=== PATIENT | male | born 1940 | race Caucasian/White ===

== ENCOUNTER 2016-10-10 11:27 | Outpatient (CLI) | payer MEDICARE, OTHER ==
[2016-10-10] VITALS (53 sets, daily range): BP systolic 100–212; BP diastolic 50–118; PULSE 47–83; RESP 10–32; TEMP 96.3–97.4; O2SAT 94–99; Ht 165.1 cm; Wt 119.1 kg
[~2016-10-10] VITALS: Ht 165.1 cm; Wt 119.1 kg
[~2016-10-10 11:27] MED LIST: ALBU8.5H INH; ASPI-557 PO; CARV25TA28 PO; CYAN100T PO; DULO60CA25 PO; FURO20TA4 PO; GABA-215 PO; GEMF600T PO; GLUC1TAB PO; INSU500V SQ; ONDA4TAB7 PO; ROSU20TA23 PO; TELM1TAB11 PO; WARF5TAB76 PO; [UNRECOGNIZED DRUG - CODE] PO
--- NOTE | 2016-10-10 11:35 | NUR ---
ADMIT PT AMBULATORY TO ROOM 126. ATTENDING.
[2016-10-10] MEDS: NORMAL SALINE 1,000 ML IV SCH ×2 (12:20→18:54)
[2016-10-10 12:30] LABS: BASOPHILS # (AUTO) 0.1 T/MM3 (0-0.2); BASOPHILS % (AUTO) 0.8 % (0-2); EOSINOPHILS # (AUTO) 0.4 T/MM3 (0-0.5); EOSINOPHILS % (AUTO) 5.9 % (0-4); HCT - HEMATOCRIT 47.7 % (41-53); HGB - HEMOGLOBIN 16.2 GM/DL (13.5-17.5); IMMATURE GRANULOCYTE # (AUTO) 0.03 T/MM3 (0.00-0.03); IMMATURE GRANULOCYTE % (AUTO) 0.4 % (0.0-0.5); INR 1.66 (0.76-1.04); LYMPHOCYTES # (AUTO) 2.8 T/MM3 (1-4.8); LYMPHOCYTES % (AUTO) 38.9 % (23-45); MEAN CORPUSCULAR VOLUME 91.4 UM3 (80-100); MEAN PLATELET VOLUME 10.3 UM3 (9.4-12.4); MONOCYTES # (AUTO) 0.6 T/MM3 (0-0.8); NEUTROPHILS #(AUTO)-ABSOLUTE 3.3 T/MM3 (1.8-7.7); PROTHROMBIN TIME 18.1 SEC (9.31-12.49); RED BLOOD COUNT 5.22 M/MM3 (4.50-5.90); WBC - WHITE BLOOD COUNT 7.1 T/MM3 (4.5-11.0)
[2016-10-10 12:35] LABS: ANION GAP 14 MEQ/L (5-15); BUN/CREATININE RATIO 23 RATIO (6-26); CALCIUM 9.6 MG/DL (8.4-10.2); CHLORIDE 100 MEQ/L (98-107); CO2 - CARBON DIOXIDE 25 MEQ/L (22-30); CREATININE 1.4 MG/DL (0.8-1.5); GLOMERULAR FILTRATION RATE 49; GLUCOSE 324 MG/DL (75-110); POTASSIUM 4.5 MEQ/L (3.6-5); SODIUM 139 MEQ/L (134-144)
[2016-10-10] MEDS ORDERED: MECL-103 PO (12:53)
[2016-10-10] MEDS ORDERED: CHOL200026 PO (12:53)
[2016-10-10] MEDS ORDERED: ACET-62 PO (12:53)
[2016-10-10] MEDS ORDERED: HEPARIN 1,000units in NS 500ml BAG IV ONE (13:21)
[2016-10-10] MEDS ORDERED: LIDOCAINE 1% (10mg/ml) 30ml SDV ONE (13:21)
--- NOTE | 2016-10-10 13:29 | NUR ---
CM CM IN TO VISIT PATIENT, HE IS A&O. IS AT THE BEDSIDE. PATIENT PLANS TO DISCHARGE HOME, DENIES DISCHARGE NEEDS. CM CONTACT INFORMATION PROVIDED. PATIENT AND BOTH ARE INTERESTED IN DPOA AND LIVING WILL INFORMATION, THIS WAS PROVIDED. Addendum: 10/10/16 at 1330 by BUSTER WASHINGTON RN Amended: Links added.
--- NOTE | 2016-10-10 13:32 | NUR ---
CATH PT TO K 12 PRINCIPAL PER CATH CART. FAMILY ATTENDING.
--- NOTE | 2016-10-10 13:33 | NUR ---
CM LACE SCORE IS 5, NO FURTHER FOLLOW UP IS NEEDED.
[2016-10-10] MEDS ORDERED: FENTANYL 100mcg/2ml INJECTION ONE (13:38)
[2016-10-10] MEDS ORDERED: MIDAZOLAM 2mg/2ml INJECTION ONE (13:39)
[2016-10-10] MEDS ORDERED: SALINE FLUSH 10ml SYRINGE ONE (13:39)
[2016-10-10] MEDS ORDERED: CLOPIDOGREL 75 MG TABLET ONE (14:08)
[2016-10-10] MEDS ORDERED: IOHEXOL 350mg/ml 200ml BOTTLE ONE (14:11)
[2016-10-10] MEDS ORDERED: ASPIRIN 325 MG TABLET ONE (14:25)
[2016-10-10] MEDS ORDERED: LORAZEPAM 2 MG/ML INJECTION IV PRN (14:30)
[2016-10-10] MEDS ORDERED: ONDANSETRON 4mg/2ml INJECTION IV PRN (14:30)
[2016-10-10] MEDS ORDERED: MAG-AL + SIM LIQUID 30 ML UDC PO PRN (14:30)
[2016-10-10] MEDS ORDERED: BISACODYL 10 MG SUPPOSITORY RECTALLY PRN (14:30)
[2016-10-10] MEDS ORDERED: HYDROCODONE/APAP 5 mg/325 mg TABLET PO PRN (14:30)
[2016-10-10] MEDS ORDERED: PROMETHAZINE 25 MG INJECTION IV PRN (14:30)
[2016-10-10] MEDS ORDERED: MORPHINE SULFATE 4 MG SYRINGE IV PRN (14:30)
[2016-10-10] MEDS ORDERED: LORAZEPAM 1 MG TABLET PO PRN (14:30)
[2016-10-10] MEDS ORDERED: BISACODYL 5 MG E.C. TABLET PO PRN (14:30)
[2016-10-10] MEDS ORDERED: NITROGLYCERIN 0.4 MG SUBLINGUAL TABLET SL PRN (14:30)
[2016-10-10] MEDS ORDERED: MILK OF MAGNESIA 30 ML SUSP PO PRN (14:30)
[2016-10-10] MEDS ORDERED: METOCLOPRAMIDE 10mg/2ml INJECTION IV PRN (14:30)
[2016-10-10] MEDS ORDERED: ACETAMINOPHEN 325 MG TABLET PO PRN (14:30)
--- NOTE | 2016-10-10 14:50 | NUR ---
RETURN PT RETURNED TO ROOM 126 PER CATH CART WITH Mabel FRIAS RN HOLDING PRESSURE DOWN THE HURLEY. RT GROIN SITE HAS HEMATOMA LATERAL AND DISTAL TO PUNCTURE SITE. DRESSING TO BE APPLIED IN ROOM BY Mabel FRIAS RN.
[2016-10-10] MEDS: MORPHINE SULFATE 4 MG SYRINGE IV PRN ×2 (15:09→18:40)
[2016-10-10] MEDS ORDERED: LABETALOL 100mg/20ml INJECTION IV ONE (15:30)
[2016-10-10] MEDS ORDERED: FENTANYL 100mcg/2ml INJECTION IV ONE (15:30)
--- NOTE | 2016-10-10 15:58 | NUR ---
STATUS HELD PRESSURE FOR 45 MINUTES. MORPHINE AND LABETALOL IV GIVEN DURING THIS TIME (SEE EMAR). PT SLEEPING OFF AND ON. DENIES PAIN AT THIS TIME. HEMATOMA IS MARKED. CONTINUES TO BE QUITE NOTICEABLE BUT DOES NOT APPEAR TO BE GROWING, PER THE LINES OF DEMARCATION. AT BEDSIDE.
--- NOTE | 2016-10-10 16:39 | CVPROF ---
CARDIAC CATHETERIZATION, PERCUTANEOUS INTERVENTION DATE OF PROCEDURE October 10, 2016 The patient is a pleasant 76-year-old gentleman with history of coronary artery disease and coronary artery bypass graft with abnormal stress test and was referred for further evaluation by cardiac catheterization and possible intervention. Informed consent was obtained after explaining the procedure and the potential risks to the patient who agreed to proceed with the procedure. PROCEDURE 1. Left heart catheterization. 2. Coronary angiography. 3. Left ventriculography. 4. Bypass angiography. 5. Selective SAN angiography. 6. PTCA of the posterolateral artery through the vein graft to RCA. 7. Right femoral angiography to visualize the vessel for Mynx deployment. TECHNIQUE The patient was prepped and draped in the usual sterile techniques. Conscious sedation was performed using Versed and fentanyl. 1% lidocaine was used for local anesthesia. Using modified Seldinger technique, arterial access was obtained into the right femoral artery with placement of a 6-Brazilian arterial sheath. 9000 units of heparin was administered for anticoagulation. Due to tortuosity of the iliac and abdominal aorta we exchanged our sheath for a 6-Brazilian 45 cm Destination sheath. At the end of the procedure the long sheath was exchanged for a short 6-Brazilian sheath. LEFT VENTRICULOGRAPHY Left ventriculography in single-plane VIEIRA shallow projection showed normal LV systolic function with ejection fraction of 60% with no mitral regurgitation or gradient across the aortic valve. LVEDP was about 11. CORONARY ANGIOGRAPHY Left main had distal 30%-40% stenosis. The left anterior descending artery was occluded proximally. Left circumflex artery had about 30%-40% stenosis. A large marginal coming off of the circumflex had another 40% stenosis. Right coronary artery was occluded. SAN to LAD was patent with excellent flow. A vein graft to obtuse marginal was occluded. A vein graft to right coronary artery was patent. However, the posterolateral artery, which was a large vessel, had two lesions of about 70%-80% stenosis. After reviewing the angiograms we decided to proceed with intervention on the posterolateral artery through the vein graft to RCA. A 6-Brazilian Barbeau guide was advanced to the ostium of the vein graft to RCA. A Whisper wire was advanced through the graft into the distal posterolateral artery. We attempted to get a 3.0 x 18 drug-eluting Resolute Integrity stent to the lesion site. However, it would not cross due to severe tortuosity. Next, we changed our stent for a 3.0 x 20 balloon which was delivered to the mid lesion site where it was inflated up to 14 and 16 atmospheres. Next, the balloon was pulled to the proximal lesion site where it was inflated up to 16 atmospheres. The next angiogram showed excellent results with less than or equal to 20% residual stenosis. Since there was severe tortuosity and we knew that the stent was not going to cross the lesion, we did not reattempt to advance the stent to the lesion site. The patient tolerated the procedure well with no complications. At the end of the procedure the long sheath was exchanged for a short 6-Brazilian sheath and we attempted to deploy a Mynx closure device. However, it did not close the vessel and therefore manual pressure was applied. The patient tolerated the procedure well with no complications. IMPRESSION 1. Coronary artery disease as described above. 2. Normal LV systolic function with ejection fraction of 60%. 3. Successful PTCA of the posterolateral artery through the vein graft to RCA. PLAN Will keep him on aspirin at least for a month and continue risk modification in future. FRANKY
--- NOTE | 2016-10-10 17:00 | NUR ---
DEE CALDWELL, IN ROOM FOR EVAL OF HEMATOMA
--- NOTE | 2016-10-10 18:14 | NUR ---
RAPID RESPONSE DR. COBOS IN ROOM WELL OTHER STAFF FOR RR
[2016-10-10] MEDS: ATROPINE 1 MG/ML VIAL IV PRN ×2 (18:15→18:19)
--- NOTE | 2016-10-10 18:18 | NUR ---
INSURANCE MANAGER CONTACT DR. HART IN ROOM FOR PT EVAL. GAVE ORDERS WHICH INCLUDED TRANSFERING PT TO CCU.
--- NOTE | 2016-10-10 18:19 | NUR ---
ATROPINE ATROPINE 0.5MG IV ADMINISTERED AT [address] COBOS VERBAL INSTRUCTIONS FOR HR OF 47.
--- NOTE | 2016-10-10 18:30 | NUR ---
RAPID RESPONSE TEAM RESPONDING TO RAPID RESPONSE: LENORE FRANCE RN, HEDY SCHULTZ, YRIS MARTIN RN, MARIBELL, CCU RN, Lydia GIL, ELISE SHAIKH,, AM. DEE PEREIRA D. WEST, LEONELA.
--- NOTE | 2016-10-10 18:35 | NUR ---
TRANSFER PT TAKEN TO CCU BED 2 VIA S.U. BED. PERSONAL BELONGINGS GATHERED. NOTIFIED OF PT CONDITION AND TRANSFER.
--- NOTE | 2016-10-10 18:35 | NUR ---
Received from Surgical floor for recurring large hematoma after heart catheterization. VSS, Sats good.
--- NOTE | 2016-10-10 18:50 | NUR ---
have been holding groin pressure, ultrasound is here to check site, will use ultrasound device head to hold pressure on artery neck.
--- NOTE | 2016-10-10 19:00 | NUR ---
Groin pressure held with ultrasound device for 10 minutes after continually holding pressure as previously charted.
[2016-10-10] MEDS ORDERED: INSULIN REGULAR 500 UNIT/ML SQ ONE (20:15)
[2016-10-10] MEDS ORDERED: ONDANSETRON 4mg/2ml INJECTION IM PRN (21:00)
--- NOTE | 2016-10-10 22:00 | NUR ---
Status Talked with Bianka Cross APRN about patients BGM of 315 and discussed that patient has his own Humulin R U500 that he takes. After receiving orders to given patients normal evening dose, patient had an sudden episode of emesis. Afterwards patient verbalized feeling better. Called [place] back and discussed with her about the patients emesis and clarified if it was still safe to give Zofran and then the Insulin with a snack. Patient was given Zofran and his evening Insulin and was able to eat without any nausea. Groin site remains the same and will be monitored carefully during the night.
[2016-10-11] VITALS (97 sets, daily range): BP systolic 71–155; BP diastolic 40–86; PULSE 64–92; RESP 10–34; TEMP 98.2–99; O2SAT 88–99
[2016-10-11] MEDS ORDERED: ACETAMINOPHEN 500 MG TABLET PO PRN (01:45)
[2016-10-11] MEDS: MECLIZINE 25 MG PO SCH ×3 (01:45→21:34)
[2016-10-11 05:09] LABS: ANION GAP 11 MEQ/L (5-15); BUN/CREATININE RATIO 23 RATIO (6-26); CALCIUM 9.1 MG/DL (8.4-10.2); CHLORIDE 105 MEQ/L (98-107); CO2 - CARBON DIOXIDE 24 MEQ/L (22-30); CREATININE 1.4 MG/DL (0.8-1.5); GLOMERULAR FILTRATION RATE 49; GLUCOSE 160 MG/DL (75-110); POTASSIUM 4.8 MEQ/L (3.6-5); SODIUM 140 MEQ/L (134-144)
[2016-10-11 05:38] LABS: BASOPHILS # (AUTO) 0.1 T/MM3 (0-0.2); BASOPHILS % (AUTO) 0.5 % (0-2); EOSINOPHILS # (AUTO) 0.3 T/MM3 (0-0.5); HCT - HEMATOCRIT 45.3 % (41-53); HGB - HEMOGLOBIN 15.3 GM/DL (13.5-17.5); IMMATURE GRANULOCYTE # (AUTO) 0.04 T/MM3 (0.00-0.03); IMMATURE GRANULOCYTE % (AUTO) 0.4 % (0.0-0.5); LYMPHOCYTES # (AUTO) 1.8 T/MM3 (1-4.8); LYMPHOCYTES % (AUTO) 19.4 % (23-45); MEAN CORPUSCULAR HGB 30.5 UUG (26-34); MEAN CORPUSCULAR HGB CONC(MCHC 33.8 GM/DL (31-37); MEAN CORPUSCULAR VOLUME 90.4 UM3 (80-100); MEAN PLATELET VOLUME 10.5 UM3 (9.4-12.4); MONOCYTES # (AUTO) 0.9 T/MM3 (0-0.8); NEUTROPHILS #(AUTO)-ABSOLUTE 6.4 T/MM3 (1.8-7.7); NEUTROPHILS % (AUTO) 67.7 % (33-66); RED BLOOD COUNT 5.01 M/MM3 (4.50-5.90); WBC - WHITE BLOOD COUNT 9.5 T/MM3 (4.5-11.0)
--- NOTE | 2016-10-11 05:51 | NUR ---
Shift Summary Patient has slept well during most of the night. No pain was reported during the night or SOA. Patient did have an episode of dizziness with nausea in which PRN Reglan was given. HR has been 60-70s Sinus Rhythm, BP 120-110s/60-70s, O2 90% on 1L NC. Groin site has large purple bruise below insertion site and has some firm tissue around insertion site. Hematoma has decreased in size. Dressing is CDI. Patient does take Humulin R U500 (500units/1mL) three times a day. Will discuss with Pharmacy to ensure correct dosing is ordered for patient.
--- NOTE | 2016-10-11 06:28 | NUR ---
Morning BGM Morning BGM was 96 at 0630. Prior BGM at 0400 was 155. Do to drop in blood sugar, crackers and PB was given.
[2016-10-11] MEDS ORDERED: INSU500I SQ ×3 (07:30)
[2016-10-11] MEDS ORDERED: INSULIN REGULAR 100 UNIT/ML SQ SCH ×3 (08:00→17:30)
--- NOTE | 2016-10-11 08:21 | DI ---
Indication: ITS.REASON: R/O PSEUDOANEURYSM PROCEDURE: US ARTERIAL EXTREMITY LOWER RT: Technique: Grayscale color and duplex Doppler imaging was performed of the arterial tree of the right groin area. Findings: Normal waveforms in the right proximal superficial femoral artery and common femoral artery. Arterial flow was noted in the common femoral vein. There is a pseudoaneurysm present with a 4 mm neck arising from the common femoral artery. The pseudoaneurysm is predominantly occluded with a small area of two and fro flow remaining centrally. The overall size is 2.6 x 1.5 x 4.5 cm. There is an additional pseudoaneurysm pocket with hematoma present measuring 3.8 x 1.6 x 3.5 cm in size. Compression was applied was no residual flow seen in the pseudoaneurysms and normal waveforms seen in the common femoral artery and vein. IMPRESSION: Findings as above. There is a preliminary report by virtual radiologic. .
[2016-10-11] MEDS ORDERED: TELMISARTAN 80 MG TABLET PO SCH (09:00)
[2016-10-11] MEDS ORDERED: HYDROCHLOROTHIAZIDE 25 MG TABLET PO SCH (09:00)
[2016-10-11] MEDS: POM CARVEDILOL 25 MG TABLET PO SCH (09:00)
[2016-10-11] MEDS ORDERED: HYDROCHLOROTHIAZIDE PO SCH (09:00)
[2016-10-11] MEDS: CYANOCOBALAMIN (B-12) 100mcg TABLET PO SCH (09:00)
[2016-10-11] MEDS ORDERED: TELMISARTAN PO SCH (09:00)
[2016-10-11] MEDS ORDERED: ASPIRIN *EC* 81mg TABLET PO SCH (09:00)
[2016-10-11] MEDS: POM ROSUVASTATIN 20 MG TABLET PO SCH (09:01)
--- NOTE | 2016-10-11 09:01 | DI ---
Indication: ITS.REASON: pseudoaneurysm PROCEDURE: US ARTERIAL EXTREMITY LOWER RT: Technique: Grayscale color and duplex Doppler imaging was performed of the arterial tree of the right groin. Findings/ IMPRESSION: The pseudoaneurysm remains thrombosed. No flow in the two adjacent right groin hematomas. Normal waveforms in the common femoral artery and vein. .
[2016-10-11] MEDS: DULOXETINE 60 MG PO SCH (09:02)
[2016-10-11] MEDS: POM ASPIRIN *EC* 81mg TABLET PO SCH (09:03)
[2016-10-11] MEDS: DIGOXIN 250 MCG PO SCH (09:04)
[2016-10-11] MEDS: FUROSEMIDE 20 MG PO SCH (09:05)
[2016-10-11] MEDS: TELMISARTAN PO SCH (09:06)
[2016-10-11] MEDS: HYDROCHLOROTHIAZIDE PO SCH (09:06)
[2016-10-11] MEDS: GABAPENTIN 300 MG PO SCH ×4 (09:07→21:34)
[2016-10-11] MEDS: NORMAL SALINE 1,000 ML IV SCH ×2 (09:32→14:19)
--- NOTE | 2016-10-11 10:30 | NUR ---
Activity: am cares are done. The patient is ambulated about the ccu with 2 people assisting and gait belt. He states he feels light headed at first. He is assisted to the recliner.
--- NOTE | 2016-10-11 11:15 | NUR ---
BP: is 70-80 systolic. Mahi Richey APRN is and is notified. Will monitor.
[2016-10-11] MEDS ORDERED: INSULIN REGULAR 500 UNIT/ML SQ SCH ×4 (11:45→17:15)
--- NOTE | 2016-10-11 13:00 | NUR ---
BP: the patient remains sitting up. Denies discomfort or pain in his groin. The bp went up briefly while the patient was eating lunch and talking with his . The bp systolic is now 70-80's sytolic. Will notify Mahi Richey APRN.
[2016-10-11] MEDS ORDERED: NORMAL SALINE 500 ML IV ONE ×2 (13:45→14:15)
--- NOTE | 2016-10-11 13:45 | NUR ---
Fluid Bolus: NS 500 ml IV is infusing at a wide open rate.
--- NOTE | 2016-10-11 14:00 | NUR ---
Activity: the patient is assisted back to bed. Continues to c/o light headedness upon rising. When back to bed the groin is visualized. No increase in the size of the hematoma is noted.
--- NOTE | 2016-10-11 14:15 | NUR ---
BP: 71 systolic. Report is given to Mahi Richey APRN. #2 fluid bolus NS 500 ml IV is started.
[2016-10-11 14:38] LABS: HGB - HEMOGLOBIN 13.6 GM/DL (13.5-17.5)
--- NOTE | 2016-10-11 15:53 | NUR ---
CM CM IN TO VISIT WITH PT. HE IS ALERT AND ORIENTED. HIS IS PRESENT. PT PLANS TO DC HOME. HE DENIES DC NEEDS. HE IS GIVEN CM CONTACT INFORMATION. Addendum: 10/11/16 at 1554 by HAYDEN ULLOA RN Amended: Links added.
--- NOTE | 2016-10-11 16:00 | NUR ---
BP: systolic is >100. NS is infusing at 75 ml/hr. The patient is resting quietly.
--- NOTE | 2016-10-11 17:00 | NUR ---
BGM: the patient requests that we check his BGM. He feels shaky and diaphoretic. BGM is 54. OJ and a sandwich is given per patient requests.
--- NOTE | 2016-10-11 17:30 | NUR ---
BGM: upon recheck is 88.
--- NOTE | 2016-10-11 18:40 | NUR ---
Activity: The patient has been sitting up in the chair for his supper. He denies dizziness. BP systolic is >100.
--- NOTE | 2016-10-11 19:15 | NUR ---
Activity Ambulates around nurses station with assist of 2 using GB, pt became somewhat SOA by the end of walk, denies difficulty breathing.
--- NOTE | 2016-10-11 19:30 | NUR ---
Output Pt attempts to void at RNs request unsuccessfully and attempts to pass BM with only smear out, no void since cath, pt denies urge to void at this time.
--- NOTE | 2016-10-11 21:30 | NUR ---
BGM is 111 at this time, pt is concerned his levels will decrease during night and requests HS snack, RN provides tk crackers with PB and applesauce, pt has no further concerns.
[2016-10-12] VITALS (13 sets, daily range): BP systolic 122–166; BP diastolic 61–86; PULSE 73–90; RESP 16–31; TEMP 97.9–98.4; O2SAT 91–98
[2016-10-12] MEDS: NORMAL SALINE 1,000 ML IV SCH (01:19)
--- NOTE | 2016-10-12 03:01 | NUR ---
Hypoglycemia Pt requests RN check sugar at time time, reports feeling low. Pt is noted to be diaphoretic, drowsy/fatigued with respiratory rate at 10/min (previously 20-24/min), speech is mumbled and slightly slurred. BGM reveals level of 50, pt requests OJ, applesauce and ice cream, RN also offers turkey sandwich. RN observes pt drink OJ w/o difficulty before providing solid food, pt has no difficultly chewing/swallowing, will recheck BGM after finished eating.
--- NOTE | 2016-10-12 04:30 | NUR ---
F/U Hypoglycemia Recheck PP 114, pt requests milk and tk crackers, recheck again 144, pt is content with this, back to sleep.
[2016-10-12 04:59] LABS: BASOPHILS % (AUTO) 0.5 % (0-2); EOSINOPHILS # (AUTO) 0.4 T/MM3 (0-0.5); EOSINOPHILS % (AUTO) 4.3 % (0-4); HCT - HEMATOCRIT 39.8 % (41-53); HGB - HEMOGLOBIN 13.4 GM/DL (13.5-17.5); IMMATURE GRANULOCYTE # (AUTO) 0.05 T/MM3 (0.00-0.03); IMMATURE GRANULOCYTE % (AUTO) 0.6 % (0.0-0.5); LYMPHOCYTES # (AUTO) 1.8 T/MM3 (1-4.8); LYMPHOCYTES % (AUTO) 20.9 % (23-45); MEAN CORPUSCULAR HGB 31.2 UUG (26-34); MEAN CORPUSCULAR HGB CONC(MCHC 33.7 GM/DL (31-37); MEAN CORPUSCULAR VOLUME 92.6 UM3 (80-100); MEAN PLATELET VOLUME 10.1 UM3 (9.4-12.4); MONOCYTES # (AUTO) 0.8 T/MM3 (0-0.8); MONOCYTES % (AUTO) 9.5 % (0-9.0); NEUTROPHILS #(AUTO)-ABSOLUTE 5.4 T/MM3 (1.8-7.7); NEUTROPHILS % (AUTO) 64.2 % (33-66); WBC - WHITE BLOOD COUNT 8.5 T/MM3 (4.5-11.0)
[2016-10-12] MEDS ORDERED: INSULIN REGULAR 500 UNIT/ML SQ SCH ×2 (07:45)
[2016-10-12] MEDS: POM CARVEDILOL 25 MG TABLET PO SCH (09:43)
[2016-10-12] MEDS: TELMISARTAN PO SCH (09:43)
[2016-10-12] MEDS: HYDROCHLOROTHIAZIDE PO SCH (09:43)
[2016-10-12] MEDS: POM ASPIRIN *EC* 81mg TABLET PO SCH (09:43)
[2016-10-12] MEDS: DIGOXIN 250 MCG PO SCH (09:43)
[2016-10-12] MEDS: POM ROSUVASTATIN 20 MG TABLET PO SCH (09:43)
[2016-10-12] MEDS: FUROSEMIDE 20 MG PO SCH (09:43)
[2016-10-12] MEDS: MECLIZINE 25 MG PO SCH (09:43)
[2016-10-12] MEDS: DULOXETINE 60 MG PO SCH (09:43)
[2016-10-12] MEDS: CYANOCOBALAMIN (B-12) 100mcg TABLET PO SCH (09:44)
[2016-10-12] MEDS: GABAPENTIN 300 MG PO SCH (09:44)
[2016-10-12] MEDS ORDERED: INSULIN REGULAR 500 UNIT/ML SQ ONE (09:45)
--- NOTE | 2016-10-12 11:30 | NUR ---
Discharge Pt discharged home in good condition. Discharge instructions given to pt and pt's spouse. Pt ambulated to ER exit with all personal belongings.
--- NOTE | 2016-10-12 13:50 | PNPDOC ---
YESENIA PEREIRA PAROLE SUPERVISOR 10/12/16 1330: Subjective Date DATE: 10/11/16 TIME: 13:26 Subjective Lazaro is in his bed, he is hypotensive and reports some lightheadedness. He denies chest pain or pressure. Groin site is surrounded by large hematoma, which is unchanged from last evening. Objective Vital Signs Vital signs Vital Signs 10/12/16 10/12/16 10/12/16 10/12/16 02:00 03:00 04:00 04:22 Temp 98.4 Pulse 77 79 77 73 Resp 20 24 16 24 B/P 136/61 147/74 122/65 Pulse Ox 91 96 96 O2 Delivery Room Air Room Air Room Air 10/12/16 10/12/16 10/12/16 10/12/16 05:00 06:00 07:00 08:00 Pulse 80 80 90 76 Resp 17 31 18 B/P 150/80 155/72 166/86 Pulse Ox 97 98 97 O2 Delivery Room Air Room Air Room Air 10/12/16 10/12/16 10/12/16 10/12/16 08:00 09:00 09:43 10:00 Temp 98.3 Pulse 76 82 92 80 Resp 18 18 18 B/P 146/65 131/61 135/70 Pulse Ox 98 96 97 O2 Delivery Room Air Room Air Room Air Telemetry Rhythm: Sinus Rhythm Height (Feet): 5 Height (Inches): 5.00 Weight (Kilograms): 119.100 General Alert, Orientated x 3, Cooperative ENMT (Brief) mucosa moist Neck (Brief) NOT FOUND: JVD, carotid bruits Respiratory (Brief) clear all gonzalez, equal bilaterally, NOT FOUND: rales, wheezes Cardiovascular (Brief) pedal edema, regular rate, regular rhythm Abdomen (Brief) BS normo active x4, soft, NOT FOUND: tender Integumentary (Brief) dry, pink, warm Laboratory Laboratory Laboratory Tests Test 10/10/16 18:12 10/10/16 18:18 10/10/16 19:17 10/11/16 04:11 Glucometer 343mg/dL 312mg/dL 155mg/dL Activated Partial Thromboplast Time 34.4SEC Test 10/11/16 04:14 10/11/16 06:22 10/11/16 11:33 10/11/16 14:03 White Blood Count 9.5T/MM3 Red Blood Count 5.01M/MM3 Hemoglobin 15.3GM/DL 13.6GM/DL Hematocrit 45.3% Mean Corpuscular Volume 90.4UM3 Mean Corpuscular Hemoglobin 30.5UUG Mean Corpuscular Hemoglobin Concent 33.8GM/DL RDW Standard Deviation 44.8FL Platelet Count 215T/MM3 Mean Platelet Volume 10.5UM3 Immature Granulocyte % (Auto) 0.4% Neutrophils (%) (Auto) 67.7% Lymphocytes (%) (Auto) 19.4% Monocytes (%) (Auto) 9.0% Eosinophils (%) (Auto) 3.0% Basophils (%) (Auto) 0.5% Absolute Immature Granulocyte (auto 0.04T/MM3 Absolute Neutrophils (auto) 6.4T/MM3 Absolute Lymphocytes (auto) 1.8T/MM3 Absolute Monocytes (auto) 0.9T/MM3 Absolute Eosinophils (auto) 0.3T/MM3 Absolute Basophils (auto) 0.1T/MM3 Turbidity < 20 Sodium Level 140MEQ/L Potassium Level 4.8MEQ/L Chloride Level 105MEQ/L Carbon Dioxide Level 24MEQ/L Anion Gap 11MEQ/L Blood Urea Nitrogen 32.0MG/DL Creatinine 1.4MG/DL Glomerular Filtration Rate Calc 49 BUN/Creatinine Ratio 23RATIO Glucose Level 160MG/DL Calculated Osmolality 279MOSM/KG Calcium Level 9.1MG/DL Icterus Index < 2 Chemistry Specimen Hemolysis < 15 Glucometer 96mg/dL 122mg/dL Test 10/11/16 16:58 10/11/16 17:32 10/11/16 21:22 10/12/16 02:49 Glucometer 54mg/dL 88mg/dL 111mg/dL 50mg/dL Test 10/12/16 03:33 10/12/16 04:17 10/12/16 04:45 Glucometer 114mg/dL 144mg/dL White Blood Count 8.5T/MM3 Red Blood Count 4.30M/MM3 Hemoglobin 13.4GM/DL Hematocrit 39.8% Mean Corpuscular Volume 92.6UM3 Mean Corpuscular Hemoglobin 31.2UUG Mean Corpuscular Hemoglobin Concent 33.7GM/DL RDW Standard Deviation 45.4FL Platelet Count 191T/MM3 Mean Platelet Volume 10.1UM3 Immature Granulocyte % (Auto) 0.6% Neutrophils (%) (Auto) 64.2% Lymphocytes (%) (Auto) 20.9% Monocytes (%) (Auto) 9.5% Eosinophils (%) (Auto) 4.3% Basophils (%) (Auto) 0.5% Absolute Immature Granulocyte (auto 0.05T/MM3 Absolute Neutrophils (auto) 5.4T/MM3 Absolute Lymphocytes (auto) 1.8T/MM3 Absolute Monocytes (auto) 0.8T/MM3 Absolute Eosinophils (auto) 0.4T/MM3 Absolute Basophils (auto) 0.0T/MM3 Laboratory Tests 10/11/16 14:03 10/12/16 04:45 EKG SR, Sinus Arrhythmia, inferior OH Medications Current Medications Sodium Chloride (Normal Saline IV) 1,000 ml @ 75 mls/hr [id number] IV Last administered on 10/12/16t 01:19; Start 10/10/16 at 09:15 Heparin Sodium/ Sodium Chloride (HEPARIN 1,000units in NS 500ml) 1,000 unit STK- MED ONCE IV ; Start 10/10/16 at 13:21; Stop 10/10/16 at 13:22; Status DC Lidocaine HCl (Xylocaine 1%) 300 mg STK-MED ONCE .ROUTE ; Start 10/10/16 at 13: 21; Stop 10/10/16 at 13:22; Status DC Midazolam HCl (Versed) 2 mg STK-MED ONCE .ROUTE ; Start 10/10/16 at 13:39; Stop 10/10/16 at 13:40; Status DC Sodium Chloride (Iv Flush) 10 ml STK-MED ONCE .ROUTE ; Start 10/10/16 at 13:39; Stop 10/10/16 at 13:40; Status DC Heparin Sodium (Porcine) (Heparin Bolus) 10,000 unit STK-MED ONCE IV ; Start at 14:05; Stop 10/10/16 at 14:06; Status DC Clopidogrel Bisulfate (Plavix) 75 mg STK-MED ONCE .ROUTE ; Start 10/10/16 at 14: 08; Stop 10/10/16 at 14:09; Status DC Iohexol (Omnipaque) 1 bottle STK-MED ONCE .ROUTE ; Start 10/10/16 at 14:11; Stop 10/10/16 at 14:12; Status DC Aspirin (ASA) 325 mg STK-MED ONCE .ROUTE ; Start 10/10/16 at 14:25; Stop at 14:26; Status DC Atropine Sulfate (ATROPINE 1mg INJ) 0.5 mg Q5M PRN IV pulse<40 bpm AND symptomatic Last administered on 10/10/16 18:19; Start 10/10/16 at 14:30 Acetaminophen (Tylenol Regular Strength) 325-650 mg Q5H PRN PO PAIN; Start at 14:30 Morphine Sulfate (Morphine) 2-4 mg Q5MIN PRN IV ANGINA; Start 10/10/16 at 14:30 Acetaminophen/ Hydrocodone Bitart ([place] 5/325) 1-2 tabs Q5H PRN PO PAIN; Start 10/10/16 at 14:30 Promethazine HCl (Phenergan) 12.5-25 mg Q6H PRN IV NAUSEA &/OR VOMITING; Start 10/10/16 at 14:30 Nitroglycerin (Nitrostat) 0.4 mg Q5MIN PRN SL ANGINA; Start 10/10/16 at 14:30 Magnesium Hydroxide (Mom) 30 ml DAILY PRN PO CONSTIPATION; Start 10/10/16 at 14 :30 Bisacodyl (Dulcolax) 5-10 mg DAILY PRN PO CONSTIPATION; Start 10/10/16 at 14:30 Al Hydroxide/Mg Hydroxide (Maalox) 30 ml Q3H PRN PO INDIGESTION; Start at 14:30 Lorazepam (Ativan) 0.5-1 mg Q4H PRN IV ANXIETY; Start 10/10/16 at 14:30 Metoclopramide HCl (REGLAN Inj) 5-10 mg Q6H PRN IV NAUSEA &/OR VOMITING Last administered on 10/11/16 00:59; Start 10/10/16 at 14:30 Fentanyl (Fentanyl) 50 mcg O ONCE IV ; Start 10/10/16 at 15:30; Stop 10/10/16 at 15:31; Status DC Labetalol HCl (Trandate) 10 mg O ONCE IV Last administered on 10/10/16 15:25 ; Start 10/10/16 at 15:30; Stop 10/10/16 at 15:31; Status DC Ondansetron HCl (Zofran) 4 mg Q6H PRN IM NAUSEA &/OR VOMITING; Start 10/10/16 at 21:00 Acetaminophen (Tylenol Extra Strength) 1,000 mg Q8H PRN PO PAIN/AIR HUNGER; Start 10/11/16 at 01:45 Aspirin (Ecotrin) 81 mg DAILY PO Last administered on 10/12/16 09:43; Start at 09:00 Carvedilol (Coreg) 25 mg BIDWM PO Last administered on 10/12/16 09:43; Start 10/11/16 at 08:00; Status Future hold Cyanocobalamin (Vitamin B-12) 100 mcg DAILY PO ; Start 10/11/16 at 09:00 Digoxin (Lanoxin) 250 mcg DAILY PO Last administered on 10/12/16 09:43; Start 10/11/16 at 09:00 Duloxetine HCl (Cymbalta) 60 mg DAILY PO Last administered on 10/12/16 09:43; Start 10/11/16 at 09:00 Furosemide (Lasix) 20 mg DAILY PO Last administered on 10/12/16 09:43; Start 10/11/16 at 09:00 Gabapentin (Neurontin) 600 mg QID PO Last administered on 10/12/16 09:44; Start 10/11/16 at 09:00 Insulin Human Regular (Novolin R) 35 unit WB SQ ; Start 10/11/16 at 08:00; Stop 10/11/16 at 08:00; Status DC Meclizine HCl (Antivert 25 Mg) 25 mg BID PO Last administered on 10/12/16 09: 43; Start 10/11/16 at 01:45 Rosuvastatin Calcium (Crestor) 20 mg DAILY PO Last administered on 10/12/16 09 :43; Start 10/11/16 at 09:00 Telmisartan (Micardis) 80 mg DAILY PO ; Start 10/11/16 at 09:00; Stop 10/11/16 at 09:00; Status DC Hydrochlorothiazide (Hydrodiuril) 25 mg DAILY PO ; Start 10/11/16 at 09:00; Stop 10/11/16 at 09:00; Status DC Telmisartan/ Hydrochlorothiazide (Micardis Hct 80/ 25) 1 tab DAILY PO Last administered on 10/12/16 09:43; Start 10/11/16 at 09:00 Insulin Human Regular 0.45 ml 0.45 ml [id number] SQ Last administered on 10/11/16 09:33; Start 10/12/16 at 07:45 Sodium Chloride (NS) 500 ml @ 999 mls/hr Q31M ONCE IV ; Start 10/11/16 at 14:15 ; Stop 10/11/16 at 14:45; Status DC Insulin Human Regular (Humulin R U500) 0.07 ml O ONCE SQ Last administered on 10/12/16 09:45; Start 10/12/16 at 09:45; Stop 10/12/16 at 10:20; Status DC Radiology DATE OF EXAM: 10/10/16 ORDERING DOCTOR: ARABELLA HART MD TYPE OF EXAM: US ARTERIAL EXTREMITY LOWER RT REASON FOR EXAM: R/O PSEUDOANEURYSM Indication: ITS.REASON: R/O PSEUDOANEURYSM PROCEDURE: US ARTERIAL EXTREMITY LOWER RT: Technique: Grayscale color and duplex Doppler imaging was performed of the arterial tree of the right groin area. Findings: Normal waveforms in the right proximal superficial femoral artery and common femoral artery. Arterial flow was noted in the common femoral vein. There is a pseudoaneurysm present with a 4 mm neck arising from the common femoral artery. The pseudoaneurysm is predominantly occluded with a small area of two and fro flow remaining centrally. The overall size is 2.6 x 1.5 x 4.5 cm. There is an additional pseudoaneurysm pocket with hematoma present measuring 3.8 x 1.6 x 3.5 cm in size. Compression was applied was no residual flow seen in the pseudoaneurysms and normal waveforms seen in the common femoral artery and vein. IMPRESSION: Findings as above. DATE OF EXAM: 10/11/16 ORDERING DOCTOR: ARABELLA HART MD TYPE OF EXAM: US ARTERIAL EXTREMITY LOWER RT REASON FOR EXAM: pseudoaneurysm Indication: ITS.REASON: pseudoaneurysm PROCEDURE: US ARTERIAL EXTREMITY LOWER RT: Technique: Grayscale color and duplex Doppler imaging was performed of the arterial tree of the right groin. Findings/ IMPRESSION: The pseudoaneurysm remains thrombosed. No flow in the two adjacent right groin hematomas. Normal waveforms in the common femoral artery and vein. Assessment & Plan Problems: (1) Hypotension Status: Acute Qualifiers: Hypotension type: unspecified hypotension type Qualified Codes: I95.9 - Hypotension, unspecified Assessment & Plan: Gave fluid bolus of 500mL X2, repeat CBC (2) Postprocedural hemorrhage of a circulatory system organ or structure following a cardiac catheterization Status: Acute Assessment & Plan: Pseudoaneursym seen on ultrasound (3) ASCVD (arteriosclerotic cardiovascular disease) Status: Chronic Assessment & Plan: s/p angioplasty as was unable to stent RCA, Patient will be on Aspirin and Coumadin only (4) History of myocardial infarction Status: Chronic Assessment & Plan: continue BB, AMOS, Aspirin (5) Dyslipidemia Status: Chronic Assessment & Plan: continue Statin drug (6) Essential (primary) hypertension Status: Chronic Assessment & Plan: hypotensive today Plan/Intensity of Service Hypotension: Gave fluid bolus of 500mL X2, repeat CBC. hold discharge ASCVD: s/p angioplasty as was unable to stent RCA, Patient will be on Aspirin and Coumadin only ARABELLA HART MD 10/13/16 1351: Assessment & Plan Plan/Intensity of Service After examining the patient I agree with the above assessment. I am involved in the formulation of the patient's plan of care. YESENIA PEREIRA APRN Oct 12, 2016 13:30 ARABELLA HART MD Oct 13, 2016 13:51
--- NOTE | 2016-10-12 14:09 | DSPDOC ---
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 10/12/16 1409: General Date Date DATE: 10/12/16 TIME: 14:07 Attending Physician Carlin Hart MD Admitting Physician Carlin Hart MD Consulting Physician Admitting Diagnosis I25.810 ATHEROSCLERSIS OF CORONARY ARTERY BYPASS GRAFTS WITHOUT ANGINA PECT Discharge Diagnosis I25.810 Procedures CARDIAC CATHETERIZATION, PERCUTANEOUS INTERVENTION DATE OF PROCEDURE October 10, 2016 The patient is a pleasant 76-year-old gentleman with history of coronary artery disease and coronary artery bypass graft with abnormal stress test and was referred for further evaluation by cardiac catheterization and possible intervention. Informed consent was obtained after explaining the procedure and the potential risks to the patient who agreed to proceed with the procedure. PROCEDURE 1. Left heart catheterization. 2. Coronary angiography. 3. Left ventriculography. 4. Bypass angiography. 5. Selective SAN angiography. 6. PTCA of the posterolateral artery through the vein graft to RCA. 7. Right femoral angiography to visualize the vessel for Mynx deployment. TECHNIQUE The patient was prepped and draped in the usual sterile techniques. Conscious sedation was performed using Versed and fentanyl. 1% lidocaine was used for local anesthesia. Using modified Seldinger technique, arterial access was obtained into the right femoral artery with placement of a 6-[place] arterial sheath. 9000 units of heparin was administered for anticoagulation. Due to tortuosity of the iliac and abdominal aorta we exchanged our sheath for a 6-[place] 45 cm Destination sheath. At the end of the procedure the long sheath was exchanged for a short 6-[place] sheath. LEFT VENTRICULOGRAPHY Left ventriculography in single-plane VIEIRA shallow projection showed normal LV systolic function with ejection fraction of 60% with no mitral regurgitation or gradient across the aortic valve. LVEDP was about 11. CORONARY ANGIOGRAPHY Left main had distal 30%-40% stenosis. The left anterior descending artery was occluded proximally. Left circumflex artery had about 30%-40% stenosis. A large marginal coming off of the circumflex had another 40% stenosis. Right coronary artery was occluded. SAN to LAD was patent with excellent flow. A vein graft to obtuse marginal was occluded. A vein graft to right coronary artery was patent. However, the posterolateral artery, which was a large vessel, had two lesions of about 70%-80% stenosis. After reviewing the angiograms we decided to proceed with intervention on the posterolateral artery through the vein graft to RCA. A 6-[place] Barbeau guide was advanced to the ostium of the vein graft to RCA. A Whisper wire was advanced through the graft into the distal posterolateral artery. We attempted to get a 3.0 x 18 drug-eluting Resolute Integrity stent to the lesion site. However, it would not cross due to severe tortuosity. Next, we changed our stent for a 3.0 x 20 balloon which was delivered to the mid lesion site where it was inflated up to 14 and 16 atmospheres. Next, the balloon was pulled to the proximal lesion site where it was inflated up to 16 atmospheres. The next angiogram showed excellent results with less than or equal to 20% residual stenosis. Since there was severe tortuosity and we knew that the stent was not going to cross the lesion, we did not reattempt to advance the stent to the lesion site. The patient tolerated the procedure well with no complications. At the end of the procedure the long sheath was exchanged for a short 6-[place] sheath and we attempted to deploy a Mynx closure device. However, it did not close the vessel and therefore manual pressure was applied. The patient tolerated the procedure well with no complications. IMPRESSION 1. Coronary artery disease as described above. 2. Normal LV systolic function with ejection fraction of 60%. 3. Successful PTCA of the posterolateral artery through the vein graft to RCA. PLAN Will keep him on aspirin at least for a month and continue risk modification in future. Laboratory Laboratory Tests Test 10/10/16 18:12 10/10/16 18:18 10/10/16 19:17 10/11/16 04:11 Glucometer 343mg/dL 312mg/dL 155mg/dL Activated Partial Thromboplast Time 34.4SEC Test 10/11/16 04:14 10/11/16 06:22 10/11/16 11:33 10/11/16 14:03 White Blood Count 9.5T/MM3 Red Blood Count 5.01M/MM3 Hemoglobin 15.3GM/DL 13.6GM/DL Hematocrit 45.3% Mean Corpuscular Volume 90.4UM3 Mean Corpuscular Hemoglobin 30.5UUG Mean Corpuscular Hemoglobin Concent 33.8GM/DL RDW Standard Deviation 44.8FL Platelet Count 215T/MM3 Mean Platelet Volume 10.5UM3 Immature Granulocyte % (Auto) 0.4% Neutrophils (%) (Auto) 67.7% Lymphocytes (%) (Auto) 19.4% Monocytes (%) (Auto) 9.0% Eosinophils (%) (Auto) 3.0% Basophils (%) (Auto) 0.5% Absolute Immature Granulocyte (auto 0.04T/MM3 Absolute Neutrophils (auto) 6.4T/MM3 Absolute Lymphocytes (auto) 1.8T/MM3 Absolute Monocytes (auto) 0.9T/MM3 Absolute Eosinophils (auto) 0.3T/MM3 Absolute Basophils (auto) 0.1T/MM3 Turbidity < 20 Sodium Level 140MEQ/L Potassium Level 4.8MEQ/L Chloride Level 105MEQ/L Carbon Dioxide Level 24MEQ/L Anion Gap 11MEQ/L Blood Urea Nitrogen 32.0MG/DL Creatinine 1.4MG/DL Glomerular Filtration Rate Calc 49 BUN/Creatinine Ratio 23RATIO Glucose Level 160MG/DL Calculated Osmolality 279MOSM/KG Calcium Level 9.1MG/DL Icterus Index < 2 Chemistry Specimen Hemolysis < 15 Glucometer 96mg/dL 122mg/dL Test 10/11/16 16:58 10/11/16 17:32 10/11/16 21:22 10/12/16 02:49 Glucometer 54mg/dL 88mg/dL 111mg/dL 50mg/dL Test 10/12/16 03:33 10/12/16 04:17 10/12/16 04:45 Glucometer 114mg/dL 144mg/dL White Blood Count 8.5T/MM3 Red Blood Count 4.30M/MM3 Hemoglobin 13.4GM/DL Hematocrit 39.8% Mean Corpuscular Volume 92.6UM3 Mean Corpuscular Hemoglobin 31.2UUG Mean Corpuscular Hemoglobin Concent 33.7GM/DL RDW Standard Deviation 45.4FL Platelet Count 191T/MM3 Mean Platelet Volume 10.1UM3 Immature Granulocyte % (Auto) 0.6% Neutrophils (%) (Auto) 64.2% Lymphocytes (%) (Auto) 20.9% Monocytes (%) (Auto) 9.5% Eosinophils (%) (Auto) 4.3% Basophils (%) (Auto) 0.5% Absolute Immature Granulocyte (auto 0.05T/MM3 Absolute Neutrophils (auto) 5.4T/MM3 Absolute Lymphocytes (auto) 1.8T/MM3 Absolute Monocytes (auto) 0.8T/MM3 Absolute Eosinophils (auto) 0.4T/MM3 Absolute Basophils (auto) 0.0T/MM3 Laboratory Tests Test 10/11/16 04:11 10/11/16 04:14 10/11/16 06:22 10/11/16 11:33 Glucometer 155mg/dL (75-110) 96mg/dL (75-110) 122mg/dL (75-110) White Blood Count 9.5T/MM3 (4.5-11.0) Red Blood Count 5.01M/MM3 (4.50-5.90) Hemoglobin 15.3GM/DL (13.5-17.5) Hematocrit 45.3% (41-53) Mean Corpuscular Volume 90.4UM3 (80-100) Mean Corpuscular Hemoglobin 30.5UUG (26-34) Mean Corpuscular Hemoglobin Concent 33.8GM/DL (31-37) RDW Standard Deviation 44.8FL (36.9-50.2) Platelet Count 215T/MM3 (130-400) Mean Platelet Volume 10.5UM3 (9.4-12.4) Immature Granulocyte % (Auto) 0.4% (0.0-0.5) Neutrophils (%) (Auto) 67.7% (33-66) Lymphocytes (%) (Auto) 19.4% (23-45) Monocytes (%) (Auto) 9.0% (0-9.0) Eosinophils (%) (Auto) 3.0% (0-4) Basophils (%) (Auto) 0.5% (0-2) Absolute Immature Granulocyte (auto 0.04T/MM3 (0.00-0.03) Absolute Neutrophils (auto) 6.4T/MM3 (1.8-7.7) Absolute Lymphocytes (auto) 1.8T/MM3 (1-4.8) Absolute Monocytes (auto) 0.9T/MM3 (0-0.8) Absolute Eosinophils (auto) 0.3T/MM3 (0-0.5) Absolute Basophils (auto) 0.1T/MM3 (0-0.2) Turbidity < 20 (0-20) Sodium Level 140MEQ/L (134-144) Potassium Level 4.8MEQ/L (3.6-5) Chloride Level 105MEQ/L (98-107) Carbon Dioxide Level 24MEQ/L (22-30) Anion Gap 11MEQ/L (5-15) Blood Urea Nitrogen 32.0MG/DL (9-20) Creatinine 1.4MG/DL (0.8-1.5) Glomerular Filtration Rate Calc 49 BUN/Creatinine Ratio 23RATIO (6-26) Glucose Level 160MG/DL (75-110) Calculated Osmolality 279MOSM/KG (261-280) Calcium Level 9.1MG/DL (8.4-10.2) Icterus Index < 2 (0-7) Chemistry Specimen Hemolysis < 15 (0-25) Test 10/11/16 14:03 10/11/16 16:58 10/11/16 17:32 10/11/16 21:22 Hemoglobin 13.6GM/DL (13.5-17.5) Glucometer 54mg/dL (75-110) 88mg/dL (75-110) 111mg/dL (75-110) Test 10/12/16 02:49 10/12/16 03:33 10/12/16 04:17 10/12/16 04:45 Glucometer 50mg/dL (75-110) 114mg/dL (75-110) 144mg/dL (75-110) White Blood Count 8.5T/MM3 (4.5-11.0) Red Blood Count 4.30M/MM3 (4.50-5.90) Hemoglobin 13.4GM/DL (13.5-17.5) Hematocrit 39.8% (41-53) Mean Corpuscular Volume 92.6UM3 (80-100) Mean Corpuscular Hemoglobin 31.2UUG (26-34) Mean Corpuscular Hemoglobin Concent 33.7GM/DL (31-37) RDW Standard Deviation 45.4FL (36.9-50.2) Platelet Count 191T/MM3 (130-400) Mean Platelet Volume 10.1UM3 (9.4-12.4) Immature Granulocyte % (Auto) 0.6% (0.0-0.5) Neutrophils (%) (Auto) 64.2% (33-66) Lymphocytes (%) (Auto) 20.9% (23-45) Monocytes (%) (Auto) 9.5% (0-9.0) Eosinophils (%) (Auto) 4.3% (0-4) Basophils (%) (Auto) 0.5% (0-2) Absolute Immature Granulocyte (auto 0.05T/MM3 (0.00-0.03) Absolute Neutrophils (auto) 5.4T/MM3 (1.8-7.7) Absolute Lymphocytes (auto) 1.8T/MM3 (1-4.8) Absolute Monocytes (auto) 0.8T/MM3 (0-0.8) Absolute Eosinophils (auto) 0.4T/MM3 (0-0.5) Absolute Basophils (auto) 0.0T/MM3 (0-0.2) Radiology DATE OF EXAM: 10/10/16 ORDERING DOCTOR: CARLIN HART MD TYPE OF EXAM: US ARTERIAL EXTREMITY LOWER RT REASON FOR EXAM: R/O PSEUDOANEURYSM Indication: ITS.REASON: R/O PSEUDOANEURYSM PROCEDURE: US ARTERIAL EXTREMITY LOWER RT: Technique: Grayscale color and duplex Doppler imaging was performed of the arterial tree of the right groin area. Findings: Normal waveforms in the right proximal superficial femoral artery and common femoral artery. Arterial flow was noted in the common femoral vein. There is a pseudoaneurysm present with a 4 mm neck arising from the common femoral artery. The pseudoaneurysm is predominantly occluded with a small area of two and fro flow remaining centrally. The overall size is 2.6 x 1.5 x 4.5 cm. There is an additional pseudoaneurysm pocket with hematoma present measuring 3.8 x 1.6 x 3.5 cm in size. Compression was applied was no residual flow seen in the pseudoaneurysms and normal waveforms seen in the common femoral artery and vein. IMPRESSION: Findings as above. There is a preliminary report by virtual radiologic. DATE OF EXAM: 10/11/16 ORDERING DOCTOR: CRALIN HART MD TYPE OF EXAM: US ARTERIAL EXTREMITY LOWER RT REASON FOR EXAM: pseudoaneurysm Indication: ITS.REASON: pseudoaneurysm PROCEDURE: US ARTERIAL EXTREMITY LOWER RT: Technique: Grayscale color and duplex Doppler imaging was performed of the arterial tree of the right groin. Findings/ IMPRESSION: The pseudoaneurysm remains thrombosed. No flow in the two adjacent right groin hematomas. Normal waveforms in the common femoral artery and vein. History of Present Illness Lazaro is a 76 year old male who is well known to Dr. Hart who has a history of CAD, HTN, lightheadedness, HLD, DM, CKD who was admitted for a left heart cath with possible PCI on 10/10/16. Objective Vital Signs Vital signs Vital Signs 10/12/16 10/12/16 10/12/16 10/12/16 03:00 04:00 04:22 05:00 Temp 98.4 Pulse 79 77 73 80 Resp 24 16 19 B/P 147/74 122/65 150/80 Pulse Ox 96 96 97 O2 Delivery Room Air Room Air Room Air 10/12/16 10/12/16 10/12/16 10/12/16 06:00 07:00 08:00 08:00 Temp 98.3 Pulse 80 90 76 76 Resp 17 31 18 18 B/P 155/72 166/86 146/65 Pulse Ox 98 97 98 O2 Delivery Room Air Room Air Room Air 10/12/16 10/12/16 10/12/16 09:00 09:43 10:00 Pulse 82 92 80 Resp 18 18 B/P 131/61 135/70 Pulse Ox 96 97 O2 Delivery Room Air Room Air Telemetry Rhythm: Sinus Rhythm Height (Feet): 5 Height (Inches): 5.00 Weight (Kilograms): 119.100 Cardiovascular (Brief) pedal edema, regular rate, regular rhythm Laboratory Laboratory Laboratory Tests 10/12/16 04:45 Medications Current Medications Sodium Chloride (Normal Saline IV) 1,000 ml @ 75 mls/hr [id number] IV Last administered on 10/12/16t 01:19; Start 10/10/16 at 09:15 Heparin Sodium/ Sodium Chloride (HEPARIN 1,000units in NS 500ml) 1,000 unit STK- MED ONCE IV ; Start 10/10/16 at 13:21; Stop 10/10/16 at 13:22; Status DC Lidocaine HCl (Xylocaine 1%) 300 mg STK-MED ONCE .ROUTE ; Start 10/10/16 at 13: 21; Stop 10/10/16 at 13:22; Status DC Midazolam HCl (Versed) 2 mg STK-MED ONCE .ROUTE ; Start 10/10/16 at 13:39; Stop 10/10/16 at 13:40; Status DC Sodium Chloride (Iv Flush) 10 ml STK-MED ONCE .ROUTE ; Start 10/10/16 at 13:39; Stop 10/10/16 at 13:40; Status DC Heparin Sodium (Porcine) (Heparin Bolus) 10,000 unit STK-MED ONCE IV ; Start at 14:05; Stop 10/10/16 at 14:06; Status DC Clopidogrel Bisulfate (Plavix) 75 mg STK-MED ONCE .ROUTE ; Start 10/10/16 at 14: 08; Stop 10/10/16 at 14:09; Status DC Iohexol (Omnipaque) 1 bottle STK-MED ONCE .ROUTE ; Start 10/10/16 at 14:11; Stop 10/10/16 at 14:12; Status DC Aspirin (ASA) 325 mg STK-MED ONCE .ROUTE ; Start 10/10/16 at 14:25; Stop at 14:26; Status DC Atropine Sulfate (ATROPINE 1mg INJ) 0.5 mg Q5M PRN IV pulse<40 bpm AND symptomatic Last administered on 10/10/16t 18:19; Start 10/10/16 at 14:30 Acetaminophen (Tylenol Regular Strength) 325-650 mg Q5H PRN PO PAIN; Start at 14:30 Morphine Sulfate (Morphine) 2-4 mg Q5MIN PRN IV ANGINA; Start 10/10/16 at 14:30 Acetaminophen/ Hydrocodone Bitart ([place] 5/325) 1-2 tabs Q5H PRN PO PAIN; Start 10/10/16 at 14:30 Promethazine HCl (Phenergan) 12.5-25 mg Q6H PRN IV NAUSEA &/OR VOMITING; Start 10/10/16 at 14:30 Nitroglycerin (Nitrostat) 0.4 mg Q5MIN PRN SL ANGINA; Start 10/10/16 at 14:30 Magnesium Hydroxide (Mom) 30 ml DAILY PRN PO CONSTIPATION; Start 10/10/16 at 14 :30 Bisacodyl (Dulcolax) 5-10 mg DAILY PRN PO CONSTIPATION; Start 10/10/16 at 14:30 Al Hydroxide/Mg Hydroxide (Maalox) 30 ml Q3H PRN PO INDIGESTION; Start at 14:30 Lorazepam (Ativan) 0.5-1 mg Q4H PRN IV ANXIETY; Start 10/10/16 at 14:30 Metoclopramide HCl (REGLAN Inj) 5-10 mg Q6H PRN IV NAUSEA &/OR VOMITING Last administered on 10/11/16 00:59; Start 10/10/16 at 14:30 Fentanyl (Fentanyl) 50 mcg O ONCE IV ; Start 10/10/16 at 15:30; Stop 10/10/16 at 15:31; Status DC Labetalol HCl (Trandate) 10 mg O ONCE IV Last administered on 10/10/16 15:25 ; Start 10/10/16 at 15:30; Stop 10/10/16 at 15:31; Status DC Ondansetron HCl (Zofran) 4 mg Q6H PRN IM NAUSEA &/OR VOMITING; Start 10/10/16 at 21:00 Acetaminophen (Tylenol Extra Strength) 1,000 mg Q8H PRN PO PAIN/AIR HUNGER; Start 10/11/16 at 01:45 Aspirin (Ecotrin) 81 mg DAILY PO Last administered on 10/12/16 09:43; Start at 09:00 Carvedilol (Coreg) 25 mg BIDWM PO Last administered on 10/12/16 09:43; Start 10/11/16 at 08:00; Status Future hold Cyanocobalamin (Vitamin B-12) 100 mcg DAILY PO ; Start 10/11/16 at 09:00 Digoxin (Lanoxin) 250 mcg DAILY PO Last administered on 10/12/16 09:43; Start 10/11/16 at 09:00 Duloxetine HCl (Cymbalta) 60 mg DAILY PO Last administered on 10/12/16 09:43; Start 10/11/16 at 09:00 Furosemide (Lasix) 20 mg DAILY PO Last administered on 10/12/16 09:43; Start 10/11/16 at 09:00 Gabapentin (Neurontin) 600 mg QID PO Last administered on 10/12/16 09:44; Start 10/11/16 at 09:00 Insulin Human Regular (Novolin R) 35 unit WB SQ ; Start 10/11/16 at 08:00; Stop 10/11/16 at 08:00; Status DC Meclizine HCl (Antivert 25 Mg) 25 mg BID PO Last administered on 10/12/16 09: 43; Start 10/11/16 at 01:45 Rosuvastatin Calcium (Crestor) 20 mg DAILY PO Last administered on 10/12/16 09 :43; Start 10/11/16 at 09:00 Telmisartan (Micardis) 80 mg DAILY PO ; Start 10/11/16 at 09:00; Stop 10/11/16 at 09:00; Status DC Hydrochlorothiazide (Hydrodiuril) 25 mg DAILY PO ; Start 10/11/16 at 09:00; Stop 10/11/16 at 09:00; Status DC Telmisartan/ Hydrochlorothiazide (Micardis Hct 80/ 25) 1 tab DAILY PO Last administered on 10/12/16 09:43; Start 10/11/16 at 09:00 Insulin Human Regular 0.45 ml 0.45 ml ACB15 SQ Last administered on 10/11/16 09:33; Start 10/12/16 at 07:45 Sodium Chloride (NS) 500 ml @ 999 mls/hr Q31M ONCE IV ; Start 10/11/16 at 14:15 ; Stop 10/11/16 at 14:45; Status DC Insulin Human Regular (Humulin R U500) 0.07 ml O ONCE SQ Last administered on 10/12/16 09:45; Start 10/12/16 at 09:45; Stop 10/12/16 at 10:20; Status DC Hospital Course He had angioplasty of the RCA without stent and developed a large hematoma. A rapid response was called due to patient's bradycardia in the 40s, atropine was given X2 and he was transferred to CCU. PTT was normal. The following day he was ready for discharge when he became hypotensive and lightheaded. IVF boluses were given and hemoglobin rechecked, found to have dropped from 15.2 to 13.6. Discharge was held and he stayed another night in CCU for observation. Today his vitals are stable and hemoglobin is stable at 13.4 Problems: (1) Hypotension Status: Acute (2) Postprocedural hemorrhage of a circulatory system organ or structure following a cardiac catheterization Status: Acute (3) ASCVD (arteriosclerotic cardiovascular disease) Status: Chronic (4) History of myocardial infarction Status: Chronic (5) Dyslipidemia Status: Chronic (6) Essential (primary) hypertension Status: Chronic Code Status Full Code Home Meds Active Scripts Ondansetron (Zofran Odt) 4 Mg Tab.rapdis, 4 MG PO Q6HR for NAUSEA, #15 TAB Oral disintegrating tablet Prov:VANESSA LIEBERMAN APRN 08/25/16 Reported Medications Insulin Regular, Human (Humulin R U-500 Kwikpen) 500 Unit/1 Ml Insuln.pen, 0.37 ML SQ ACS 10/11/16 Insulin Regular, Human (Humulin R U-500 Kwikpen) 500 Unit/1 Ml Insuln.pen, 0.32 ML SQ ACL 10/11/16 Insulin Regular, Human (Humulin R U-500 Kwikpen) 500 Unit/1 Ml Insuln.pen, 0.45 ML SQ ACB30 10/11/16 Cholecalciferol (Vitamin D3) (Vitamin D-3) 2,000 Unit Capsule, 1 TAB PO DAILY 10/10/16 Meclizine HCl (Meclizine HCl) 25 Mg Tablet, 25 MG PO BID, TAB Take 1 tablet, by mouth, 2 times a day. 10/10/16 Acetaminophen (Acetaminophen) 500 Mg Tablet, 2 TAB PO Q8H Y for PAIN/AIR HUNGER , TAB Do not exceed 3,200 mg of acetaminophen in a 24 hours period. 10/10/16 Warfarin Sodium (Coumadin) 5 Mg Tablet, 2.5 MG PO SuTuThSa@HS 08/25/16 Glucos-MSM/Vit C/Sanjay/Hrb21 (Glucosamine-MSM Complex Tab) 1 Tab Tablet, 1 TAB PO DAILY 08/25/16 Cyanocobalamin (Vitamin B-12) 100 Mcg Tablet, 100 MCG PO DAILY 08/25/16 Rosuvastatin Calcium (Rosuvastatin Calcium) 20 Mg Tablet, 20 MG PO DAILY 07/24/16 Furosemide (Furosemide) 20 Mg Tablet, 20 MG PO DAILY 06/05/15 Warfarin Sodium (Coumadin) 5 Mg Tablet, 5 MG PO MoWeFr@HS 12/08/14 Aspirin (Aspir 81) 81 Mg Tablet.dr, 81 MG PO DAILY 12/08/14 Duloxetine Hcl (Cymbalta) 60 Mg Capsule.dr, 60 MG PO DAILY 03/24/09 Gabapentin (Gabapentin) 300 Mg Capsule, 600 MG PO QID 03/24/09 Digoxin (Digitek) 250 Mcg Tablet, 250 MCG PO DAILY 03/24/09 Telmisartan/Hydrochlorothiazid (Micardis Hct 80/25 Mg Tablet) 1 Tab Tablet, 1 TAB PO DAILY 03/24/09 Carvedilol (Coreg) 25 Mg Tablet, 25 MG PO BIDWM 03/24/09 Discharge Disposition Discharged to home in good and stable condition in the care of himself. CARLIN HART MD 10/13/16 1352: Hospital Course Home Meds Active Scripts Ondansetron (Zofran Odt) 4 Mg Tab.rapdis, 4 MG PO Q6HR for NAUSEA, #15 TAB Oral disintegrating tablet Prov:VANESSA LIEBERMAN APRN 08/25/16 Reported Medications Insulin Regular, Human (Humulin R U-500 Kwikpen) 500 Unit/1 Ml Insuln.pen, 0.37 ML SQ ACS 10/11/16 Insulin Regular, Human (Humulin R U-500 Kwikpen) 500 Unit/1 Ml Insuln.pen, 0.32 ML SQ ACL 10/11/16 Insulin Regular, Human (Humulin R U-500 Kwikpen) 500 Unit/1 Ml Insuln.pen, 0.45 ML SQ ACB30 10/11/16 Cholecalciferol (Vitamin D3) (Vitamin D-3) 2,000 Unit Capsule, 1 TAB PO DAILY 10/10/16 Meclizine HCl (Meclizine HCl) 25 Mg Tablet, 25 MG PO BID, TAB Take 1 tablet, by mouth, 2 times a day. 10/10/16 Acetaminophen (Acetaminophen) 500 Mg Tablet, 2 TAB PO Q8H Y for PAIN/AIR HUNGER , TAB Do not exceed 3,200 mg of acetaminophen in a 24 hours period. 10/10/16 Warfarin Sodium (Coumadin) 5 Mg Tablet, 2.5 MG PO SuTuThSa@HS 08/25/16 Glucos-MSM/Vit C/Sanjay/Hrb21 (Glucosamine-MSM Complex Tab) 1 Tab Tablet, 1 TAB PO DAILY 08/25/16 Cyanocobalamin (Vitamin B-12) 100 Mcg Tablet, 100 MCG PO DAILY 08/25/16 Rosuvastatin Calcium (Rosuvastatin Calcium) 20 Mg Tablet, 20 MG PO DAILY 07/24/16 Furosemide (Furosemide) 20 Mg Tablet, 20 MG PO DAILY 06/05/15 Warfarin Sodium (Coumadin) 5 Mg Tablet, 5 MG PO MoWeFr@HS 12/08/14 Aspirin (Aspir 81) 81 Mg Tablet.dr, 81 MG PO DAILY 12/08/14 Duloxetine Hcl (Cymbalta) 60 Mg Capsule.dr, 60 MG PO DAILY 03/24/09 Gabapentin (Gabapentin) 300 Mg Capsule, 600 MG PO QID 03/24/09 Digoxin (Digitek) 250 Mcg Tablet, 250 MCG PO DAILY 03/24/09 Telmisartan/Hydrochlorothiazid (Micardis Hct 80/25 Mg Tablet) 1 Tab Tablet, 1 TAB PO DAILY 03/24/09 Carvedilol (Coreg) 25 Mg Tablet, 25 MG PO BIDWM 03/24/09 Discharge Disposition After examining the patient I agree with the above assessment. I am involved in the formulation of the patient's plan of care. YESENIA PEREIRA APRN Oct 12, 2016 14:09 CARLIN HART MD Oct 13, 2016 13:52
== END 2016-10-12 11:30 | disposition home or self-care (01) ==
LOC: CATH 11:27 → SRG 11:27 → CCU 18:30 → CATH 10-12 11:30
PROVIDERS: ATTEND Internal Medicine Cardiovascular Disease
DX: I25.810 Atherosclerosis of coronary artery bypass graft(s) without angina pectoris (principal); I97.610 Postprocedural hemorrhage of a circulatory system organ or structure following a cardiac catheterization; R00.1 Bradycardia, unspecified; R94.39 Abnormal result of other cardiovascular function study; I95.9 Hypotension, unspecified; I25.2 Old myocardial infarction; E78.5 Hyperlipidemia, unspecified; I10 Essential (primary) hypertension; Z79.4 Long term (current) use of insulin; Z79.899 Other long term (current) drug therapy; Z79.01 Long term (current) use of anticoagulants; Z79.82 Long term (current) use of aspirin
CPT/HCPCS: 36415; 80048; 82948; 85018; 85025; 85610; 85730; 92920; 93005; 93459; 93926; A9270; C1725; C1760; C1769; C1874; C1887; C1893; J0461; J1644; J1815; J2250; J2405; J2765; J3010; J7030; Q9967; 93458

== ENCOUNTER 2016-11-14 10:05 | Observation (INO) | payer MEDICARE, OTHER ==
[~2016-11-14] VITALS: Ht 165.1 cm; Wt 124.9 kg
[~2016-11-14 10:05] MED LIST changes: +ACET-62 PO; -ALBU8.5H INH; +CHOL200026 PO; -GEMF600T PO; +INSU500I SQ; -INSU500V SQ; +MECL-103 PO
--- OUTSIDE RECORDS SUMMARY | 2016-11-14 10:10 | XMS REPORT | Continuity of Care Document ---
Author Author [facility] Organization [facility] Address Unknown Phone Unavailable Allergies Active Description Code Type Severity Reaction Onset Reported/Identified Relationship to Patient Clinical Status Yes No Known Medication Allergies NKMA N/A N/A 12/09/2014 Yes Lyrica NKMA N/A [id number] 08/23/2015 Medications Problems Procedures Results Encounters ACCT No. Visit Date/Time Discharge Status Pt. Type Provider Facility Loc./Unit Complaint [id number] 11/06/2015 11:29:00 2015 23:59:00 DIS Outpatient Speedy Montgomery [facility] [place] [id number] 08/23/2015 14:25:00 2015 23:59:00 DIS Outpatient Jhonatan Randle [facility] FELL TAILBONE INJURY DOI 2.26 [facility] [id number] 12/14/2014 13:12:00 Document Registration
--- NOTE | 2016-11-14 10:11 | NUR ---
PROVIDER DR. RIVERA AT BEDSIDE FOR EXAM.
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
[2016-11-14] MEDS ORDERED: NORMAL SALINE 1,000 ML IV ONE ×3 (10:16→11:15)
--- NOTE | 2016-11-14 10:23 | ERPDOC ---
Departure Disposition Decision Date: November 14, 2016 Disposition Decision Time: 13:00 Disposition: 02 TO OBS [facility] Impression Impression Impression: Primary Impression: Hypotension Hypotension type: other hypotension type Qualified Codes: I95.89 - Other hypotension Additional Impression: ARF (acute renal failure) Acute renal failure type: unspecified Qualified Codes: N17.9 - Acute kidney failure, unspecified Severity: Critical Condition: Improved Seen By: Physician only Referrals: HAWA HAMLIN DO (Family) Problems/Meds/Labs Reviewed?: Yes Medications reviewed and manag: Yes Follow up care ordered?: Yes Critical Care Note Total Time (mins): 35 Critical Care Spent: Hkhd-ca-zomr care of pt, Reviewing test results, Discuss the case w/staff, Documenting the MR, Discussion w/ family/DPOA During this visit the pt was: Critically Ill, At Risk of Deterioration Comments 35 min of critical care time assigned to this case due to its urgency, complexity of decision making, need for continued patient re-evaluation, or resources devoted to stabilizing the patient. Sepsis Confirmed/Suspected Infection: Yes SIRS Criteria: Acute mental status chg Severe Sepsis Criteria: SBP <90 or MAP <65, Creatinine >2.0mg/dL HPI - General Medical General Stated Complaint: POSS TIA Time Seen by Provider: 10:16 Source: patient Exam Limitations: no limitations HPI - General Medical Initial Comments 76yo man presents to the ER for dizziness. Pt was at Dr. Still's office earlier today; when his name was called, he had trouble standing upright and walking in a straight line (leaned to the left). Pt fell against the wall to his left. Pt was referred to the ER for further eval. Pt has had cough over the last 2-3 days. Denies other new/concerning sx. Occurred At: other Onset: Rapid, Constant Duration: 1 hr Severity: moderate Modifying Factors: IMPROVES WITH: rest Associated Symptoms: cough, DENIES: fever/chills, headaches, nausea/vomiting, shortness of breath, weakness Hx of Similar Symptoms: No Allergies: Coded Allergies: pregabalin (Verified Allergy, Severe, 11/14/16) liraglutide (Verified Allergy, Unknown, 11/14/16) Past History Patient Medical History (1) Severe sepsis (2) History of myocardial infarction (3) Right leg DVT (4) Hx of CABG (5) History of pulmonary embolism Permanent Comment: bilaterally - 09/2013 Last Edited By: Lela Colón on Jun 07, 2015 08:53 Patient Surgical History Hernia repair Cardiac [id number]. Nasal surgery as a child. Tonsillectomy Past Medical History Metabolic: cancer, diabetes, hypercholesterolemia, hypertension Cardiac: CAD, SC Neurological: neuropathy Hematologic: DVT Surgical History General: hernia Cardiac: cardiac bypass Reproductive/: other Family History Family PMH: FOUND: SC, cancer Vaccines Hx Influenza Vaccination: Yes (JUNE 2016) Hx Pneumococcal Vaccination: Yes (PCV13 JUNE 2016) Social History Substance Use Type: does not use Alcohol Intake: none Marital Status: Sexuality: female partner Housing: house Household Members: spouse Current Occupational Status: employed Review of Systems Pulmonary Respiratory: cough Neurological General: other (Leaning to left) All other Systems All Other Systems: Reviewed and Negative Physical Exam General General Nourishment: well nourished, well developed, appears stated age, no acute distress, adult, obese General Body Habitus: well groomed Vitals and Pain First Documented Vital Signs Date Time Temp Pulse Resp B/P Pulse Ox O2 Delivery O2 Flow Rate FiO2 11/14/16 10:06 98.0 76 18 85/54 94 Room Air Weight: Kilograms: Height (feet): 5 Height (inches): 5.00 Triage Pain Scale: RN VS reviewed by Provider: Yes Normal Exams: Head: Normocephalic w/o trauma Eyes: Pupils are PERRLA w/ EOMI, No scleral icterus, irritation ENMT: No facial trauma, nasal exudates, pharyngeal erythema Neck: Full range of motion, without adenopathy, JVD Lymphatic: No lymphadenopathy Musculoskeletal: No tenderness, or deformity noted Neurologic: Patient is alert, and oriented Psychiatric: Patient exhibits, appropriate attention Respiratory (brief) Respiratory: FOUND: clear all gonzalez, equal bilaterally, symmetrical, NOT FOUND : rales, wheezes Cardiovascular (brief) Cardiac: FOUND: regular rate, regular rhythm, NOT FOUND: click, gallop, murmur , pedal edema, peripheral edema, rub Capillary Refill: <2 sec Pulses: all distal extremities, equal, strong Abdomen (brief) Abdominal Brief: FOUND: bowel normo active x4, soft, NOT FOUND: distended, hepatosplenomegaly, pulsatile mass, tender Integumentary (brief) Integumentary Brief: FOUND: pink, warm Comments AKs Neurologic Mental Status: FOUND: alert, oriented, NOT FOUND: confused, disoriented Cranial Nerves: FOUND: extraocular movements, forehead movement, NOT FOUND: facial asymmetry Motor : Motor Side: bilateral Motor Location: biceps, triceps, wrist, finger extensors, quadriceps, hamstring, foot extension, foot flexion, heavy coil winder strength Motor Degree: 5 Unusual Movements: NOT FOUND: chorea, extrapyramidal symptoms, psycho-motor retardataion, tremor Sensation: FOUND: sharp intact, soft touch intact x4 ext Differential Diagnoses Considering: Acute SC, CVA, DKA, Hypo/Hyperglycemia, Hypo/Hyperkalemia, Hypo/ Hypernatremia, Medication Effect, Metabolic, Pneumonia, Poisoning/Accidental OD , Pulmonary Embolus, TIA, UTI Progress Results/Orders Orders Procedure Category Date Status Time Cbc W/Auto LAB 11/14/16 Complete Diff-Reflex Manual 10:16 Cmp - Comprehensive LAB 11/14/16 Complete Metabolic 10:16 Probnp LAB 11/14/16 Complete 10:16 Troponin I W LAB 11/14/16 Complete Hemolysis Index 10:16 INR LAB 11/14/16 Complete 10:16 EKG EKG 11/14/16 Taken 10:16 Chest 1 View RAD 11/14/16 Resulted 10:16 Iv Lock (Ed Only) EDM 11/14/16 Transmitted 10:16 Normal Saline (Normal PHA 11/14/16 Complete Saline Iv) 10:16 Aspirin (Asa) PHA 11/14/16 Complete 10:30 Lactate - Lactic Acid LAB 11/14/16 Complete 10:16 Blood Culture ADRIEN 11/14/16 In Process 10:16 Ceftriaxone I.V. (Er PHA 11/14/16 Complete Use Only) (Rocephin 10:30 Procalcitonin LAB 11/14/16 Complete 10:16 Ua, Dip Wreflex LAB 11/14/16 Complete Microsc & Ccu Nurse 10:16 Normal Saline (Normal PHA 11/14/16 Complete Saline Iv) 11:15 Normal Saline (Normal PHA 11/14/16 Complete Saline Iv) 11:15 Nielsen (Ed) EDM 11/14/16 Transmitted 11:37 Catheter Needs GUME 11/14/16 In Process Assessment 11:37 Bladder Scanner (Ed) EDM 11/14/16 Transmitted 11:37 Place In Facility: ED ADM 11/14/[address] Head W/O Contrast CT 11/14/16 Resulted 12:37 Lab Results Laboratory Tests Test 11/14/16 10:10 11/14/16 10:35 11/14/16 10:36 11/14/16 11:52 Glucometer 108mg/dL Prothromb Time International Ratio 2.62 Turbidity < 20 Sodium Level 140MEQ/L Potassium Level 4.1MEQ/L Chloride Level 103MEQ/L Carbon Dioxide Level 22MEQ/L Anion Gap 15MEQ/L Blood Urea Nitrogen 52.0MG/DL Creatinine 2.5MG/DL Glomerular Filtration Rate Calc 25 BUN/Creatinine Ratio 21RATIO Glucose Level 117MG/DL Calculated Osmolality 284MOSM/KG Calcium Level 9.5MG/DL Total Bilirubin 0.70MG/DL Icterus Index < 2 Aspartate Amino Transf (AST/SGOT) 22U/L Alanine Aminotransferase (ALT/SGPT) 38U/L Alkaline Phosphatase 38U/L Troponin I < 0.012ng/ml HH-Qji-Y-Type Natriuretic Peptide 129PG/ML Total Protein 6.6G/DL Albumin 4.1G/DL Globulin 2.5G/DL Albumin/Globulin Ratio 1.6RATIO Plasma Lactate 1.8MMOL/L Procalcitonin 0.09NG/ML Chemistry Specimen Hemolysis 30 White Blood Count 7.5T/MM3 Red Blood Count 4.88M/MM3 Hemoglobin 15.5GM/DL Hematocrit 44.1% Mean Corpuscular Volume 90.4UM3 Mean Corpuscular Hemoglobin 31.8UUG Mean Corpuscular Hemoglobin Concent 35.1GM/DL RDW Standard Deviation 46.8FL Platelet Count 215T/MM3 Mean Platelet Volume 9.9UM3 Immature Granulocyte % (Auto) 0.5% Neutrophils (%) (Auto) 51.3% Lymphocytes (%) (Auto) 33.9% Monocytes (%) (Auto) 8.8% Eosinophils (%) (Auto) 4.6% Basophils (%) (Auto) 0.9% Absolute Immature Granulocyte (auto 0.04T/MM3 Absolute Neutrophils (auto) 3.8T/MM3 Absolute Lymphocytes (auto) 2.5T/MM3 Absolute Monocytes (auto) 0.7T/MM3 Absolute Eosinophils (auto) 0.3T/MM3 Absolute Basophils (auto) 0.1T/MM3 Urine Collection Type Cleancatch-midstream Urine Color Yellow Urine Turbidity Clear Urine pH 5.0 Urine Specific [place] 1.010 Urine Protein Negative Urine Glucose (UA) Negative Urine Ketones Negative Urine Blood Negative Urine Nitrite Negative Urine Bilirubin Negative Urine Urobilinogen 0.2EU/DL Urine Leukocyte Esterase Negative Urinalysis Comment Microscopic not ind. Medications Current ED Medications Sodium Chloride (Normal Saline IV) 1,000 ml @ 0 mls/hr Q0M ONCE IV Last administered on 11/14/16 10:26; Start 11/14/16 at 10:16; Stop 11/14/16 at 10:18 ; Status DC Aspirin 324 mg 324 mg O ONCE PO Last administered on 11/14/16 10:26; Start at 10:30; Stop 11/14/16 at 10:31; Status DC Ceftriaxone Sodium 1 g/Sodium Chloride 100 ml @ 200 mls/hr O ONCE IV Last administered on 11/14/16 10:34; Start 11/14/16 at 10:30; Stop 11/14/16 at 10:59 ; Status DC Sodium Chloride 1,000 ml @ 0 mls/hr Q0M ONCE IV Last administered on 11:02; Start 11/14/16 at 11:15; Stop 11/14/16 at 11:16; Status DC Sodium Chloride (Normal Saline IV) 1,000 ml @ 0 mls/hr Q0M ONCE IV Last administered on 11/14/16 11:29; Start 11/14/16 at 11:15; Stop 11/14/16 at 11:16 ; Status DC Progress Progress Pt with persistent hypotension with moderate response to 3L IVF. Discussed case with PCM who agrees to admit pt for further eval. EKG EKG : Rate: 60-100 Rhythm: sinus [place]: normal QRS: normal Intervals: normal ST/T: inverted (V1-6), non-specific changes Interpreted by: signing physician Consult/PCP Consult/PCP #1: Physician Contacted: Dr. Peterson Time Called: 10:49 Time of first response: 10:50 Type of discussion: Phone Consult/PCP Discussion Details Does not appear to be cardiac, based on discussion. No obvious contraindication for pressors, if MAPS remain low. Consult/PCP #2: Physician Contacted: Dr. Hamlin Time Called: 12:24 Time of first response: 12:39 Type of discussion: Admit Discussion/PCP Discussion Details Will admit pt for obs and further eval. Requests eval of sacral wound and head CT. Xray Xray : Xray: CXR Portable Interpretation: Normal (Stable appearance of the chest without focal pneumonia or overt pulmonary edema.), Reviewed Written Report OCTOBERHEIDI DO November 14, 2016 10:23
--- OUTSIDE RECORDS SUMMARY | 2016-11-14 10:23 | XMS REPORT | Continuity of Care Document ---
Author Author [facility] Organization [facility] Address Unknown Phone Unavailable Allergies Active Description Code Type Severity Reaction Onset Reported/Identified Relationship to Patient Clinical Status Yes No Known Medication Allergies NKMA N/A N/A 12/09/2014 Yes Lyrica NKMA N/A [id number] 08/23/2015 Medications Problems Procedures Results Encounters ACCT No. Visit Date/Time Discharge Status Pt. Type Provider Facility Loc./Unit Complaint [id number] 11/06/2015 11:29:00 2015 23:59:00 DIS Outpatient Speedy Montgomery [facility] [place] T[place]ITE [id number] 08/23/2015 14:25:00 2015 23:59:00 DIS Outpatient Jhonatan Randle [facility] FELL TAILBONE INJURY DOI 2.26 [facility] [id number] 12/14/2014 13:12:00 Document Registration
[2016-11-14] MEDS ORDERED: CEFTRIAXONE I.V. (ER USE ONLY) 1 G in NORMAL SALINE 100 ML IV ONE (10:30)
[2016-11-14] MEDS ORDERED: ASPIRIN 81 MG CHEWABLE TABLET PO ONE (10:30)
[2016-11-14 10:44] LABS: BASOPHILS # (AUTO) 0.1 T/MM3 (0-0.2); BASOPHILS % (AUTO) 0.9 % (0-2); EOSINOPHILS # (AUTO) 0.3 T/MM3 (0-0.5); EOSINOPHILS % (AUTO) 4.6 % (0-4); HCT - HEMATOCRIT 44.1 % (41-53); HGB - HEMOGLOBIN 15.5 GM/DL (13.5-17.5); IMMATURE GRANULOCYTE # (AUTO) 0.04 T/MM3 (0.00-0.03); IMMATURE GRANULOCYTE % (AUTO) 0.5 % (0.0-0.5); LYMPHOCYTES # (AUTO) 2.5 T/MM3 (1-4.8); LYMPHOCYTES % (AUTO) 33.9 % (23-45); MEAN CORPUSCULAR HGB 31.8 UUG (26-34); MEAN CORPUSCULAR HGB CONC(MCHC 35.1 GM/DL (31-37); MEAN CORPUSCULAR VOLUME 90.4 UM3 (80-100); MEAN PLATELET VOLUME 9.9 UM3 (9.4-12.4); MONOCYTES # (AUTO) 0.7 T/MM3 (0-0.8); MONOCYTES % (AUTO) 8.8 % (0-9.0); NEUTROPHILS #(AUTO)-ABSOLUTE 3.8 T/MM3 (1.8-7.7); NEUTROPHILS % (AUTO) 51.3 % (33-66); RED BLOOD COUNT 4.88 M/MM3 (4.50-5.90); WBC - WHITE BLOOD COUNT 7.5 T/MM3 (4.5-11.0)
[2016-11-14] MEDS ORDERED: GLUC1KIT IM (10:46)
--- NOTE | 2016-11-14 10:49 | NUR ---
XRAY PORTABLE XRAY AT BEDSIDE.
[2016-11-14] MEDS ORDERED: ALBU8.5H INH (10:51)
[2016-11-14 10:52] LABS: INR 2.62 (0.77-1.03); PROTHROMBIN TIME 28.5 SEC (9.48-12.52)
[2016-11-14 10:54] LABS: ALBUMIN 4.1 G/DL (3.5-5.0); ALBUMIN/GLOBULIN RATIO 1.6 RATIO (1.1-2.2); ALKALINE PHOSPHATASE 38 U/L (38-126); ALT (SGPT) 38 U/L (21-72); ANION GAP 15 MEQ/L (5-15); AST (SGOT) 22 U/L (17-59); BUN/CREATININE RATIO 21 RATIO (6-26); CALCIUM 9.5 MG/DL (8.4-10.2); CHLORIDE 103 MEQ/L (98-107); CO2 - CARBON DIOXIDE 22 MEQ/L (22-30); CREATININE 2.5 MG/DL (0.8-1.5); GLOMERULAR FILTRATION RATE 25; GLUCOSE 117 MG/DL (75-110); POTASSIUM 4.1 MEQ/L (3.6-5); SODIUM 140 MEQ/L (134-144); TOTAL PROTEIN 6.6 G/DL (6.3-8.2)
[2016-11-14 10:55] LABS: LACTATE - LACTIC ACID 1.8 MMOL/L (0.6-2.2)
--- NOTE | 2016-11-14 11:02 | DI ---
Indication: ITS.REASON: Hypotension PROCEDURE: CHEST 1 VIEW: Encounter: Initial Comparison: August 25, [address] dated October 27, 2015 Findings: Chronic scarring in the right upper lobe. No definite new focal infiltrate. Large right hilar mass is again seen and a chronic finding. No pneumothorax or effusion. Cardiac silhouette remains moderately enlarged. Poststernotomy changes. Pulmonary vascularity is stable from the comparison. Impression: Stable appearance of the chest without focal pneumonia or overt congestive failure. .
[2016-11-14 11:06] LABS: PROBNP 129 PG/ML (0-175)
[2016-11-14 12:22] LABS: BLOOD, URINE NEGATIVE (NEGATIVE); COLOR,URINE YELLOW (YELLOW); LEUKOCYTE ESTERASE ,URINE NEGATIVE (NEGATIVE); NITRITE,URINE NEGATIVE (NEGATIVE); UROBILINOGEN,URINE 0.2 EU/DL (NORMAL)
--- NOTE | 2016-11-14 12:40 | NUR ---
PROVIDER DR. RIVERA AT BEDSIDE TO SPEAK WITH PT AND SPOUSE.
--- NOTE | 2016-11-14 12:56 | NUR ---
PROVIDER DR. HAMLIN AT BEDSIDE.
--- OUTSIDE RECORDS SUMMARY | 2016-11-14 12:58 | XMS REPORT | Continuity of Care Document ---
Author Author [facility] Organization [facility] Address Unknown Phone Unavailable Allergies Active Description Code Type Severity Reaction Onset Reported/Identified Relationship to Patient Clinical Status Yes No Known Medication Allergies NKMA N/A N/A 12/09/2014 Yes Lyrica NKMA N/A [id number] 08/23/2015 Medications Problems Procedures Results Encounters ACCT No. Visit Date/Time Discharge Status Pt. Type Provider Facility Loc./Unit Complaint [id number] 11/06/2015 11:29:00 2015 23:59:00 DIS Outpatient Speedy Montgomery [facility] [place] T[place] [id number] 08/23/2015 14:25:00 2015 23:59:00 DIS Outpatient Jhonatan Randle [facility] FELL TAILBONE INJURY DOI 2.26 [facility] [id number] 12/14/2014 13:12:00 Document Registration
--- NOTE | 2016-11-14 13:06 | NUR ---
REPORT CALLED TO LEONELA MARIN ON MEDICAL UNIT. DENIES QUESTIONS. ADVISED PT TO CT AT THIS TIME, AND WILL BRING TO ROOM UPON RETURN.
--- NOTE | 2016-11-14 13:06 | NUR ---
CT PT TO CT BY CART AT THIS TIME.
--- NOTE | 2016-11-14 13:18 | NUR ---
BACK FROM CT
--- NOTE | 2016-11-14 13:20 | NUR ---
ADMIT PT TO ROOM 137 PER CART AND ASSISTED TO BED WITHOUT INCIDENT
--- NOTE | 2016-11-14 13:20 | NUR ---
ADMIT PATIENT ADMITTED TO ROOM 137 AT THIS TIME VIA CART AND ER STAFF. PATIENT ABLE TO AMBULATE TO MEDICAL UNIT BED FROM CART. THIS RN NOTED THAT PATIENT WAS DIAPHORETIC. THIS RN ASKED FUR TINTER IF PATIENT WAS RUNNING A TEMP. ER NURSE DENIED PT HAD A TEMPERATURE. PATIENT STATES HE IS A DIABETIC. THIS RN CHECKS A BLOOD SUGAR AND IT READ LESS THAN 47. PATIENT A/OX3 AND ABLE TO SWALLOW. ONE CAN OF GRAPE JUICE ADMINISTERED AT THIS TIME. PATIENT NOT HYPOTENSIVE ON ARRIVAL. WILL CONTINUE TO MONITOR.
--- NOTE | 2016-11-14 13:32 | DI ---
Indication: ITS.REASON: DIZZINESS PROCEDURE: CT HEAD W/O CONTRAST: Encounter: Initial Comparison: August 25, 2016 Technique: Axial CT images through the head were performed without contrast. Iterative Reconstruction dose reducing technique was utilized. FINDINGS: Moderate atrophy. The ventricles are stable. There are scattered areas of low attenuation in the white matter which most likely represent changes from chronic microvascular ischemia. The brainstem, cerebellum, and cerebral hemispheres otherwise have a normal morphology and CT attenuation. There is no evidence of midline displacement. No hemorrhage, signs of acute territorial stroke, mass effect, mass lesions, or edema is evident. The visualized portions of the skull base, midface, and calvarium demonstrate no abnormality. The paranasal sinuses are well aerated and free of significant disease. The tympanic and mastoid cavities appear normal. IMPRESSION: No acute intracranial abnormality or hemorrhage. .
[2016-11-14 13:35] VITALS: Ht 165.1 cm; Wt 124.9 kg
[2016-11-14 13:40] VITALS: BP 112/60; PULSE 76; RESP 20; O2SAT 91
[2016-11-14] MEDS ORDERED: DEXTROSE 50% SYRINGE 50ml (Eq. 1 AMP) IV PRN (13:45)
[2016-11-14] MEDS ORDERED: ACETAMINOPHEN 500 MG TABLET PO PRN (13:45)
[2016-11-14] MEDS ORDERED: MECLIZINE 25 MG TABLET PO PRN (13:45)
[2016-11-14] MEDS ORDERED: ALBUTEROL INH.SOLN. 2.5mg/3ml (0.083%) Neb. AEROSOL PRN (13:45)
[2016-11-14] MEDS ORDERED: GLUCOSE ORAL GEL 40% 37.5 G TUBE PO PRN (13:45)
[2016-11-14] MEDS: NORMAL SALINE 1,000 ML IV SCH ×2 (13:54→23:44)
[2016-11-14] MEDS ORDERED: WARFARIN 2.5 MG TABLET PO SCH (14:07)
[2016-11-14 14:18] VITALS: BP_SYST 126; BP_SYST 129; BP_SYST 133; BP_DIAS 75; BP_DIAS 77; PULSE 84
--- NOTE | 2016-11-14 14:22 | NUR ---
COUMADIN CONSULT (Initial): Dx: DVT Prophylaxis Baseline INR = 2.62. Will give Warfarin 2.5mg today. Will continue to monitor and make adjustments accordingly. Thank you.
[2016-11-14] MEDS ORDERED: GLUC1500 PO (14:23)
[2016-11-14] MEDS ORDERED: CALC-946 PO (14:23)
[2016-11-14] MEDS ORDERED: GEMF600T3 PO (14:25)
[2016-11-14 14:32] VITALS: PULSE 86
--- NOTE | 2016-11-14 15:07 | CONSPD ---
YESENIA PEREIRA HIGH RISK OB 11/14/16 1442: Consultation Info Date DATE: 11/14/16 TIME: 14:38 Date of Consultation: November 14, 2016 Attending Physician: Hawa Hamlin DO Reason for Consultation: Dizziness HPI - Adult Date DATE: 11/14/16 TIME: 14:38 General Date of Admission Date of Admission: November 14, 2016 at 12:38 Chief Complaint: dizziness History of Present Illness Lazaro is a 76 year old male who is well known to Dr. Hart with a history of CAD, HTN, DVT of leg, HLD, DM II and CKD who presented to the ER for dizziness. He was at Dr. Still's office earlier today; when he had trouble standing upright and walking in a straight line (leaned to the left). He reports falling against the wall to his left. He has had cough over the last 2-3 days. Denies other new/concerning sx. Denies fever, chills, N/V/D. Denies chest pain or pressure, palpitations or dyspnea. He denies having high blood glucose levels. Past Medical History Past Medical History Metabolic: cancer, diabetes, hypercholesterolemia, hypertension Cardiac: CAD, MN Neurological: neuropathy Hematologic: DVT Surgical History General: hernia Cardiac: cardiac bypass, cardiac cath (with PTCA -09/2016) Reproductive/: other Current Medications Home Meds Active Scripts Furosemide (Lasix) 20 Mg Tablet, 1 TAB PO QOD for 30 Days, TAB 2 Refills Prov:HAWA HAMLIN DO 11/15/16 Gabapentin (Gabapentin) 600 Mg Tablet, 1 TAB PO BID for 30 Days, #60 TAB 1 Refill Prov:HAWA HAMLIN DO 11/15/16 Reported Medications Cholecalciferol (Vitamin D3) (Vitamin D3) 5,000 Unit Tablet, 5000 UNIT PO DAILY 11/14/16 Albuterol Sulfate (Proair HFA 90 mcg/actuation) 8.5 Gm Hfa.aer.ad, 2 PUFF INH Q4HR Y for PRN ORDERS 11/14/16 Glucagon,Human Recombinant (Glucagon Emergency Kit) 1 Mg/Kit Syringe, 1 MG IM PRN 11/14/16 Insulin Regular, Human (Humulin R U-500 Kwikpen) 500 Unit/1 Ml Insuln.pen, 120 UNIT SQ ACS 10/11/16 Insulin Regular, Human (Humulin R U-500 Kwikpen) 500 Unit/1 Ml Insuln.pen, 125 UNIT SQ ACL 10/11/16 Insulin Regular, Human (Humulin R U-500 Kwikpen) 500 Unit/1 Ml Insuln.pen, 175 UNIT SQ ACB30 10/11/16 Acetaminophen (Acetaminophen) 500 Mg Tablet, 2 TAB PO Q8H Y for PAIN/AIR HUNGER 10/10/16 Warfarin Sodium (Coumadin) 5 Mg Tablet, 2.5 MG PO SuTuThSa@HS 08/25/16 Cyanocobalamin (Vitamin B-12) 100 Mcg Tablet, 100 MCG PO DAILY 08/25/16 Rosuvastatin Calcium (Rosuvastatin Calcium) 20 Mg Tablet, 20 MG PO DAILY 07/24/16 Warfarin Sodium (Coumadin) 5 Mg Tablet, 5 MG PO MoWeFr@HS 12/08/14 Duloxetine Hcl (Cymbalta) 60 Mg Capsule.dr, 60 MG PO DAILY 03/24/09 Carvedilol (Coreg) 25 Mg Tablet, 25 MG PO BIDWM 03/24/09 Discontinued Reported Medications Gemfibrozil (Gemfibrozil) 600 Mg Tablet, 600 MG PO ACBID30 11/14/16 Glucosamine HCl (Glucosamine HCl) 1,500 Mg Tablet, 1500 MG PO BID 11/14/16 Meclizine HCl (Meclizine HCl) 25 Mg Tablet, 25 MG PO BID 10/10/16 Furosemide (Furosemide) 20 Mg Tablet, 20 MG PO DAILY 06/05/15 Gabapentin (Gabapentin) 300 Mg Capsule, 600 MG PO QID 03/24/09 Allergies: Coded Allergies: pregabalin (Verified Allergy, Severe, 11/14/16) liraglutide (Verified Allergy, Unknown, 11/14/16) Family History FOUND: [place], cancer Vaccines JUNE 2016 PCV07 JULY 2016 PCV07 JULY 20162014 NO BROKEN SKIN Social History Smoking Status: Current some day smoker Substance Use Type: does not use Alcohol Intake: none Marital Status: Sexuality: female partner Housing: house Household Members: spouse Current Occupational Status: employed Advance Directives: No DPOA for Healthcare Only Review of Systems Constitutional: REPORTS: dizziness, DENIES: chills, fever, syncope Eyes Vision: DENIES: vision changes ENMT Hearing: DENIES: hearing loss, tinnitus Balance: DENIES: vertigo Sinuses: NOT FOUND: rhinorrhea Mouth/Throat: DENIES: sore throat Cardiovascular DENIES: chest pain, dyspnea on exertion, murmur, orthopnea, paroxysmal nocturnal dysp Rhythm/Rate: DENIES: irregular beat, palpitations, tachycardia Vascular: DENIES: pedal edema Pulmonary Respiratory: cough GI Upper Abdomen: DENIES: nausea, vomiting Lower Abdomen: DENIES: blood in stool, diarrhea General: DENIES: dysuria Integumentary Skin: DENIES: rash, sores Neurological General: DENIES: headache, numbness, syncope, weakness All Other Systems All Other Systems: Reviewed (remainder of 10-point ROS Neg.) Physical Exam General General Nourishment: well nourished, well developed, obese, apparent age Vital Signs Vital Signs Date Time Temp Pulse Resp B/P Pulse Ox O2 Delivery O2 Flow Rate FiO2 11/14/16 14:32 86 11/14/16 14:18 129/77 133/75 126/75 11/14/16 13:40 20 91 Room Air 11/14/16 13:20 98.0 Height (Feet): 5 Height (Inches): 5.00 Telemetry Rhythm: Sinus Rhythm ENMT Brief: FOUND: mucosa moist Neck Brief: NOT FOUND: JVD, carotid bruits Respiratory Brief: FOUND: clear all gonzalez, equal bilaterally, NOT FOUND: rales , wheezes Cardiovascular (brief) Cardiac Brief: FOUND: regular rate, regular rhythm, NOT FOUND: click, gallop, murmur, pedal edema Abdomen (brief) Abdominal Brief: FOUND: BS normo active x4, soft, NOT FOUND: tender Integumentary (brief) Integumentary Brief: FOUND: dry, pink, warm Neurologic RN Documented GCS Eye Opening: Verbal: Motor: Total: Psychiatric (brief) FOUND: alert, attentive, normal affect, oriented Laboratory Laboratory Tests Test 11/14/16 10:10 11/14/16 10:35 11/14/16 10:36 11/14/16 11:52 Glucometer 108mg/dL Prothromb Time International Ratio 2.62 Turbidity < 20 Sodium Level 140MEQ/L Potassium Level 4.1MEQ/L Chloride Level 103MEQ/L Carbon Dioxide Level 22MEQ/L Anion Gap 15MEQ/L Blood Urea Nitrogen 52.0MG/DL Creatinine 2.5MG/DL Glomerular Filtration Rate Calc 25 BUN/Creatinine Ratio 21RATIO Glucose Level 117MG/DL Calculated Osmolality 284MOSM/KG Calcium Level 9.5MG/DL Total Bilirubin 0.70MG/DL Icterus Index < 2 Aspartate Amino Transf (AST/SGOT) 22U/L Alanine Aminotransferase (ALT/SGPT) 38U/L Alkaline Phosphatase 38U/L Troponin I < 0.012ng/ml [id number] Natriuretic Peptide 129PG/ML Total Protein 6.6G/DL Albumin 4.1G/DL Globulin 2.5G/DL Albumin/Globulin Ratio 1.6RATIO Plasma Lactate 1.8MMOL/L Procalcitonin 0.09NG/ML Chemistry Specimen Hemolysis 30 White Blood Count 7.5T/MM3 Red Blood Count 4.88M/MM3 Hemoglobin 15.5GM/DL Hematocrit 44.1% Mean Corpuscular Volume 90.4UM3 Mean Corpuscular Hemoglobin 31.8UUG Mean Corpuscular Hemoglobin Concent 35.1GM/DL RDW Standard Deviation 46.8FL Platelet Count 215T/MM3 Mean Platelet Volume 9.9UM3 Immature Granulocyte % (Auto) 0.5% Neutrophils (%) (Auto) 51.3% Lymphocytes (%) (Auto) 33.9% Monocytes (%) (Auto) 8.8% Eosinophils (%) (Auto) 4.6% Basophils (%) (Auto) 0.9% Absolute Immature Granulocyte (auto 0.04T/MM3 Absolute Neutrophils (auto) 3.8T/MM3 Absolute Lymphocytes (auto) 2.5T/MM3 Absolute Monocytes (auto) 0.7T/MM3 Absolute Eosinophils (auto) 0.3T/MM3 Absolute Basophils (auto) 0.1T/MM3 Urine Collection Type Cleancatch-midstream Urine Color Yellow Urine Turbidity Clear Urine pH 5.0 Urine Specific Franklin 1.010 Urine Protein Negative Urine Glucose (UA) Negative Urine Ketones Negative Urine Blood Negative Urine Nitrite Negative Urine Bilirubin Negative Urine Urobilinogen 0.2EU/DL Urine Leukocyte Esterase Negative Urinalysis Comment Microscopic not ind. Test 11/14/16 13:29 11/14/16 13:45 11/14/16 14:02 Glucometer 47mg/dL 69mg/dL 96mg/dL Laboratory Tests Test 11/14/16 10:10 11/14/16 10:35 5/23/17 10:36 11/14/16 11:52 Glucometer 108mg/dL Prothromb Time International Ratio 2.62 Turbidity < 20 Sodium Level 140MEQ/L Potassium Level 4.1MEQ/L Chloride Level 103MEQ/L Carbon Dioxide Level 22MEQ/L Anion Gap 15MEQ/L Blood Urea Nitrogen 52.0MG/DL Creatinine 2.5MG/DL Glomerular Filtration Rate Calc 25 BUN/Creatinine Ratio 21RATIO Glucose Level 117MG/DL Calculated Osmolality 284MOSM/KG Calcium Level 9.5MG/DL Total Bilirubin 0.70MG/DL Icterus Index < 2 Aspartate Amino Transf (AST/SGOT) 22U/L Alanine Aminotransferase (ALT/SGPT) 38U/L Alkaline Phosphatase 38U/L Troponin I < 0.012ng/ml SJ-Iyn-N-Type Natriuretic Peptide 129PG/ML Total Protein 6.6G/DL Albumin 4.1G/DL Globulin 2.5G/DL Albumin/Globulin Ratio 1.6RATIO Plasma Lactate 1.8MMOL/L Procalcitonin 0.09NG/ML Chemistry Specimen Hemolysis 30 White Blood Count 7.5T/MM3 Red Blood Count 4.88M/MM3 Hemoglobin 15.5GM/DL Hematocrit 44.1% Mean Corpuscular Volume 90.4UM3 Mean Corpuscular Hemoglobin 31.8UUG Mean Corpuscular Hemoglobin Concent 35.1GM/DL RDW Standard Deviation 46.8FL Platelet Count 215T/MM3 Mean Platelet Volume 9.9UM3 Immature Granulocyte % (Auto) 0.5% Neutrophils (%) (Auto) 51.3% Lymphocytes (%) (Auto) 33.9% Monocytes (%) (Auto) 8.8% Eosinophils (%) (Auto) 4.6% Basophils (%) (Auto) 0.9% Absolute Immature Granulocyte (auto 0.04T/MM3 Absolute Neutrophils (auto) 3.8T/MM3 Absolute Lymphocytes (auto) 2.5T/MM3 Absolute Monocytes (auto) 0.7T/MM3 Absolute Eosinophils (auto) 0.3T/MM3 Absolute Basophils (auto) 0.1T/MM3 Urine Collection Type Cleancatch-midstream Urine Color Yellow Urine Turbidity Clear Urine pH 5.0 Urine Specific Franklin 1.010 Urine Protein Negative Urine Glucose (UA) Negative Urine Ketones Negative Urine Blood Negative Urine Nitrite Negative Urine Bilirubin Negative Urine Urobilinogen 0.2EU/DL Urine Leukocyte Esterase Negative Urinalysis Comment Microscopic not ind. Test 11/14/16 13:29 11/14/16 13:45 11/14/16 14:02 Glucometer 47mg/dL 69mg/dL 96mg/dL EKG Radiology DATE OF PROCEDURE November 14, 2016 REFERRING PHYSICIAN Hawa Hamlin DO This is a two-dimensional echo with spectral Doppler, color-flow and M-mode. It was obtained in a patient with hypertension. Left atrial dimension is normal. Left ventricle end-diastolic dimension is normal. Left ventricle wall thickness is mildly increased. LV systolic function is normal, however all mcintosh were not visualized. The estimated ejection fraction is about 65%. Right atrium is normal. Right ventricle is normal. Aortic root dimension is normal. Mitral annulus is calcified. Mitral valve leaflets are normal with trace of mitral regurgitation. Aortic valve was not visualized well however it shows fibrocalcific changes. There is no stenosis by Doppler studies. Trace of aortic insufficiency is present. Tricuspid valve shows trace of tricuspid regurgitation with normal estimated pulmonary artery systolic pressure of 28 with calcified tricuspid annulus. Pulmonary valve was not visualized. There is no pericardial effusion. IMPRESSION 1. Technically difficult study. 2. Grossly normal LV systolic function with ejection fraction of about 65%, however, all mcintosh were not visualized. 3. Mild concentric left ventricular hypertrophy. 4. Mitral annulus calcification with trace of mitral regurgitation. 5. Aortic sclerosis with trace of aortic insufficiency. 6. Trace of tricuspid regurgitation with normal estimated pulmonary artery systolic pressure of 28. DATE OF EXAM: 11/14/16 ORDERING DOCTOR: HEIDI RIVERA DO TYPE OF EXAM: CHEST 1 VIEW REASON FOR EXAM: Hypotension Indication: ITS.REASON: Hypotension PROCEDURE: CHEST 1 VIEW: Encounter: Initial Comparison: August 25, [address] dated October 27, 2015 Findings: Chronic scarring in the right upper lobe. No definite new focal infiltrate. Large right hilar mass is again seen and a chronic finding. No pneumothorax or effusion. Cardiac silhouette remains moderately enlarged. Poststernotomy changes. Pulmonary vascularity is stable from the comparison. Impression: Stable appearance of the chest without focal pneumonia or overt congestive failure. DATE OF EXAM: 11/14/16 ORDERING DOCTOR: HEIDI RIVERA DO TYPE OF EXAM: CT HEAD W/O CONTRAST REASON FOR EXAM: DIZZINESS Indication: ITS.REASON: DIZZINESS PROCEDURE: CT HEAD W/O CONTRAST: Encounter: Initial Comparison: August 25, 2016 Technique: Axial CT images through the head were performed without contrast. Iterative Reconstruction dose reducing technique was utilized. FINDINGS: Moderate atrophy. The ventricles are stable. There are scattered areas of low attenuation in the white matter which most likely represent changes from chronic microvascular ischemia. The brainstem, cerebellum, and cerebral hemispheres otherwise have a normal morphology and CT attenuation. There is no evidence of midline displacement. No hemorrhage, signs of acute territorial stroke, mass effect, mass lesions, or edema is evident. The visualized portions of the skull base, midface, and calvarium demonstrate no abnormality. The paranasal sinuses are well aerated and free of significant disease. The tympanic and mastoid cavities appear normal. IMPRESSION: No acute intracranial abnormality or hemorrhage. Impression/Recommendation Problems: (1) Dizziness Status: Resolved Assessment & Plan: Likely due to hypotension secondary to dehydration. Patient has elevated creatinine above his usual elevation due to CKD. BNP is low for patient's age. denies recent GI illness, maybe due to elevated blood glucose and polyuria. Given 3L of IVF in the ED. B/P stable (2) ASCVD (arteriosclerotic cardiovascular disease) Status: Chronic Assessment & Plan: Recent heart cath 09/2016 with PTCA, EF was 60% at that time. Will repeat echo. continue current therapy with routine monitoring (3) Essential (primary) hypertension Status: Chronic Assessment & Plan: well controlled on medical therapy (4) Dyslipidemia Status: Chronic Assessment & Plan: Patient takes Crestor, PCP manages (5) History of deep venous thrombosis Status: Chronic Assessment & Plan: continue warfarin, PCP manages INRs (6) Morbid obesity with BMI of 45.0-49.9, adult Status: Chronic (7) Insulin dependent type 2 diabetes mellitus Status: Chronic Assessment & Plan: PCP manages Recommendation Dizziness: Likely due to hypotension secondary to dehydration. Patient has elevated creatinine, above his usual elevation due to CKD. BNP is low for patient's age. He denies recent GI illness, maybe due to elevated blood glucose and polyuria. Given 3L of IVF in the ED. B/P stable. Recent heart cath 09/2016 with PTCA, EF was 60% at that time. Will repeat echo. Thank you for allowing us to participate in the care of this patient. ARABELLA HART MD 11/17/16 2374: Past Medical History Current Medications Home Meds Active Scripts Furosemide (Lasix) 20 Mg Tablet, 1 TAB PO QOD for 30 Days, TAB 2 Refills Prov:HAWA HAMLIN DO 11/15/16 Gabapentin (Gabapentin) 600 Mg Tablet, 1 TAB PO BID for 30 Days, #60 TAB 1 Refill Prov:HAWA HAMLIN DO 11/15/16 Reported Medications Cholecalciferol (Vitamin D3) (Vitamin D3) 5,000 Unit Tablet, 5000 UNIT PO DAILY 11/14/16 Albuterol Sulfate (Proair HFA 90 mcg/actuation) 8.5 Gm Hfa.aer.ad, 2 PUFF INH Q4HR Y for PRN ORDERS 11/14/16 Glucagon,Human Recombinant (Glucagon Emergency Kit) 1 Mg/Kit Syringe, 1 MG IM PRN 11/14/16 Insulin Regular, Human (Humulin R U-500 Kwikpen) 500 Unit/1 Ml Insuln.pen, 120 UNIT SQ ACS 10/11/16 Insulin Regular, Human (Humulin R U-500 Kwikpen) 500 Unit/1 Ml Insuln.pen, 125 UNIT SQ ACL 10/11/16 Insulin Regular, Human (Humulin R U-500 Kwikpen) 500 Unit/1 Ml Insuln.pen, 175 UNIT SQ ACB30 10/11/16 Acetaminophen (Acetaminophen) 500 Mg Tablet, 2 TAB PO Q8H Y for PAIN/AIR HUNGER 10/10/16 Warfarin Sodium (Coumadin) 5 Mg Tablet, 2.5 MG PO SuTuThSa@HS 08/25/16 Cyanocobalamin (Vitamin B-12) 100 Mcg Tablet, 100 MCG PO DAILY 08/25/16 Rosuvastatin Calcium (Rosuvastatin Calcium) 20 Mg Tablet, 20 MG PO DAILY 07/24/16 Warfarin Sodium (Coumadin) 5 Mg Tablet, 5 MG PO MoWeFr@HS 12/08/14 Duloxetine Hcl (Cymbalta) 60 Mg Capsule.dr, 60 MG PO DAILY 03/24/09 Carvedilol (Coreg) 25 Mg Tablet, 25 MG PO BIDWM 03/24/09 Discontinued Reported Medications Gemfibrozil (Gemfibrozil) 600 Mg Tablet, 600 MG PO ACBID30 11/14/16 Glucosamine HCl (Glucosamine HCl) 1,500 Mg Tablet, 1500 MG PO BID 11/14/16 Meclizine HCl (Meclizine HCl) 25 Mg Tablet, 25 MG PO BID 10/10/16 Furosemide (Furosemide) 20 Mg Tablet, 20 MG PO DAILY 06/05/15 Gabapentin (Gabapentin) 300 Mg Capsule, 600 MG PO QID 03/24/09 Allergies: Coded Allergies: pregabalin (Verified Allergy, Severe, 11/14/16) liraglutide (Verified Allergy, Unknown, 11/14/16) Impression/Recommendation Recommendation After examining the patient I agree with the above assessment. I am involved in the formulation of the patient's plan of care. YESENIA PEREIRA APRN November 14, 2016 14:42 ARABELLA HART MD November 17, 2016 16:25
--- NOTE | 2016-11-14 15:52 | NUR ---
PT/OT NOTE: PT/OT evaluation performed at 15:30. Pt overall demo'ing good functional mobility. Recommend home with home health. Pt would benefit from tub/shower transfer bench to increase safety with tub transfers. Recommend pt to also utilize FWW at home for increased stability with amb. Call [phone] or [phone] with questions.
--- NOTE | 2016-11-14 16:18 | HPPDOC ---
HPI - Adult Date DATE: 11/14/16 TIME: 13:43 General Chief Complaint: dehydration, hypotension, acute kidney injury History of Present Illness patient was in his usual state of health until this AM he says. had an appointment with Dr. Still of endocrinology. he was called to go back to the room and he became lightheaded and stumbled to the left. he had to us the wall to catch him. he denies any other focal issues or symptoms associated with this. when asked, he does note that instead of taking lasix at 20mg PO daily that he has been taking two of these daily and often does so. he was taken to the ER where his cbc, INR, CXR, UA, EKG, troponin, CT head, bnp were unremarkable. his cmp was notable for a creatinine of 2.5 which is above his baseline of 1.4 and his BUN was elevated as well. blood sugar was 117 and otherwise unremarkable. sepsis protocol was initiated as his blood pressures were initially in the 60's to 80's systolic. procalcitonin and lactic acid were normal and blood cultures X2 are still pending. he was given IM rocephin 3 liters of IV normal saline at which point his blood pressures normalized. his other vitals have been stable throughout. as I speak with the patient he feels back to his baseline and denies dizziness, weakness or lightheadedness. he denies any focal neurologic deficits from review of systems as well. he has had a pressure sore on his bottom over the past couple of weeks but he notes this is getting better and denies pain/redness/drainage at the area. it was about the size of a dime but is now much smaller. it doesn't cause him much trouble. present for most of encounter today. denies fevers, chills, weakness, body aches. no syncope. denies dizziness or lightheadedness before or after the above episode. no unintentional weight loss. no fatigue or weakness. states patient has frequent and longstanding daytime somnolence but no changes of late. no ear pain, vertigo. episode earlier today was pure lightheadedness. no tinnitus or acute hearing changes. no sinus pain, sore throat, chest pain at rest or exertion, SOA at rest or exertion, hemoptysis. when asked patient notes a cough over the last 3 days with minimal clear production but he hasn't thought much of it otherwise. no headaches, neck rigidity and ROS negative for meningitis and photophobia. no orthopnea, PND. no new or changing edema. no falls, trauma or injuries. no recent travel, sick exposures, camping [place]blanc exposures, new rashes, leblanc exposures. no ab pain, GERD symptoms, nausea, vomiting, hematemesis, coffee ground emesis, melena, BRBPR, constipation, diarrhea. no urinary retention symptoms. no dysuria, hematuria, urinary frequency, flank pain, nocturia, other urinary symptoms. no new skin or soft tissue problems. he has felt a bit down since the city of [place] won't let him work his previous job anymore but denies homicidal/suicidal ideations and denies suicide attempts. denies methanol or ethylene glycol ingestion. no new issues otherwise at this time. see above and below for further review of systems. Past Medical History Past Medical History History of pulmonary embolibilaterally. 09/2013 History of right lower extremity DVT. 09/2013 History of polycythemia- had therapeutic phlebotomy Carcinoid syndrome [id number] Type 2 Diabetes hypertension Dyslipidemia Osteoarthritis Peripheral neuropathy Right hilar mass-slight increase from 2009 chest x-ray Morbid [id number] Surgical History Patient's Surgical History: Hernia repair Cardiac [id number]. Nasal surgery as a child. Tonsillectomy Current Medications Home Meds Reported Medications Gemfibrozil (Gemfibrozil) 600 Mg Tablet, 600 MG PO [id number] 11/14/16 Glucosamine HCl (Glucosamine HCl) 1,500 Mg Tablet, 1500 MG PO BID 11/14/16 Cholecalciferol (Vitamin D3) (Vitamin D3) 5,000 Unit Tablet, 5000 UNIT PO DAILY 11/14/16 Albuterol Sulfate (Proair HFA 90 mcg/actuation) 8.5 Gm Hfa.aer.ad, 2 PUFF INH Q4HR Y for PRN ORDERS 11/14/16 Glucagon,Human Recombinant (Glucagon Emergency Kit) 1 Mg/Kit Syringe, 1 MG IM PRN 11/14/16 Insulin Regular, Human (Humulin R U-500 Kwikpen) 500 Unit/1 Ml Insuln.pen, 120 UNIT SQ ACS 10/11/16 Insulin Regular, Human (Humulin R U-500 Kwikpen) 500 Unit/1 Ml Insuln.pen, 125 UNIT SQ ACL 10/11/16 Insulin Regular, Human (Humulin R U-500 Kwikpen) 500 Unit/1 Ml Insuln.pen, 175 UNIT SQ ACB30 10/11/16 Meclizine HCl (Meclizine HCl) 25 Mg Tablet, 25 MG PO BID 10/10/16 Acetaminophen (Acetaminophen) 500 Mg Tablet, 2 TAB PO Q8H Y for PAIN/AIR HUNGER 10/10/16 Warfarin Sodium (Coumadin) 5 Mg Tablet, 2.5 MG PO [id number]@HS 08/25/16 Cyanocobalamin (Vitamin B-12) 100 Mcg Tablet, 100 MCG PO DAILY 08/25/16 Rosuvastatin Calcium (Rosuvastatin Calcium) 20 Mg Tablet, 20 MG PO DAILY 07/24/16 Furosemide (Furosemide) 20 Mg Tablet, 20 MG PO DAILY 06/05/15 Warfarin Sodium (Coumadin) 5 Mg Tablet, 5 MG PO MoWeFr@HS 12/08/14 Duloxetine Hcl (Cymbalta) 60 Mg Capsule.dr, 60 MG PO DAILY 03/24/09 Gabapentin (Gabapentin) 300 Mg Capsule, 600 MG PO QID 03/24/09 Carvedilol (Coreg) 25 Mg Tablet, 25 MG PO BIDWM 03/24/09 Allergies: Coded Allergies: pregabalin (Verified Allergy, Severe, 11/14/16) liraglutide (Verified Allergy, Unknown, 11/14/16) Family History Family History: Mother with coronary artery disease and [place]. Father with colon cancer Social History Substance Use Type: does not use Alcohol Intake: none Marital Status: Sexuality: female partner Housing: house Household Members: spouse Current Occupational Status: unemployed (see above HPI.) Advance Directives: No DPOA for Healthcare Only Review of Systems Constitutional: REPORTS: see HPI Comments see above. no unintentional weight loss. Eyes General: REPORTS: see HPI Comments no skin changes. ENMT Ears: REPORTS: see HPI Comments see above HPI. Cardiovascular see HPI Comments no unilateral swelling or leg swelling. Pulmonary Respiratory: see HPI Comments see HPI. GI Upper Abdomen: see HPI Comments see HPI. General: see HPI Comments no urinary symptoms. Musculoskeletal General: see HPI Comments see above HPI. Integumentary Skin: see HPI Comments no skin or soft tissue problems other than as above listed in HPI. Neurological General: see HPI, DENIES: tremor Comments see HPI. no numbness/weakness/tingling anywhere. no focal neurologic deficits , seizure symptoms, cranial nerve symptoms. Psychiatric Psychiatric: see HPI, DENIES: suicidal ideation/attempt Endocrine see HPI, DENIES: heat/cold intolerance Comments no thyroid symptoms. Hematologic/Lymphatic see HPI Allergic/Immunological see HPI Comments see above for allergies and ADR's. Physical Exam General General Nourishment: well nourished, obese, adult General Body Habitus: well groomed Vital Signs Vital Signs Date Time Temp Pulse Resp B/P Pulse Ox O2 Delivery O2 Flow Rate FiO2 11/14/16 13:40 76 20 112/60 91 Room Air 11/14/16 13:20 98.0 Height (Feet): 5 Height (Inches): 5.00 Telemetry Rhythm: Sinus Rhythm Eyes Brief: FOUND: EOMI, PERRL Comments no scleral icterus and atraumatic. Comments TM's clear b/l at this time. no sinus pain b/l to palpation. throat clear. Comments no JVD. no thyromegally. no nuchal rigidity or photophobia. no clinical evidence of meningitis at this time. Respiratory Brief: FOUND: clear all gonzalez, equal bilaterally Comments no rales, crackles, wheezes bilaterally. no respiratory distress, retractions, accessory muscle use. moving air well. lung sounds heard in all lung gonzalez b/ l at this time. Cardiovascular (brief) Comments hRRR. stable from previous. see previous notes for details. no new edema in LE's b/l. leg symmetrical and compartments soft b/l in LE's at this time. Abdomen (brief) Abdominal Brief: FOUND: BS normo active x4, soft (X4.) Comments non tender X4. no pulsitile mass but obesity does limit exam. no organomegally. (brief) Comments no tenderness over bladder area. Lymphatic (brief) Comments no lymphedema. no LAD in head or neck or supraclavicular area at this time bilaterally. Musculoskeletal (brief) Comments no photophobia. no clinical evidence of meningitis at this time. moves all 4 extremities equally at this time. no boggy or inflammed joints. Integumentary (brief) Integumentary Brief: FOUND: dry, pink, warm Comments no rashes or lesions to uncovered areas. gluteal area examined. previous ulcer on right mid-gluteal area from previous in clinic improved. no redness, drainage, edema, fluctuance. pelayo grade 1 ulcer. not tender to touch at this time. healing well and no evidence of infection or tracking at this time. Neurologic (brief) Comments CN2-12 in tact to testing. DTR's/sensation/motor/muscle strength normal and symmetrical b/l in extremities X4. PERRLA. EOMI. no evidence of upper motor neuron lesions on exam. no nystagmus. concensual reflex in tact. cognition at patient's usual baseline. Neurologic RN Documented GCS Eye Opening: Verbal: Motor: Total: Psychiatric (brief) FOUND: alert, attentive, normal affect, oriented Comments no clinical evidence of delerium, psychosis, lisa, depression at this time. Laboratory Laboratory Tests Test 11/14/16 10:10 11/14/16 10:35 11/14/16 10:36 11/14/16 11:52 Glucometer 108mg/dL Prothromb Time International Ratio 2.62 Turbidity < 20 Sodium Level 140MEQ/L Potassium Level 4.1MEQ/L Chloride Level 103MEQ/L Carbon Dioxide Level 22MEQ/L Anion Gap 15MEQ/L Blood Urea Nitrogen 52.0MG/DL Creatinine 2.5MG/DL Glomerular Filtration Rate Calc 25 BUN/Creatinine Ratio 21RATIO Glucose Level 117MG/DL Calculated Osmolality 284MOSM/KG Calcium Level 9.5MG/DL Total Bilirubin 0.70MG/DL Icterus Index < 2 Aspartate Amino Transf (AST/SGOT) 22U/L Alanine Aminotransferase (ALT/SGPT) 38U/L Alkaline Phosphatase 38U/L Troponin I < 0.012ng/ml [id number]-[id number] Natriuretic Peptide 129PG/ML Total Protein 6.6G/DL Albumin 4.1G/DL Globulin 2.5G/DL Albumin/Globulin Ratio 1.6RATIO Plasma Lactate 1.8MMOL/L Procalcitonin 0.09NG/ML Chemistry Specimen Hemolysis 30 White Blood Count 7.5T/MM3 Red Blood Count 4.88M/MM3 Hemoglobin 15.5GM/DL Hematocrit 44.1% Mean Corpuscular Volume 90.4UM3 Mean Corpuscular Hemoglobin 31.8UUG Mean Corpuscular Hemoglobin Concent 35.1GM/DL RDW Standard Deviation 46.8FL Platelet Count 215T/MM3 Mean Platelet Volume 9.9UM3 Immature Granulocyte % (Auto) 0.5% Neutrophils (%) (Auto) 51.3% Lymphocytes (%) (Auto) 33.9% Monocytes (%) (Auto) 8.8% Eosinophils (%) (Auto) 4.6% Basophils (%) (Auto) 0.9% Absolute Immature Granulocyte (auto 0.04T/MM3 Absolute Neutrophils (auto) 3.8T/MM3 Absolute Lymphocytes (auto) 2.5T/MM3 Absolute Monocytes (auto) 0.7T/MM3 Absolute Eosinophils (auto) 0.3T/MM3 Absolute Basophils (auto) 0.1T/MM3 Urine Collection Type Cleancatch-midstream Urine Color Yellow Urine Turbidity Clear Urine pH 5.0 Urine Specific [place] 1.010 Urine Protein Negative Urine Glucose (UA) Negative Urine Ketones Negative Urine Blood Negative Urine Nitrite Negative Urine Bilirubin Negative Urine Urobilinogen 0.2EU/DL Urine Leukocyte Esterase Negative Urinalysis Comment Microscopic not ind. Microbiology see above and below. EKG see above and below. Radiology see above and below. Concerns For Adverse Events see below. Sepsis Diagnostic Criteria Hemodynamic Variables: FOUND SBP <90 mmHg Organ Dysfunction Variables: FOUND Creatinine Increase Assessment & Plan Assessment acute hypotension, acute kidney injury, orthostatic hypotension and lightheadedness, likely from overdiuresis from patient taking more lasix than prescribed. improved. hypoglycemia, resolved T2DM CAD HTN hyperlipidemia history of repeat VTE's, chronically anticoagulation diabetic neuropathy grade 1 gluteal ulcer, improving. -admit to outpatient, telemetry, routine vitals with call parameters, neuro checks q4hrs, oxygen as needed, I's and O's, diabetic diet, up with assist, I's and O's, daily weights. check orthostatic vitals. right now it appears this is from patient's non- compliance with diuretics. will see how creatinine responds to rehydration and if no improvement by later today would consider checking FeNA, renal u/s and further workup. clinically this appears to be pre-renal. ulcer on gluteal area looks ok right now. no evidence of sepsis or infection as the cause. see above for testing already completed and results from this stay. -blood cultures X2 pending. -mg, phos, bmp, tsh, troponin later today. check inr, cbc, cmp, troponin in AM. call parameters on troponins. -echocardiogram ordered. EKG in the AM. check bedside PVR. -Dr. Peterson of cardiology consulted. pharmacy consulted for coumadin management. -continue IV NS at 100ml/hr. start humolog s/s, GLUBS, hypoglycemia protocol. continue home tylenol prn, coumadin, gabapentin, oral B12, crestor. -hold home humalin before meals. hold home coreg for now as well as lasix. hold home gemfibrozil, glucagon. BPPV -continue home meclazine prn depression -continue home cymbalta osteoarthritis -hold home glucosamine COPD -continue home proair prn. all other chronic medical conditions stable and no changes to plan of care at this time. ppx -continue home coumadin and start SCD's for DVT ppx. -continue diet above for GI ppx -FULL CODE -dispo heavily dependent on the above. hopefully home tomorrow. Code Status HAWA HAMLIN DO November 14, 2016 13:45
[2016-11-14] MEDS ORDERED: INSULIN REGULAR SQ SCH (17:00)
[2016-11-14 17:26] VITALS: BP 150/99; PULSE 97; RESP 20; TEMP 97; O2SAT 97
[2016-11-14] MEDS: GABAPENTIN 600 MG TABLET PO SCH ×2 (17:26→20:55)
[2016-11-14] MEDS: INSULIN ASPART 100 UNIT/ML SQ PRN ×2 (17:55→20:55)
[2016-11-14 18:20] LABS: ANION GAP 15 MEQ/L (5-15); BUN/CREATININE RATIO 23 RATIO (6-26); CALCIUM 8.7 MG/DL (8.4-10.2); CHLORIDE 103 MEQ/L (98-107); CO2 - CARBON DIOXIDE 22 MEQ/L (22-30); CREATININE 2.1 MG/DL (0.8-1.5); GLOMERULAR FILTRATION RATE 31; GLUCOSE 228 MG/DL (75-110); MAGNESIUM 2.1 MG/DL (1.6-2.3); PHOSPHORUS 4.1 MG/DL (2.5-4.5); POTASSIUM 4.7 MEQ/L (3.6-5); SODIUM 140 MEQ/L (134-144)
[2016-11-14 20:10] VITALS: BP 148/91; PULSE 91; RESP 20; O2SAT 98
--- NOTE | 2016-11-14 21:50 | NUR ---
activity accompanied as ambulates in room. Denies dizziness or light headedness as up, pt. feels his balance is good. Gait is steady
[2016-11-14] MEDS ORDERED: POM ROSUVASTATIN 20 MG TABLET PO SCH (22:00)
[2016-11-14 23:35] VITALS: BP 153/76; PULSE 87; RESP 18; TEMP 98.6; O2SAT 93
[2016-11-15 05:24] LABS: BASOPHILS # (AUTO) 0.1 T/MM3 (0-0.2); BASOPHILS % (AUTO) 0.8 % (0-2); EOSINOPHILS # (AUTO) 0.4 T/MM3 (0-0.5); EOSINOPHILS % (AUTO) 5.2 % (0-4); HCT - HEMATOCRIT 42.9 % (41-53); HGB - HEMOGLOBIN 14.5 GM/DL (13.5-17.5); IMMATURE GRANULOCYTE # (AUTO) 0.03 T/MM3 (0.00-0.03); IMMATURE GRANULOCYTE % (AUTO) 0.4 % (0.0-0.5); LYMPHOCYTES # (AUTO) 2.8 T/MM3 (1-4.8); LYMPHOCYTES % (AUTO) 36.6 % (23-45); MEAN CORPUSCULAR HGB 31.5 UUG (26-34); MEAN CORPUSCULAR HGB CONC(MCHC 33.8 GM/DL (31-37); MEAN CORPUSCULAR VOLUME 93.1 UM3 (80-100); MEAN PLATELET VOLUME 10.4 UM3 (9.4-12.4); MONOCYTES # (AUTO) 0.6 T/MM3 (0-0.8); MONOCYTES % (AUTO) 8.5 % (0-9.0); NEUTROPHILS #(AUTO)-ABSOLUTE 3.7 T/MM3 (1.8-7.7); NEUTROPHILS % (AUTO) 48.5 % (33-66); RED BLOOD COUNT 4.61 M/MM3 (4.50-5.90); WBC - WHITE BLOOD COUNT 7.6 T/MM3 (4.5-11.0)
[2016-11-15 05:34] LABS: ALBUMIN 3.7 G/DL (3.5-5.0); ALBUMIN/GLOBULIN RATIO 1.6 RATIO (1.1-2.2); ALKALINE PHOSPHATASE 37 U/L (38-126); ALT (SGPT) 34 U/L (21-72); ANION GAP 12 MEQ/L (5-15); AST (SGOT) 21 U/L (17-59); BUN/CREATININE RATIO 26 RATIO (6-26); CALCIUM 8.4 MG/DL (8.4-10.2); CHLORIDE 105 MEQ/L (98-107); CO2 - CARBON DIOXIDE 20 MEQ/L (22-30); CREATININE 1.6 MG/DL (0.8-1.5); GLOMERULAR FILTRATION RATE 42; GLUCOSE 225 MG/DL (75-110); POTASSIUM 4.4 MEQ/L (3.6-5); SODIUM 137 MEQ/L (134-144)
[2016-11-15] MEDS: INSULIN ASPART 100 UNIT/ML SQ PRN (06:12)
[2016-11-15 06:13] LABS: INR 3.34 (0.77-1.03); PROTHROMBIN TIME 36.3 SEC (9.48-12.52)
--- NOTE | 2016-11-15 06:15 | NUR ---
comfort has slept off and on tonoc, resp. unlabored. No neuro deficits appreciated. States pain to R shoulder due to "arthritis". Tylenol offered
[2016-11-15 07:11] VITALS: BP 154/87; PULSE 76; RESP 18; TEMP 97.6; O2SAT 97
[2016-11-15] MEDS ORDERED: INSULIN REGULAR SQ SCH ×7 (07:30→17:15)
[2016-11-15] MEDS: GABAPENTIN 600 MG TABLET PO SCH (08:30)
[2016-11-15] MEDS ORDERED: INSULIN REGULAR SQ ONE (08:30)
--- NOTE | 2016-11-15 08:44 | CONSF ---
DATE OF CONSULT 11/15/2016 REASON FOR CONSULTATION Diabetes. HISTORY OF PRESENT ILLNESS Mr. Ly was in his usual state of health when he presented to my office on the day of admission for a routine diabetes checkup. Upon rising from his seat in the waiting room he noted he lost his balance and tended to veer off to the left. His exam was entirely benign at the time and his diabetes was found to be in fairly good control with just a minor change being needed to his insulin regimen. Upon arising to depart from the appointment, he again lost his balance and had a hard time even standing, again tending to fall off towards the left. He was therefore placed in a wheelchair and taken to the emergency room for further evaluation. He was found to be dehydrated and responded well to 3 liters of IV fluid therapy. He was admitted overnight for observation by his primary care physician, Dr. Orlin Gee. It is noted that his insulin doses on admission orders were U500 225 units for breakfast, 160 for lunch and 185 for supper instead of the doses that he had been prescribed which should have been 175 units for breakfast, 125 units for lunch and 120 units for supper. When he was admitted to the hospital, he did have a single hypoglycemic episode with a blood sugar of 49 due to a delayed lunch and not getting to his hospital room until about 1:30 p.m. Following that, his U500 was discontinued and he was just given sliding scale regular insulin. Subsequent blood sugars were 216 before supper, 275 after supper, and 222 fasting this morning. ALLERGIES PREGABALIN and LIRAGLUTIDE. PAST MEDICAL HISTORY Remarkable for: 1. Type 2 diabetes mellitus with significant peripheral neuropathy. 2. Hypertension. 3. Dyslipidemia. 4. Osteoarthritis. 5. Atherosclerotic coronary artery disease, status post CT and CABG. 6. Carcinoid syndrome. 9. Polycythemia. 10. Bilateral pulmonary emboli. 11. Right lower extremity DVT. 12. Morbid obesity. PAST SURGICAL HISTORY 1. Hernia repair. 2. Tonsillectomy. 3. Nasal surgery. MEDICATIONS Per EMR. FAMILY HISTORY Remarkable for CT and colon cancer. SOCIAL HISTORY The patient does not smoke nor drink alcohol. REVIEW OF SYSTEMS The patient's balance was poor but he denied dizziness or palpitations. This morning his balance has returned to normal and his gait is normal. Otherwise unremarkable except as noted in HPI. PHYSICAL EXAM GENERAL: Well-developed, well-nourished male, alert, oriented and in no acute distress. VITAL SIGNS: Blood pressure 154/87. Pulse 76. Respirations 18. HEENT: Unremarkable. NECK: Without thyromegaly or lymphadenopathy. LUNGS: Clear. HEART: Regular rate and rhythm. ABDOMEN: Normal bowel sounds. Soft and nontender. EXTREMITIES: Without edema. NEUROLOGIC: Vibratory sensation is absent in both feet. Monofilament sensation is also absent in both feet. ASSESSMENT 1. Type 2 diabetes mellitus with hyperglycemia. His dose was adjusted yesterday to eliminate some night time hypoglycemia. He should continue on this adjusted dose. 2. Diabetic peripheral neuropathy, severe. 3. Chronic long-term use of insulin. 4. Obesity. 5. Hypertension. 6. Disequilibrium, resolved after fluid therapy. RECOMMENDATIONS Resume Humulin R U500 at 175 units q. a.m., 125 units q. lunch, 120 units q. p.m. which is equivalent to 0.35 mL, 0.25 mL, and 0.24 mL which he usually administers himself using a normal U100 insulin syringe. I have asked the patient to contact me if he has any problems with these doses. Otherwise it appears that he is back to his usual state of health and will most likely be dismissed home soon. Followup will be in three months as already scheduled with my office. Thank you very much for asking me to see this nice gentleman. FRANKY
[2016-11-15] MEDS ORDERED: CYANOCOBALAMIN (B-12) 100mcg TABLET PO SCH (09:00)
[2016-11-15] MEDS ORDERED: CHOLECALCIFEROL 1,000 UNIT TABLET PO SCH (09:00)
[2016-11-15] MEDS ORDERED: DULOXETINE 60 MG CAPSULE PO SCH (09:00)
--- NOTE | 2016-11-15 09:01 | ECHOF ---
DATE OF PROCEDURE November 14, 2016 REFERRING PHYSICIAN Orlin Gee DO This is a two-dimensional echo with spectral Doppler, color-flow and M-mode. It was obtained in a patient with hypertension. Left atrial dimension is normal. Left ventricle end-diastolic dimension is normal. Left ventricle wall thickness is mildly increased. LV systolic function is normal, however all mcintosh were not visualized. The estimated ejection fraction is about 65%. Right atrium is normal. Right ventricle is normal. Aortic root dimension is normal. Mitral annulus is calcified. Mitral valve leaflets are normal with trace of mitral regurgitation. Aortic valve was not visualized well however it shows fibrocalcific changes. There is no stenosis by Doppler studies. Trace of aortic insufficiency is present. Tricuspid valve shows trace of tricuspid regurgitation with normal estimated pulmonary artery systolic pressure of 28 with calcified tricuspid annulus. Pulmonary valve was not visualized. There is no pericardial effusion. IMPRESSION 1. Technically difficult study. 2. Grossly normal LV systolic function with ejection fraction of about 65%, however, all mcintosh were not visualized. 3. Mild concentric left ventricular hypertrophy. 4. Mitral annulus calcification with trace of mitral regurgitation. 5. Aortic sclerosis with trace of aortic insufficiency. 6. Trace of tricuspid regurgitation with normal estimated pulmonary artery systolic pressure of 28. MTDD
--- NOTE | 2016-11-15 09:09 | PNPDOC ---
Subjective Date DATE: 11/15/16 TIME: 09:00 Barbara Willis is sitting up on the bedside in his room on Medical. He denies dizziness, chest pain, dyspnea or other complaints. Objective Vital Signs Vital signs Vital Signs 11/14/16 11/15/16 23:35 07:11 Temp 98.6 97.6 Pulse 87 76 Resp 18 18 B/P 153/76 154/87 Pulse Ox 93 97 O2 Delivery Room Air Room Air Telemetry Rhythm: Sinus Rhythm Height (Feet): 5 Height (Inches): 5.00 Weight (Kilograms): 124.900 General Alert, Obese, Orientated x 3, Cooperative, No Acute Distress ENMT (Brief) mucosa moist Neck (Brief) NOT FOUND: JVD, carotid bruits Respiratory (Brief) clear all gonzalez, equal bilaterally, NOT FOUND: rales, wheezes Cardiovascular (Brief) regular rate, regular rhythm, NOT FOUND: click, gallop, murmur, pedal edema, rub Abdomen (Brief) BS normo active x4, soft, NOT FOUND: tender Integumentary (Brief) dry, pink, warm Psychiatric (Brief) alert, attentive, oriented Laboratory Laboratory Laboratory Tests Test 11/14/16 10:10 11/14/16 10:35 11/14/16 10:36 11/14/16 11:52 Glucometer 108mg/dL Prothromb Time International Ratio 2.62 Turbidity < 20 Sodium Level 140MEQ/L Potassium Level 4.1MEQ/L Chloride Level 103MEQ/L Carbon Dioxide Level 22MEQ/L Anion Gap 15MEQ/L Blood Urea Nitrogen 52.0MG/DL Creatinine 2.5MG/DL Glomerular Filtration Rate Calc 25 BUN/Creatinine Ratio 21RATIO Glucose Level 117MG/DL Calculated Osmolality 284MOSM/KG Calcium Level 9.5MG/DL Total Bilirubin 0.70MG/DL Icterus Index < 2 Aspartate Amino Transf (AST/SGOT) 22U/L Alanine Aminotransferase (ALT/SGPT) 38U/L Alkaline Phosphatase 38U/L Troponin I < 0.012ng/ml [id number]-Xtl-[id number]-Type Natriuretic Peptide 129PG/ML Total Protein 6.6G/DL Albumin 4.1G/DL Globulin 2.5G/DL Albumin/Globulin Ratio 1.6RATIO Plasma Lactate 1.8MMOL/L Procalcitonin 0.09NG/ML Chemistry Specimen Hemolysis 30 White Blood Count 7.5T/MM3 Red Blood Count 4.88M/MM3 Hemoglobin 15.5GM/DL Hematocrit 44.1% Mean Corpuscular Volume 90.4UM3 Mean Corpuscular Hemoglobin 31.8UUG Mean Corpuscular Hemoglobin Concent 35.1GM/DL RDW Standard Deviation 46.8FL Platelet Count 215T/MM3 Mean Platelet Volume 9.9UM3 Immature Granulocyte % (Auto) 0.5% Neutrophils (%) (Auto) 51.3% Lymphocytes (%) (Auto) 33.9% Monocytes (%) (Auto) 8.8% Eosinophils (%) (Auto) 4.6% Basophils (%) (Auto) 0.9% Absolute Immature Granulocyte (auto 0.04T/MM3 Absolute Neutrophils (auto) 3.8T/MM3 Absolute Lymphocytes (auto) 2.5T/MM3 Absolute Monocytes (auto) 0.7T/MM3 Absolute Eosinophils (auto) 0.3T/MM3 Absolute Basophils (auto) 0.1T/MM3 Urine Collection Type Cleancatch-midstream Urine Color Yellow Urine Turbidity Clear Urine pH 5.0 Urine Specific [place] 1.010 Urine Protein Negative Urine Glucose (UA) Negative Urine Ketones Negative Urine Blood Negative Urine Nitrite Negative Urine Bilirubin Negative Urine Urobilinogen 0.2EU/DL Urine Leukocyte Esterase Negative Urinalysis Comment Microscopic not ind. Test 11/14/16 13:29 11/14/16 13:45 11/14/16 14:02 11/14/16 17:22 Glucometer 47mg/dL 69mg/dL 96mg/dL 216mg/dL Test 11/14/16 18:02 11/14/16 20:46 11/15/16 04:44 11/15/16 06:03 Turbidity < 20 < 20 Sodium Level 140MEQ/L 137MEQ/L Potassium Level 4.7MEQ/L 4.4MEQ/L Chloride Level 103MEQ/L 105MEQ/L Carbon Dioxide Level 22MEQ/L 20MEQ/L Anion Gap 15MEQ/L 12MEQ/L Blood Urea Nitrogen 49.0MG/DL 41.0MG/DL Creatinine 2.1MG/DL 1.6MG/DL Glomerular Filtration Rate Calc 31 42 BUN/Creatinine Ratio 23RATIO 26RATIO Glucose Level 228MG/DL 225MG/DL Calculated Osmolality 289MOSM/KG 281MOSM/KG Calcium Level 8.7MG/DL 8.4MG/DL Phosphorus Level 4.1MG/DL Magnesium Level 2.1MG/DL Icterus Index < 2 < 2 Troponin I < 0.012ng/ml < 0.012ng/ml Thyroid Stimulating Hormone (TSH) 0.89MIU/L Chemistry Specimen Hemolysis < 15 23 Glucometer 275mg/dL 222mg/dL White Blood Count 7.6T/MM3 Red Blood Count 4.61M/MM3 Hemoglobin 14.5GM/DL Hematocrit 42.9% Mean Corpuscular Volume 93.1UM3 Mean Corpuscular Hemoglobin 31.5UUG Mean Corpuscular Hemoglobin Concent 33.8GM/DL RDW Standard Deviation 47.7FL Platelet Count 202T/MM3 Mean Platelet Volume 10.4UM3 Immature Granulocyte % (Auto) 0.4% Neutrophils (%) (Auto) 48.5% Lymphocytes (%) (Auto) 36.6% Monocytes (%) (Auto) 8.5% Eosinophils (%) (Auto) 5.2% Basophils (%) (Auto) 0.8% Absolute Immature Granulocyte (auto 0.03T/MM3 Absolute Neutrophils (auto) 3.7T/MM3 Absolute Lymphocytes (auto) 2.8T/MM3 Absolute Monocytes (auto) 0.6T/MM3 Absolute Eosinophils (auto) 0.4T/MM3 Absolute Basophils (auto) 0.1T/MM3 Prothromb Time International Ratio 3.34 Total Bilirubin 0.60MG/DL Aspartate Amino Transf (AST/SGOT) 21U/L Alanine Aminotransferase (ALT/SGPT) 34U/L Alkaline Phosphatase 37U/L Total Protein 6.0G/DL Albumin 3.7G/DL Globulin 2.3G/DL Albumin/Globulin Ratio 1.6RATIO Laboratory Tests 11/14/16 10:35 11/14/16 18:02 11/15/16 04:44 Laboratory Tests 11/14/16 10:36 11/15/16 04:44 EKG SR, NSSTT changes Medications Current Medications Aspirin 324 mg 324 mg O ONCE PO Last administered on 11/14/16t 10:26; Start at 10:30; Stop 11/14/16 at 10:31; Status DC Ceftriaxone Sodium 1 g/Sodium Chloride 100 ml @ 200 mls/hr O ONCE IV Last administered on 11/14/16 10:34; Start 11/14/16 at 10:30; Stop 11/14/16 at 10:59 ; Status DC Sodium Chloride (Normal Saline IV) 1,000 ml @ 75 mls/hr [id number] IV Last administered on 11/14/16 23:44; Start 11/14/16 at 13:30 Glucose (Glutose 15) 37.5 g PRN PRN PO HYPOGLYCEMIA; Start 11/14/16 at 13:45 Dextrose (D50w) 25 ml PRN PRN IV HYPOGLYCEMIA; Start 11/14/16 at 13:45 Insulin Aspart (Novolog) SS PRN SQ Last administered on 11/15/16 06:12; Start 11/14/16 at 13:45; Stop 11/15/16 at 07:50; Status DC Acetaminophen (Tylenol Extra Strength) 1,000 mg Q8H PRN PO PAIN/AIR HUNGER Last administered on 11/15/16 06:12; Start 11/14/16 at 13:45 Albuterol Sulfate (Proventil 2.5 Mg/3 ml) 2.5 mg Q4HR PRN AEROSOL SHORTNESS OF AIR/WHEEZING; Start 11/14/16 at 13:45 Cyanocobalamin (Vitamin B-12) 100 mcg DAILY PO Last administered on 11/15/16 08:31; Start 11/15/16 at 09:00 Duloxetine HCl (Cymbalta) 60 mg DAILY PO Last administered on 11/15/16 08:30; Start 11/15/16 at 09:00 Gabapentin (Neurontin) 600 mg QID PO Last administered on 11/15/16 08:30; Start 11/14/16 at 17:00 Meclizine HCl (Antivert 25 Mg) 25 mg BID PRN PO VERTIGO Last administered on 22:00; Start 11/14/16 at 13:45 Rosuvastatin Calcium (Crestor) 20 mg HS PO Last administered on 11/14/16 20:55 ; Start 11/14/16 at 22:00 Warfarin Sodium (COUMADIN 2.5 mg) 2.5 mg SuTuThSa@12 PO Last administered on 15:26; Start 11/14/16 at 14:07 Warfarin Sodium (COUMADIN 5 mg) 5 mg MoWeFr@12 PO ; Start 11/15/16 at 12:00 Cholecalciferol (Vit. D3) 2,000 unit DAILY PO Last administered on 11/15/16 08 :31; Start 11/15/16 at 09:00 Warfarin Sodium (Coumadin Protocol) NOTE [facility] ; Start 11/14/16 at 14:00 Carvedilol (Coreg) 25 mg BIDWM PO ; Start 11/15/16 at 08:00 Insulin Human Regular (Humulin R U-500 Pen) 120 unit ACS15 SQ ; Start 11/15/16 at 17:15; Stop 11/15/16 at 17:15; Status DC Non-Formulary Medication 175 O ONCE SQ Last administered on 11/15/16 08:29; Start 11/15/16 at 08:30; Stop 11/15/16 at 08:31; Status DC Microbiology Microbiology Microbiology Date/Time Source Procedure Growth Status 11/14/16 10:30 Peripheral/Iv Start Blood Culture - Preliminary CULTURE INITIATED - RESULTS PENDING Resulted 11/14/16 10:21 Peripheral/Iv Start Blood Culture - Preliminary CULTURE INITIATED - RESULTS PENDING Resulted Sepsis Diagnostic Criteria Sepsis Confirmed/Suspected Infection: Yes Severe Sepsis SBP <90 or MAP <65, Creatinine >2.0mg/dL Assessment & Plan Problems: (1) Dizziness Status: Resolved Assessment & Plan: Likely due to hypotension secondary to dehydration. Patient has elevated creatinine above his usual elevation due to CKD. BNP is low for patient's age. denies recent GI illness, maybe due to elevated blood glucose and polyuria. Given 3L of IVF in the ED. B/P stable (2) ASCVD (arteriosclerotic cardiovascular disease) Status: Chronic Assessment & Plan: Recent heart cath 09/2016 with PTCA, EF was 60% at that time. Will repeat echo. continue current therapy with routine monitoring (3) Essential (primary) hypertension Status: Chronic Assessment & Plan: well controlled on medical therapy (4) Dyslipidemia Status: Chronic Assessment & Plan: Patient takes Crestor, PCP manages (5) History of deep venous thrombosis Status: Chronic Assessment & Plan: continue warfarin, PCP manages INRs (6) Morbid obesity with BMI of 45.0-49.9, adult Status: Chronic (7) Insulin dependent type 2 diabetes mellitus Status: Chronic Assessment & Plan: PCP manages Plan/Intensity of Service 11/14/16 Dizziness: Likely due to hypotension secondary to dehydration. Patient has elevated creatinine, above his usual elevation due to CKD. BNP is low for patient's age. He denies recent GI illness, maybe due to elevated blood glucose and polyuria. Given 3L of IVF in the ED. B/P stable. Recent heart cath 09/2016 with PTCA, EF was 60% at that time. Will repeat echo. 11/15/16 Dizziness is resolved, renal function improved, BP elevated today. Thank you for allowing us to participate in the care of this patient. YESENIA PEREIRA APRN November 15, 2016 09:04
[2016-11-15] MEDS: POM CARVEDILOL 25 MG TABLET PO SCH ×2 (09:24→16:38)
--- NOTE | 2016-11-15 09:34 | NUR ---
DM screen/Diet recommendation Diet: [id number]; intake: 100%; Insulin: Humulin R U-500: 175 units acB; 125 units acL,120 units acS. Diet recommendation: CC 2400 kcal (to match carb intake to insulin dosage) Estimated daily total energy requirement: 2478 kcal; Where [facility] ([facility]) = 1906 kcal; Activity factor =1.3
--- NOTE | 2016-11-15 10:38 | NUR ---
JAVIER CM VISITED PT. CM EXPLAINED ROLE AND PROVIDED CONTACT INFORMATION. PT PLANS TO RETURN HOME TODAY. PT DENIES NEEDS. PT STATES HE HAS BEEN UP WALKING AND DOING WELL. PT IS AWARE TO CONTACT CM IF NEEDS ARISE.
--- NOTE | 2016-11-15 10:43 | NUR ---
COUMADIN CONSULT (Recurring): 76 y.o. Male with history of DVT and bilat. PE in September of 2013. Patient is on chronic Warfarin therapy. Home dose: 5 mg po Sun, Sun, Sun; 2.5 po Sun, , , Sat Goal INR 2.0 to 3.0 date INR dose 11/14 2.62 2.5 mg 11/15 3.34 plan : no dose today. INR supra-therapeutic. Will give no Warfarin dose today. Will continue to monitor & make adjustments accordingly. Thank you, Rachel Muse [facility]
[2016-11-15] MEDS ORDERED: POM WARFARIN 5 MG TABLET PO SCH (12:00)
[2016-11-15] MEDS: NORMAL SALINE 1,000 ML IV SCH (12:18)
[2016-11-15] MEDS: POM GABAPENTIN 300 MG CAPSULE PO SCH ×2 (12:31→16:37)
--- NOTE | 2016-11-15 12:33 | NUR ---
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 Does not carry BG meter with him. Eats 3 meals daily, about 0700,1230, and late supper, [id number]. Usually carries snacks (chips, crackers) with him or in vehicles. Often has hypoglycemia in the late afternoon [id number]. Has had two hypoglycemia episodes in the past week. Pt states that perhaps he has too much insulin at this time. CDE gave rationale for glucose tabs, after which a snack can be eaten, and to have glucose gel easily available.
--- NOTE | 2016-11-15 14:19 | NUR ---
FRIAS CATHETER DISCONTINUED A HOUR AGO. PT VOIDED 225ML. POST VOID RESIDUAL IS 0ML.
--- NOTE | 2016-11-15 14:30 | NUR ---
Page to Dr Still to inform of increased blood sugars. Dr Still discontinued sliding scale insulin this morning Addendum: 11/15/16 at 1536 by JANIE LOPEZ RN no call back from Dr Still at this time
[2016-11-15 15:06] VITALS: BP 137/62; PULSE 77; RESP 18; TEMP 98.1; O2SAT 94
[2016-11-15] MEDS ORDERED: FURO-154 PO (17:14)
[2016-11-15] MEDS ORDERED: GABA-305 PO (17:14)
--- NOTE | 2016-11-15 18:09 | PNPDOC ---
Subjective Date DATE: 11/15/16 TIME: 17:40 Subjective patient states he's back to baseline. feels great. no complaints. no headaches, stroke symptoms, syncope, orthostatic symptoms, fevers, hypoglycemia symptoms, chills, URI symptoms, altered mentation, delerium symptoms. no numbness/weakness/tingling, cranial nerve symptoms, instability of gait. no URI symptoms, vertigo, chest pain, palpitations, weakness, fatigue, body aches, palpitations, SOA, orthopnea, PND, cough, sputum production, hemoptysis. no ab pain, GERD symptoms, nausea, vomiting, hematemesis, coffee ground emesis, melena , BRBPR. no constipation of late. no diarrhea. no dysuria. urine a bit pink yesterday after blevins catheter but not now per patient. no flank pain or other urinary symptoms. no issue with the blevins at this time. no dizziness. no events called on telemetry. no new issues otherwise at this time. Objective Vital Signs Vital signs Vital Signs Date Time Temp Pulse Resp B/P Pulse Ox O2 Delivery O2 Flow Rate FiO2 11/15/16 15:06 98.1 77 18 137/62 94 Room Air Telemetry Rhythm: Sinus Rhythm Height (Feet): 5 Height (Inches): 5.00 Weight (Kilograms): 124.900 General General Appearance: Alert, Orientated x 3, Cooperative, No Acute Distress Eyes (Brief) Eyes: NOT FOUND: scleral icterus, trauma ENMT (Brief) Comments mucous membranes moist at this time. no clinical evidence of fluid overload at this time. Neck (Brief) Neck: FOUND: midline, NOT FOUND: JVD, nuchal rigidity, tracheal deviation Comments no photophobia. no clinical evidence of meningitis at this time. Respiratory (Brief) Respiratory: FOUND: clear all gonzalez, equal bilaterally, symmetrical, NOT FOUND : rales, spasm, tenderness, wheezes Comments no crackles. no respiratory distress. lung sounds heard in all lung gonzalez b/ l at this time. Cardiovascular (Brief) Comments stable from previous. no changes. clinically well perfused in all 4 extremities at this time. legs symmetrical and compartments soft b/l in LE's at this time. no new edema. Abdomen (Brief) Abdominal: FOUND: BS normo active x4, soft (X4.), NOT FOUND: distended, hepatosplenomegaly, pulsatile mass, tender (X4.) Comments no guarding, rebound, rigidity. (Brief) Comments no tenderness over bladder area. blevins looks ok. draining clear to ana paula colored urine. no obvious blood. Extremities (Brief) Extremity : Comments see above. Lymphatic (Brief) Lymphatic: NOT FOUND: lymphedema Musculoskeletal (Brief) Musculoskeletal: FOUND: extremities move equally, NOT FOUND: deformity, loss of motion Integumentary (Brief) Integumentary: FOUND: dry, pink, warm, NOT FOUND: lesions, rash Comments to uncovered areas. see yesterday's note for ulcer on bottom. patient states this is unchanged symptomatically from yesterday. Neurologic (Brief) Comments CN2-12 in tact. PERRLA. EOMI. no nystagmus. DTR's/sensation/motor/muscle strength normal and symmetrical b/l in extremities X4. stable from usual baseline at this time. Psychiatric (Brief) Psychiatric: FOUND: alert, attentive, normal affect, oriented Comments mentation and cognition at patient's usual baseline at this time. alert and oriented X3. Laboratory Laboratory Laboratory Tests 11/14/16 10:35 11/14/16 18:02 11/15/16 04:44 Laboratory Tests 11/14/16 10:36 11/15/16 04:44 EKG see below. Microbiology Microbiology Microbiology Date/Time Source Procedure Growth Status 11/14/16 10:30 Peripheral/Iv Start Blood Culture - Preliminary NO GROWTH AFTER 24 HOURS Resulted 11/14/16 10:21 Peripheral/Iv Start Blood Culture - Preliminary NO GROWTH AFTER 24 HOURS Resulted Radiology see below. Sepsis Diagnostic Criteria Sepsis Confirmed/Suspected Infection: Yes Additional Information Comments no new information otherwise at this time. Assessment & Plan Assessment acute hypotension, acute kidney injury, orthostatic hypotension and lightheadedness, likely from overdiuresis from patient taking more lasix than prescribed. improved. hypoglycemia, resolved T2DM CAD HTN hyperlipidemia history of repeat VTE's, chronically anticoagulation diabetic neuropathy pelayo grade 1 gluteal ulcer, improving -discharge to home later today. until then, continue outpatient, telemetry , routine vitals with call parameters, neuro checks q4hrs, oxygen as needed, I' s and O's, diabetic diet, up with assist, I's and O's, daily weights. neuro checks unremarkable. NIH stroke score continues to be zero and there's no clinical evidence of cerebrovascular event or cause to his symptoms. there was question of urinary retention in the ER as cause for the blevins but in speaking with Dr. Ruiz of the ER staff it appears this was only done secondary to protocol. patient isn't entirely sure as to why one was placed. he originally thought he was told he was holding on to urine but isn't sure. there's nothing documented from nursing in the EMR regarding any urinary retention. blevins was removed earlier today and a post- void residual was obtained and was zero. we will follow this as an outpatient at follow up. certainly to evidence of infection as cause of symptoms at it appear patient overdiuresed himself by taking more of the lasix than was prescribed. he was consulted at length on the importance of medication compliance. orthostatic vitals look good. no indication for further workup at this time and the rest can be done as outpatient. considerations if any urinary retention should be noted are adding flomax, urology consult, etc. but will hold on this until seen at follow up. we will hold meclazine to be on the safe side but it doesn't appear that it was contributing too much to his issues. ulcer on gluteal area has continued to heal well. will get home health to help with medications as outpatient and accept PT/OT's recommendations for front wheeled walker as well as transfer bench for bathing. -blood cultures X2 pending and negative so far. echocardiogram pending. -mg, phos, tsh, troponins X3, EKG's all unremarkable and stable. INR a bit supratheraputic this AM so pharmacy held dose today. given patient's INR's have been ok as outpatient we'll go back to his previous dose and schedule thereafter and recheck in 2 days (he checks these himself at home and has been very compliant with it. cbc's normal. cmp's with troponin down to 1.6 and BUN down accordingly as well. sugars and GLUBS in 200' s. PVR as above. -Dr. Peterson of cardiology consulted as is Dr. Still of endocrinology. both know the patient. pharmacy consulted for coumadin management. -discontinue IV fluids, hypoglycemia protocol and sliding scale humolog insulin. hold home gemfibrozil for now. -Dr. Still has helped clear up confusion as to what insulin patient's on and we're continuing patient's home humulin R U-500 pre-meal insulin. it was held briefly yesterday secondary to low blood sugars but no such issues since. restarted home coreg. change previous home lasix to every other day instead of daily. we may need to increase as an outpatient but will start here with the lasix. restart patient's home glucagon as outpatient. continue home tylenol prn, coumadin, oral B12, crestor. decrease home gabapentin to 600mg PO BID. BPPV -hold home meclazine as above. depression -continue home cymbalta osteoarthritis -continue holding home glucosamine COPD -continue home proair prn. all other chronic medical conditions stable and no changes to plan of care at this time. ppx -continue home coumadin and current SCD's for DVT ppx while in hospital. -continue diet above for GI ppx -FULL CODE -dispo patient's creatinine back down to baseline essentially. creatinine has been as high as 1.7 in clinic. discharge to home today. see discharge orders and summary for details. Code Status HAWA HAMLIN DO November 15, 2016 17:43
--- NOTE | 2016-11-15 18:17 | NUR ---
CALLED IN LASIX AND GABAPENTIN SCRIPTS TO [facility] PER PT REQUEST
--- NOTE | 2016-11-15 18:31 | NUR ---
DR ANDREWS NURSE CALLED AND ASKED THIS RN TO ORDER PT SHOWER CHAIR AND A WALKER. ASKED PT AND HE STATED HE ALREADY HAD A SHOWER CHAIR AND A WALKER AT HOME
--- NOTE | 2016-11-15 18:32 | NUR ---
DISCHARGE PT VERBALIZED UNDERSTANDING OF DISCHARGE INSTRUCTIONS. GIVEN DISCHARGE PACKET AND GIVEN HOME MEDS. INFORMED PT OF NEW MEDICATION ORDERS. PT VERBALIZED UNDERSTANDING. PT VERBALIZED UNDERSTANDING OF APPOINTMENTS AND TO MAKE HIS OWN APPOINTMENTS. LABEL PRINTER HELPED PT GET DRESSED AND GATHER BELONGINGS.
--- NOTE | 2016-11-15 19:00 | NUR ---
PT ESCORTED OUT VIA WHEELCHAIR TO FRONT WITH TO DRIVE HOME. BELONGINGS WITH PT. THANKED PT FOR CHOOSING [facility]
[2016-11-16] MEDS ORDERED: INSULIN REGULAR SQ SCH (07:30)
--- NOTE | 2016-11-16 07:40 | DSF ---
MODE OF ADMISSION Outpatient and observation. ATTENDING PHYSICIAN Dr. Gee of [facility] ADMITTING PHYSICIAN Dr. Gee of [facility] CONSULTING PHYSICIANS Dr. Carlin Peterson of Cardiology Dr. Rui Still of Endocrinology ANCILLARY SERVICES DURING THE STAY Physical therapy and occupational therapy saw the patient and he was evaluated. They recommended discharge with Home Health which has been set up as outpatient. They also recommended a transfer bench for bathing as well as a front-wheeled walker and these recommendations were taken. DISCHARGE DIAGNOSES 1. Acute hypotension, acute prerenal kidney injury, orthostatic hypotension, likely from overdiuresis from the patient taking more Lasix than was prescribed and medication noncompliance. 2. Type 2 diabetes. 3. Hypoglycemia x 1 episode which has resolved. This was asymptomatic. 4. 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 5. Murray grade 1 gluteal ulcer which is improving. 6. Benign paroxysmal positional vertigo. 7. Osteoarthritis. DISCHARGE MEDICINES. 1. Lasix 20 mg p.o. every other day. This is was changed from 20 mg p.o. daily. The patient was taking 40 mg p.o. daily although this was not prescribed. 2. Gabapentin 600 mg p.o. b.i.d. This was changed secondary to renal function. 4. Tylenol 1000 mg p.o. q.8h. p.r.n. pain 5. ProAir 90 mcg HFA, 1-2 puffs q.4h. p.r.n. shortness of breath/wheezing. 6. Coreg 25 mg p.o. b.i.d. 7. Vitamin D3 5000 units p.o. daily. 8. Vitamin B12 100 mcg p.o. daily. 9. Cymbalta 60 mg p.o. daily. 10. Glucagon emergency kit. 1 mg intramuscularly as needed. 11. Humulin R U-500 KwikPen. Take 175 units subcutaneously at breakfast, 125 units subcutaneously at lunch, 120 units subcutaneously at supper. 12. Crestor 20 mg p.o. daily. 13. Coumadin 5 mg p.o. daily on Sunday, Sunday, Sunday and then 2.5 mg on Sunday, Sunday, and Sunday. MEDICATIONS HELD OR STOPPED WHILE HERE 1. The patient's gemfibrozil,. 2. The patient's glucosamine. 3. The patient's meclizine. DISCHARGE ORDERS 1. Discharge now to home in stable and good condition. 2. Discharge diet is diabetic and as per prehospitalization. 3. Discharge activity is up as tolerated with front-wheeled walker. The patient will use tub/transfer bench for any bathing. Prescriptions were given for these as were instructions. FOLLOWUP APPOINTMENTS. 1. Appointment with Dr. Gee at [facility] in one week with a basic metabolic panel the day before and sent to him. 2. Appointment with Dr. Still of Endocrinology in 1-2 weeks. 3[address] Followup with Dr. Peterson of Cardiology in one month. Orders have been put in from the clinic for home health to assist with medications. They will also evaluate to see if they can assist with activities of daily living. In regards to the [facility] appointment: This was not applicable. EXPECTED SIGNS/SYMPTOMS The patient's dizziness, troubles walking, lightheadedness, vertigo should be resolved. There was question of urinary retention and urinary symptoms as listed below, but these were questionable. The patient was consulted on signs/symptoms of these and told to seek care immediately should they occur. The patient will return to care immediately if any dizziness, trouble walking, lightheadedness, urinary retention, changes in urination, vertigo should occur. Numbers given to contact Dr. Gee during business and after business hours. PAIN MANAGEMENT/TREATMENT If the patient has as any pain, he will let us know immediately. WOUND/INCISION CARE 1. Orders given to nursing to discontinue all lines, IVs and telemetry the patient didn't come in on before discharge. 2. This is otherwise not applicable. PATIENT INSTRUCTIONS 1. If any issues worsen and/or new ones occur, the patient will be seen immediately. 2. If the patient cannot afford medications or make appointments, he will let us know right away. 3. The patient will continue to take insulin and follow blood sugars as recommended by Dr. Still of Endocrinology as an outpatient and he will also follow with him. 4. The patient will continue to check home INRs as he has been except he will check an INR Sunday of this week and send it to us. For durable medical equipment, please see above for the transfer bench and front-wheeled walker. For any pending lab results, the patient will follow with primary care. PERTINENT LAB CBCs were normal x 2 while here. INR on admission was 2.62 and 3.34 on discharge. Coumadin was held the day of discharge. Sodiums, potassiums, chlorides, bicarbonates, anion gaps were unremarkable throughout. Creatinine was 2.5 on admission and trended down to 1.6 by discharge. BUN was 52 on admission and 41 by discharge. Blood sugars did get it get as low as the 40s x 1. This was asymptomatic. In general they were in the 200s while here. Calciums, magnesiums, phosphoruses were unremarkable while here. Liver functions tests were normal while here. Troponins x 3 were normal. Brain natriuretic peptide on admission was 129 and essentially normal. Otherwise complete metabolic panels were unremarkable. Lactic acid and procalcitonin on admission were normal as was the patient's TSH. Urinalysis on admission was normal. BLOOD CULTURES X 2 FROM ADMISSION ARE STILL OFFICIALLY PENDING but negative at the time of discharge. PERTINENT IMAGING AND OTHER TESTING DONE DURING THE STAY Chest x-ray PA and lateral as well as CT head without contrast on admission were normal. EKGs done the day of admission and the morning of discharge were at the patient's baseline and generally nonacute. Echocardiogram done on 11/14/[address] Peterson was essentially normal except for some mild concentric left ventricular hypertrophy. Ejection fraction was 65%. Pulmonary artery pressure was normal. HISTORY OF PRESENT ILLNESS AND HOSPITAL COURSE This is a pleasant but rather noncompliant 76-year-old male known to our clinic. Apparently, for an unknown period of time, the patient has been doubling up on his Lasix at home in an attempt to quell any lower extremity edema from his venous insufficiency which he has chronically. He was in his usual state of health until the day of admission. He was going to an appointment with Dr. Still of Endocrinology whom he sees regularly for his type 2 diabetes. When he got up after being called back to the office, he was immediately lightheaded and nearly syncopal. He fell to the left and caught himself on the wall. He was redirected to the emergency room for further workup. At that time his blood pressures were noted to be in the 60s-80s systolic. He was given copious amounts of IV normal saline which brought his blood pressures up and helped him feel better. Please see the above for the extensive imaging and other laboratory evaluation while here. The patient had no focal deficits and his [employer] [place] [employer] Stroke Score was zero throughout. After IV fluids and a stay overnight, he felt back to baseline and even a little better, he said. Blood pressures were stable throughout. There was no clinical evidence of fluid overload at the time of discharge and his vitals had been stable. Physical therapy and occupational therapy did see the patient and made the above recommendations which were taken. Dr. Peterson and Dr. Still as noted above were consulted. The general consensus was this was from the diuresis. The patient was instructed on appropriate use of medications and his Lasix was decreased to every other day as noted above for the time being. Other blood pressure medicines as noted above were gradually reinstituted. Please see above for discharge medications, followup and other orders. Given that the patient had no clinical evidence of a cerebrovascular cause or infectious cause for his symptoms, no further workup was obtained in this direction. This was supported by the fact that his symptoms resolved with the above-listed therapy. The patient does have a history of type 2 diabetes. He does see Dr. Still for this as noted. There was some question on what dose of insulin he was taking as an outpatient and Dr. Still was consulted to confirm this as these were in his records. He was maintained on his home dose which is as listed above on discharge and he will continue to follow as an outpatient with Dr. Still. These were generally stable while here. He had one blood sugar in the 40s which was asymptomatic and came up appropriately. His gemfibrozil was held for the time being given his kidney function. His other meds were continued as noted above. The patient has a history of benign paroxysmal positional vertigo. Meclizine does work for this. He was not taking it as needed as an outpatient but was taking it scheduled. There was some question of urinary retention on a postvoid residual from the emergency room while here. The patient was rather confused on this. In talking with Dr. Ruiz in the emergency room, it is noted that this was not put in secondary urinary retention but was put in as part of sepsis protocol. His Nielsen catheter was removed on the day of discharge and the patient was given a voiding trial. He voided about 250 ml of urine and his postvoid residual was 0. This will be further monitored as an outpatient and further considerations would be to add Flomax, check a PSA and send him to Urology, but this doesn't seem to be necessary at the moment. The patient does have a history of repeated venous thromboembolisms. He is chronically anticoagulated on Coumadin and his goal INR is from 2-3. His INR was generally stable while here. His INRs have generally been stable as an outpatient when he checks them himself. He sends these in weekly. His Coumadin was held on the day of discharge given the INR of about 3.3, however, given the stability of the patient's INR as an outpatient on the current dose we did maintain that dose and have him check an INR in two days. There was no clinical evidence of bleeding or venous thromboembolism while here. In regards to the patient's diabetic neuropathy. This was symptomatically stable while here. Given his renal issues, we did make his gabapentin b.i.d. instead of four times per day. The patient does have a healing Murray grade 1 gluteal pressure ulcer. This has been followed as an outpatient and he is using a donut pillow to alleviate pressure. He will continue doing this. This had improved from even just a few days previous and there was no clinical evidence of infection. This didn't seem to be contributing to any of the issues that got him admitted. In regards to the patient's history of vertigo. He has had this worked up with an MRI and MRA not more than a few months ago as an outpatient. He has some mild right carotid stenosis at 50% which does not require stenting per cardiology. His meclizine was not likely causing any issues with urinary retention but will be held temporarily for the time being just in case. We can evaluate this further as an outpatient. In regards to the patient's osteoarthritis. We're holding the patient's glucosamine for the time being. All other chronic medical conditions stable and no changes to plan of care at this time. For DVT prophylaxis the patient was maintained on his home Coumadin and provided SCDs while in the hospital. For GI prophylaxis the patient was maintained on a diabetic diet. The patient was a FULL CODE while here. Disposition: Discharge today in stable and good condition. This summary does not include all the details from the hospitalization and I will direct you to the medical record and previous notes and records for other details. FRANKY
[2016-11-16] MEDS ORDERED: POM WARFARIN 5 MG TABLET PO SCH (12:00)
== END 2016-11-15 19:00 | disposition home or self-care (01) ==
LOC: ED 10:05 → MED 12:38 → EDHOLD 12:38
PROVIDERS: ADMIT Internal Medicine; ATTEND Internal Medicine
DX: I95.1 Orthostatic hypotension (principal); N17.9 Acute kidney failure, unspecified; Z79.899 Other long term (current) drug therapy; Z91.14 Patient's other noncompliance with medication regimen; E11.649 Type 2 diabetes mellitus with hypoglycemia without coma; E11.42 Type 2 diabetes mellitus with diabetic polyneuropathy; E11.622 Type 2 diabetes mellitus with other skin ulcer; L98.411 Non-pressure chronic ulcer of buttock limited to breakdown of skin; Z79.01 Long term (current) use of anticoagulants; H81.10 Benign paroxysmal vertigo, unspecified ear; Z86.718 Personal history of other venous thrombosis and embolism; Z86.19 Personal history of other infectious and parasitic diseases; I25.2 Old myocardial infarction; Z86.711 Personal history of pulmonary embolism; F17.210 Nicotine dependence, cigarettes, uncomplicated; E78.2 Mixed hyperlipidemia; I12.9 Hypertensive chronic kidney disease with stage 1 through stage 4 chronic kidney disease, or unspecified chronic kidney disease; N18.9 Chronic kidney disease, unspecified; E66.01 Morbid (severe) obesity due to excess calories; Z68.42 Body mass index [BMI] 45.0-49.9, adult; Z79.4 Long term (current) use of insulin; Z98.61 Coronary angioplasty status; F32.9 Major depressive disorder, single episode, unspecified; J44.9 Chronic obstructive pulmonary disease, unspecified
CPT/HCPCS: 36415; 51702; 70450; 71010; 80053; 81003; 82948; 83605; 83735; 83880; 84100; 84145; 84443; 84484; 85025; 85610; 87040; 93005; 93306; 96361; 96365; 96372; 97116; 97162; 97165; 99284; A9270; G0378; G8978; G8979; G8980; G8987; G8988; J0696; J7030; J7050; 80048; 99218

== ENCOUNTER 2018-02-13 11:13 | Observation (INO) ==
[2018-02-13 12:43] VITALS: BMI 45.5
[2018-02-13] MEDS ORDERED: NS 1,000 ML IV ONE (12:56)
[2018-02-13] MEDS ORDERED: GLUCOSE ORAL GEL 40% 37.5gm PO PRN (12:58)
[2018-02-13] MEDS ORDERED: DEXTROSE 50% SYRINGE 50ml (1 AMP) IVP PRN (12:58)
[2018-02-13] MEDS ORDERED: NS 1,000 ML IV SCH ×2 (13:00→14:30)
--- NOTE | 2018-02-13 13:33 | XRay Report ---
INDICATION: cough PROCEDURE: CHEST 2-VIEWS UPRIGHT (PA & LAT) Encounter: Initial COMPARISON: Chest CT dated November 22, 2017 and chest x-ray dated March 02, 2017 FINDINGS: Chronic right hilar mass. Right upper lobe areas of linear scarring. Chronic mild basilar interstitial prominence. No new lobar consolidative pneumonia. No gross pleural effusion or pneumothorax. Heart size and pulmonary vascularity are stable. Prior CABG. Impression: Stable chest with a right hilar mass. No focal pneumonia or overt CHF. .
[2018-02-13] MEDS: ALBUTEROL/IPRATROPIUM 2.5mg-0.5mg/3ml NEB AEROSOL SCH ×2 (15:45→18:36)
[2018-02-13] MEDS ORDERED: MECLIZINE 25 MG TABLET PO PRN (15:53)
[2018-02-13] MEDS ORDERED: INSULIN REGULAR HUMAN SCH (16:00)
[2018-02-13] MEDS: BENZONATATE 200 MG CAPSULE PO SCH ×2 (16:37→22:23)
[2018-02-13] MEDS: CARVEDILOL 25 MG TABLET PO SCH (17:25)
[2018-02-13] MEDS: INSULIN REGULAR SQ SCH (17:26)
--- NOTE | 2018-02-13 20:14 | History & Physical Report ---
History of Present Illness Date: 02/13/18 HPI: patient is a pleasant 77yo male known to our clinic. he has a history of T2DM, baseline chronic kidney disease and morbid obesity. he was in his usual state of health until about one week ago. started with runny nose and sinus congestion and developed into productive cough with yellow sputum. cough can be rather intense. was seen in clinic by [facility] and put on augmentin and otherwise managed conservatively but symptoms persisted. he has gradually had worsening appetite and hasn't been eating or drinking well. he has developed several episodes of normal appearing diarrhea over the last few days as well. patient had a creatinine in clinic today of 2.3 and this is considerably above his baseline. on top of this he was clinically dehydrated and very weak. based on the above it was decided to admit for IV rehydration and observation. vitals were stable in clinic today. EKG today in clinic demonstrated diffuse T wave inversions in multiple vascular beds likely secondary to stress/demand. recommended patient be sent by EMS and patient refused so he came by private vehicle. currently patient is feeling weak but otherwise stable symptomatically as well. he has felt feverish but doesn't know what his temperature has been. no recent travel, camping, sick exposures, leblanc exposures, skin changes, new rashes. no skin/soft tissue infection symptoms. no ulcers or lesions on feet and on gluteal cleft and this is noted from history and on physical exam today. has had some moderate chills and significant generalized weakness. patient's has to help him get out of his chair and walk anywhere. no meningeal symptoms, photophobia, neck rigidity, encephalopathic changes. no falls, trauma, injuries , head trauma. no dizziness, vertigo, syncope, near-syncope. no new or changing numbness/weakness/tingling anywhere. no vision changes, ear pain, ear drainage, vertigo, tinnitus, sinus pain, sore throat. still has moderate sinus pressure/congestion. no skin changes or new rashes as noted. no dysuria, hematuria, urinary frequency, flank pain, nocturia, urinary/bowel incontinance, urinary retention, polyuria, oliguria. due to not eating patient has had a couple of low blood sugars in 50's yesterday but none today. he's a bit sweaty when this happens but otherwise asymptomatic. no boggy/inflammed/swollen/ painful focal joints or muscle groups b/l X4. no pallor or cyanosis of extremities b/l X4. no chest pain, SOA, orthopnea, PND, new edema, leg asymmetry, changes in exertional tolerance, palpitations. no hemoptysis. does have occasional yellow sputum production as noted. no cranial nerve symptoms/ deficits, headaches, temporal artery tenderness/inflammation. diarrhea bout happening every 2 to 3 hours or so and watery/brown. ROS negative for food borne illness and risk factors thereof. no mucous in stools. no abdominal pain , nausea, vomiting, constipation, bloody/black stools, melena, BRBPR, dysphagia , other GI warning symptoms. denies homicidal/suicidal ideations. no altered mentation, obtundations, confusion, psychosis symptoms, manic symptoms. no history of bipolar or psychotic disorders. no changes in cognition or alertness. present for most of encounter today. no new issues otherwise at this time. Review of Systems - Constitutional Constitutional: Present: as per HPI - EENMT Eyes: Present: as per HPI Ears: Present: as per HPI Balance: Present: as per HPI Nose: Present: as per HPI Mouth/Throat: Present: as per HPI - Cardiovascular Cardiovascular: Present: as per HPI Vascular: Present: see HPI - Respiratory Respiratory: Present: as per HPI - Gastrointestinal Gastrointestinal: Present: as per HPI - Genitourinary Genitourinary: Present: as per HPI - Musculoskeletal Musculoskeletal: Present: as per HPI - Integumentary/Breasts Integumentary: Present: as per HPI - Neurological Neurological: Present: as per HPI - Psychiatric Psychiatric: Present: as per HPI - Endocrine Endocrine: Present: as per HPI - Hematologic/Lymphatic Hematologic/Lymphatic: Present: as per HPI - Allergic/Immunologic Allergic/Immunologic: Present: as per HPI Past Medical History Medical History: Medical History (Last Reviewed 01/30/18 @ 08:38 by Rui Still MD) Diabetes mellitus type 2, uncontrolled, without complications (Chronic) Onset Date: ~1998 Poor control, with sugars falling overnight. Diabetic peripheral neuropathy associated with type 2 diabetes mellitus (Chronic ) Severe Callus of foot (Resolved) Healed. Morbid obesity with BMI of 45.0-49.9, adult (Chronic) Better. Blood clot in vein Carcinoid tumor of lung Vertigo Medical History Updates: -morbid obesity. -T2DM. -gout. -COPD. -carcinoid tumor of lung. -hyperlipidemia. -HTN. -depression. -BPPV. -BPH. -history of repeat DVT's and chronically anticoagulated on warfarin. -see above. Surgical History: Bypas surg x5 2000, Hernia repaired November 1958, Family History: Family History (Last Reviewed 01/30/18 @ 08:38 by Rui Still MD) Father Cancer of colon Gallbladder attack x2 FH: heart attack x5 Family History Updates: see above. Family History: As Above - Social History Smoking status: Never smoker Social history: -no tobacco use -no significant alcohol use -no illicit substance use. -lives at home independently with . Medications Home Medications Medication Instructions Recorded Confirmed Type Carvedilol [Coreg] 25 mg PO BIDWM #0 03/24/09 02/13/18 History Duloxetine HCl [Cymbalta] 60 mg PO DAILY #0 03/24/09 02/13/18 History Cyanocobalamin (B-12) [Vit. B-12] 100 mcg PO DAILY #0 08/25/16 02/13/18 History Cholecalciferol (Vitamin D3) 5,000 unit PO DAILY #0 11/14/16 02/13/18 History [Vitamin D3] Glucagon,Human Recombinant 1 mg IM PRN PRN #0 11/14/16 02/13/18 History [Glucagon Emergency Kit] Telmisartan/Hctz 80/25 [Micardis 1 tab PO DAILY 12/07/16 02/13/18 History HCT 80-25 MG TAB] Meclizine [Antivert] 25 mg PO BID PRN 03/02/17 02/13/18 History Warfarin Sodium 2.5 mg PO SUTUTHSA 03/02/17 02/13/18 History Acetaminophen [Acetaminophen Extra 1,000 mg PO Q6H PRN 03/23/17 02/13/18 History Strength] Gabapentin [Neurontin] 600 mg PO BID 03/23/17 02/13/18 History Warfarin Sodium 5 mg PO MOWEFR 03/23/17 02/13/18 History Flomax (tamsulosin) 0.4 mg capsule 0.4 mg PO DAILY 06/07/17 02/13/18 History Advair Diskus (Fluticasone 1 puff INH BID 12/06/17 02/13/18 History 100mcg-salmeterol 50 mcg/dose) blistr powder Crestor (rosuvastatin) 20 mg tablet 40 mg PO HS #0 tab 12/06/17 02/13/18 History Zyloprim (Allopurinol) 100 mg 200 mg PO HS tab 12/06/17 02/13/18 History tablet ondansetron 4 mg disintegrating 4 mg PO Q8H PRN tab 12/06/17 02/13/18 History tablet insulin regular human See Label Instructions .ROUTE 02/06/18 02/13/18 Rx U-500"concentrate" 500 unit/mL .COMPLEX #40 ml subcutaneous soln Albuterol Sulfate [Proair Hfa] 1 puff INH Q4H PRN 02/13/18 02/13/18 History Allopurinol [Zyloprim] 300 mg PO DAILY 02/13/18 02/13/18 History Amoxicillin/Potassium Clav 1 each PO BID 02/13/18 02/13/18 History [Amox-Clav 875-125 mg Tablet] Benzonatate 200 mg PO TID 02/13/18 02/13/18 History Fenofibrate [Lofibra] 160 mg PO DAILY 02/13/18 02/13/18 History Furosemide [Lasix] 20 mg PO Q48H 02/13/18 02/13/18 History [place]-3 Acid Ethyl Esters [Lovaza] 1 cap PO BID 02/13/18 02/13/18 History Allergies Allergy/AdvReac Type Severity Reaction Status Date / Time pregabalin Allergy Severe UNKNOWN Verified 01/30/18 08:31 liraglutide Allergy Unknown Verified 01/30/18 08:31 Exam Vital Signs: Temperature 98.4 F 02/13/18 15:35 Pulse Rate 110 H 02/13/18 16:56 Respiratory Rate 16 02/13/18 18:37 Blood Pressure 140/73 H 02/13/18 15:35 Pulse Oximetry 94 02/13/18 18:37 Telemetry Rhythm: Sinus Rhythm (on EKG. ) Height/Weight/BMI: Height 1.65 m Weight 124 kg Body Mass Index 45.5 - Constitutional Present: no acute distress (but weak.), morbidly obese, cooperative - Routine HEENT Exam Head: Present: normocephalic, atraumatic Eye: Present: EOMI, PERRL Comments: TM's clear b/l at this time. no mastoid tenderness b/l at this time. nares patent and dajuan normal b/l. no sinus pain to palpation b/l at this time. throat clear. no eschars or clinical evidence of mucor throughout ENT and oropharyngeal exam at this time. no clinical evidence of lisa, depression, anxiety, altered mentation, obtundation, confusion, psychosis, delerium, neck rigidity, photophobia, meningitis at this time. denies homicidal/suicidal ideations. CN2-12 in tact. sensation/motor/muscle strength/DTR's at patient usual baseline in extremities b/l X4. PERRLA. EOMI. no nystagmus. consensual reflex in tact. no clinical evidence of upper motor neuron lesions at this time. affect and cognition otherwise unchanged from previous baseline. no changes neurologically otherwise from previous baseline. gait slower than usual but otherwise unchanged from previous baseline. his does need to help him get up out of chair secondary to weakness. cerebellar, vestibular, propioceptive function conserved at this time. no lymphadenopathy in all supraclavicular/anterior cervical/posterior cervical/submental/submandibular/ auricular/occipital gonzalez b/l at this time. no face swelling. no periorbital edema. no conjunctival injection b/l. - Routine Neck Exam Present: trachea midline Comments: no thyromegaly to palpation. see above. no JVD. - Routine Chest/Breast/Axilla Exam Comments: no chest pain to palpation. - Routine Respiratory Exam Comments: mild bibasilar wheezes to end expiration at this time. moving air well overall. lung sounds heard in all lung gonzalez b/l at this time. otherwise LCTAB. no respiratory distress, retractions, accessory muscle use, stridor, airway compromise b/l at this time. no crackles or rales b/l. no other wheezes other than as is noted. - Routine Cardiovascular Exam Present: RRR Comments: no new or changing murmurs. hRRR at this time. no clinical evidence of decompensated heart failure at this time. - Routine Abdominal Exam Present: soft (X4.), normoactive bowel sounds (X4.), non distended (X4.), non tender (X4.) Comments: no rebound, guarding, rigidity. no ascites, jaundice, distension. no clinical evidence of acute abdomen at this time. no organomegally but this is confounded some by obese abdomen. - Routine Exam Comments: no back pain. no clinical evidence of acute, new, changing, worsening neurovascular or musculoskeletal compromise in extremities b/l X4. no flank pain b/l at this time. no clinical evidence of upper or lower UTI at this time. - Routine Extremities Exam Comments: no new edema. legs and arms symmetrical and compartments soft in extremities b/ l X4. no pallor or cyanosis of extremities b/l X4. no boggy/inflammed/swollen/ painful focal joints or muscle groups b/l X4. clinically well perfused in all 4 extremities b/l at this time. see above HPI. no clinical evidence of skin/ soft tissue infections. no clinical evidence of dermatitis/cellulitis. no skin changes from previous otherwise to uncovered areas. - Routine Back/Spine/Pelvis Exam Comments: no back pain. - Routine Skin Exam Present: intact Comments: see above. mucous membranes dry at this time. - Routine Neurological Exam see above. no tremors or muscle rigidity. - Routine Psychiatric Exam Comments: see above. denies homicidal/suicidal ideations. Results - Labs CBC & Chem 7: 02/13/18 13:06 02/13/18 13:12 Microbiology Results: Microbiology 02/13/18 13:12 Peripheral/Iv Start Blood Culture - Preliminary Culture Initiated - Results Pending 02/13/18 13:05 Peripheral/Iv Start Blood Culture - Preliminary Culture Initiated - Results Pending Assessment and Plan Assessment and Plan: acute kidney injury, likely pre-renal acute bronchitis and mild COPD exacerbation diarrhea, likely related to augmentin diffuse T wave inversions on EKG today, likely related to stress/demand dehydration generalized weakness secondary to the above T2DM chronic COPD HTN CAD gout baseline chronic kidney disease secondary to the above. history of repeat DVT's on chronic coumadin. INR goal 2.0 to 3.0. hyperlipidemia morbid obesity -admit to outpatient, routine vitals with call parameters, oxygen as needed , telemetry, I's and O's, daily weights, up with assist only. PT/OT consult. -cbc, cmp, tsh, UA, FeUREA, mg, phos, bnp, troponins X3 with call parameters , sputum culture and gram stain, blood cx X2, follow lactic acids, procalcitonin , stool culture, stool WBC, stool PCR, follow INR's daily, coag panel, respiratory PCR panel, check GLUBS, uric acid. -cbc, cmp, INR, troponin in the AM. -CXR now. repeat EKG in the AM. -duonebs q6hrs scheduled, IV normal saline 1 liter bolus with 50ml/hr thereafter, tessalon perles scheduled. start PO prednisone taper pending above. start incentive spirometry. continue home coreg, crestor, lovaza. may restart home micardis, HCTZ, fenofibrate depending on the above. continue home humilin U insulin with meals. start hypoglycemia protocol. continue advair, vitamin D, B12, coumadin. may restart home allopurinol pending the above. -hold home lasix. hold augmentin as no indication for antibiotics yet from history and on physical exam. -further management pending the above. depression -continue home cymbalta chronic BPPV -continue home meclazine prn BPH -continue home flomax all other chronic medication conditions stable and no changes to plan of care at this time. ppx -continue coumadin as above for DVT ppx. -PO diet above for GI ppx. -FULL CODE -dispo dependent on the above. DVT Prophylaxis: Coumadin GI Prophylaxis: other (PO diet.) Resuscitation Status: Full Code - Time spent with patient Time with patient PN: 50 minutes - Physician Narrative Narrative: Date: 02/13/18 Time: 2000 Sepsis Assessment - Evaluation SIRS Criteria: RR > 20 Severe Sepsis: Creatinine >2.0 mg/dL or 0.5 mg/dL above baseline
[2018-02-13] MEDS ORDERED: ALLOPURINOL 100 MG TABLET PO SCH (21:00)
[2018-02-13] MEDS ORDERED: ROSUVASTATIN 20 MG TABLET PO SCH (21:00)
[2018-02-13] MEDS ORDERED: TAMSULOSIN 0.4 MG CAPSULE PO SCH (21:00)
[2018-02-13] MEDS: OMEGA-3 ACID ESTERS 1 GM CAPSULE PO SCH (22:23)
[2018-02-13] MEDS: GABAPENTIN 600 MG TABLET PO SCH (22:28)
[2018-02-14] MEDS: ALBUTEROL/IPRATROPIUM 2.5mg-0.5mg/3ml NEB AEROSOL SCH ×3 (07:42→15:52)
[2018-02-14 07:46] VITALS: RESP 18
[2018-02-14] MEDS ORDERED: INSULIN REGULAR SQ SCH ×2 (08:00→12:00)
[2018-02-14] MEDS ORDERED: PredniSONE 10 MG TABLET PO SCH (08:00)
[2018-02-14] MEDS: GABAPENTIN 600 MG TABLET PO SCH (08:06)
[2018-02-14] MEDS: CARVEDILOL 25 MG TABLET PO SCH ×2 (08:06→17:32)
[2018-02-14] MEDS: OMEGA-3 ACID ESTERS 1 GM CAPSULE PO SCH (08:06)
[2018-02-14] MEDS: BENZONATATE 200 MG CAPSULE PO SCH ×2 (08:06→17:32)
[2018-02-14] MEDS ORDERED: TELMISARTAN PO SCH (09:00)
[2018-02-14] MEDS ORDERED: CYANOCOBALAMIN (B-12) 100mcg TABLET PO SCH (09:00)
[2018-02-14] MEDS ORDERED: HCTZ PO SCH (09:00)
[2018-02-14] MEDS ORDERED: DULOXETINE 60 MG CAPSULE PO SCH (09:00)
[2018-02-14] MEDS ORDERED: FENOFIBRATE 160 MG TABLET PO SCH (09:00)
[2018-02-14] MEDS ORDERED: ALLOPURINOL 300 MG TABLET PO SCH (09:00)
[2018-02-14] MEDS ORDERED: TELMISARTAN 40 MG TABLET PO SCH (09:00)
[2018-02-14] MEDS ORDERED: WARFARIN 5 MG TABLET PO SCH (12:00)
--- NOTE | 2018-02-14 13:30 | Progress Note ---
- Date 02/14/18 Subjective: no acute event overnight. no events on telemetry called overnight. patient does feel markedly better. cough resolved. no chest pain, SOA, orthopnea, PND , new edema, leg asymmetry, issues with exertional tolerance, palpitations. no hemoptysis or sputum production. weakness from admission is about 85% improved. no falls, trauma, injuries. ambulated in halls well today. PT/OT recommended shower chair but otherwise no other issues. home health was recommended and patient refused. no diarrhea since admission and this has resolved. no abdominal pain, GERD symptoms, nausea, vomiting, diarrhea, constipation, bloody/black stools, hematemesis, coffee ground emesis, melena, BRBPR, dysphagia, GI warning symptoms. no night sweats or other constitutional symptoms. no fevers, chills, body aches, fatigue, weakness now. no ear pain, sinus pain, sore throat, runny nose. no orthostatic symptoms. no dizziness, syncope, near-syncope. no boggy/inflammed/swollen/painful focal joints or muscle groups b/l X4. no pallor or cyanosis of extremities b/l X4. no numbness /weakness/tingling/pain in extremities. no mood changes, depression symptoms, homicidal/suicidal ideations, altered mentation, obtundation, confusion, delerium symptoms at all. no dysuria, hematuria, urinary frequency, flank pain , nocturia, urinary/bowel incontinance, urianry retention, polyuria, oliguria, other urinary symptoms. no skin changes or new rashes. no skin/soft tissue infection symptoms. no meningeal symptoms, photophobia, neck rigidity. no encephalopathic symptoms. present for part of encounter today. no new issues otherwise at this time. Objective Vital signs: Temperature 98.2 F 02/14/18 07:00 Pulse Rate 90 02/14/18 09:39 Respiratory Rate 18 02/14/18 11:07 Blood Pressure 130/76 02/14/18 07:00 Pulse Oximetry 96 02/14/18 11:07 Rhythm: Normal Sinus Rhythm Height/Weight/BMI: Height 1.65 m Weight 124.1 kg Body Mass Index 45.5 - Constitutional Present: no acute distress, morbidly obese, cooperative. Absent: combative, agitated, somnolent, obtunded - Routine HEENT Exam Head: Present: normocephalic, atraumatic ENT: Present: mucous membranes moist Comments: otherwise unchanged from previous. - Routine Respiratory Exam Present: CTA bilaterally. Absent: accessory muscle use, patient mechanically ventilated, dyspnea, decreased breath sounds, prolonged expiratory phase, rales , respiratory distress, rhonchi, stridor, wheezes, crackles, distant breath sounds, diminished air movement Comments: all the above noted in lungs bilaterally in all gonzalez. no stridor bilaterally. - Routine Cardiovascular Exam Present: RRR Comments: no new or changing murmurs. no clinical evidence of decompensated heart failure at this time. no new edema. legs and arms symmetrical and compartments soft in extremities b/l X4 at this time. clinically well perfused in all 4 extremities b/l X4. no pallor or cyanosis of extremities b/l X4. no boggy/inflammed/swollen/painful focal joints or muscle groups b/l X4. no skin changes from previous otherwise to uncovered areas. no clinical evidence of skin/soft tissue infections in extremities b/l X4 or otherwise. - Routine Abdominal Exam Present: soft (X4.), normoactive bowel sounds (X4.), non distended (X4.), non tender (X4.). Absent: tenderness (X4.), distended (X4.), rebound, guarding, firm, rigid, organomegaly, mass Comments: no ascites, jaundice, distension. - Routine Extremities Exam Comments: see above. - Routine Back/Spine/Pelvis Exam Comments: no back pain. no clinical evidence of upper or lower UTI at this time. no clinical evidence of meningitis, neck rigidity, photophobia, encephalopathy at this time. denies homicidal/suicidal ideations. no changes neurologically from previous baseline to cranial nerves and in extremities b/l X4. no clinical evidence of lisa, depression, anxiety, altered mentation, obtundations , confusion, psychosis, delerium at this time. no changes neurologically otherwise from previous baseline at this time. - Routine Musculoskeletal Exam Musculoskeletal: Present: other (see above. ) - Routine Skin Exam Present: intact Comments: see above. - Routine Psychiatric Exam Present: normal affect, normal thought process, cooperative, good insight, good judgment. Absent: suicidal ideation, homicidal ideation, auditory hallucinations, visual hallucinations, tactile hallucinations, depressed, anxious, agitated, paranoid, manic Comments: see above as well. Results - Labs CBC & Chem 7: 02/14/18 04:20 02/14/18 04:20 Microbiology Results: Microbiology 02/13/18 13:12 Peripheral/Iv Start Blood Culture - Preliminary Culture Initiated - Results Pending 02/13/18 13:05 Peripheral/Iv Start Blood Culture - Preliminary Culture Initiated - Results Pending Assessment and Plan Assessment and Plan: acute pre-renal kidney injury, resolved. creatinine back to baseline from 2.4 on admission (in clinic) acute bronchitis and mild COPD exacerbation, resolving diarrhea related to augmentin, resolved diffuse T wave inversions on EKG today, likely related to stress/demand dehydration, resolved mild leukocytosis secondary to bronchitis noted above. generalized weakness secondary to the above, resolved T2DM chronic COPD HTN mild microscopic hematuria CAD gout baseline chronic kidney disease secondary to the above. history of repeat DVT's on chronic coumadin. INR goal 2.0 to 3.0. hyperlipidemia morbid obesity diabetic neuropathy -continue outpatient, routine vitals with call parameters, oxygen as needed , telemetry, I's and O's, daily weights, up with assist only while admitted. PT /OT consult as is noted above. patient markedly improved clinically. -cbc's with mild leukocytosis and no bandemia and otherwise unremarkable. cmp with cre down to 1.3 now and predictably elevated blood sugars and otherwise unremarkable. tsh normal. UA with trace blood and otherwise unremarkable and this can be followed as outpatient. FeUrea not clinically relevent given resolved GREG. mg, phos, bnp, troponins X3, respiratory PCR panel unremarkable. INR's and coags in range. lactic acids unremarkable. -blood cultures X2 negative so far but still officially pending. couldn't get stool culture/wbc/pcr as diarrhea has resolved. couldn't get sputum culture and gram stain as cough resolved. procalcitonin normal. GLUBS ranging from 90 's to 300's so will not alter insulin right now. CXR unremarkable. EKG today with T waves that appear to have near-normalized from previous in precordial leads and otherwise unremarkable and non-acute. uric acid still about 7.6 but can follow this as an outpatient. -while inpatient will continue duonebs q6 but will convert back to albuterol inhaler prn by discharge. IV fluids stopped now. continue tessalon perles as outpatient. continue low dose prednisone taper while here and as outpatient. continue incentive spirometry while here. continue home coreg, crestor, lovaza, micardis, HCTZ, fenofibrate, humilin U insulin before meals. continue hypoglycemia protocol here and while at home (he already had this written for). patient will check blood sugars BID and call parameters given, especially for while on prednisone at home. continue home advair, vitamin D, B12, continue home allopurinol. restart home lasix. augmentin discontinued and doxycycline PO X10 days put in it's place. continue current home coumadin. continue home zofran prn for now. continue home gabapentin. depression -continue home cymbalta chronic BPPV -continue home meclazine prn BPH -continue home flomax all other chronic medication conditions stable and no changes to plan of care at this time. ppx -continue chronic coumadin as above for DVT ppx. -PO diet above for GI ppx. -FULL CODE -dispo discharge to home today. recommended home health today and patient refuses. see discharge orders and summary for further details. DVT Prophylaxis: Coumadin GI Prophylaxis: other (PO diet.) Resuscitation Status: Full Code - Time spent with patient Time with patient PN: 25 minutes - Physician Narrative Narrative: Date: 02/14/18 Time: 1329 Sepsis Assessment - Evaluation Severe Sepsis: none seen
[2018-02-14 15:26] VITALS: BP 145/71; PULSE 68; TEMP 98.1
[2018-02-14 15:56] VITALS: O2SAT 96
[2018-02-14] MEDS: INSULIN REGULAR SQ SCH (17:32)
[2018-02-15] MEDS ORDERED: FENOFIBRATE 160 MG TABLET PO SCH (08:00)
[2018-02-15] MEDS ORDERED: WARFARIN 5 MG TABLET PO SCH (12:00)
--- NOTE | 2018-02-16 09:45 | Discharge Summary ---
DATE OF ADMISSION 02/13/2018 DATE OF DISCHARGE 02/14/2018 MODE OF ADMISSION Outpatient. ATTENDING PHYSICIAN Dr. Gerard Chakraborty [facility] ADMITT[facility]YSIC[facility] CONSULTING PHYSICIAN None. ANCILLARY SERVICES Physical Therapy and Occupational Therapy saw the patient. Their only recommendations were a shower chair and these recommendations were taken and a scrip was given with instructions for the patient to use this at any time while bathing. Home health was recommended to the patient but he refused. DISCHARGE DIAGNOSES 1. Acute prerenal kidney injury which has resolved. 2. Acute bronchitis and COPD exacerbation which is resolving. 3. Diarrhea related to Augmentin which has resolved. 4. Diffuse T-wave inversions on EKG, likely related to myocardial stress/ demand. 5. Dehydration which is resolved. 6. Mild leukocytosis secondary to the above. 7. Generalized weakness secondary to the above. 8. Type 2 diabetes. 9. Mild microscopic hematuria. 10. Gout. 11. History of repeated deep vein thromboses and patient on chronic anticoagulation with Coumadin with goal INR of 2.0 to 3.0. 12. Morbid obesity. DISCHARGE CONDITION Patient is discharged to home in stable and good condition. DISCHARGE MEDICATIONS 1. Doxycycline, one tablet p.o. b.i.d. x 10 days. This replaces the Augmentin. It is for his COPD exacerbation/bronchitis. 2. The patient will be maintained on his home insulin regimen of regular U- 500. The patient will take 135 units with lunch, 180 units with breakfast, 115 units with supper. This was not changed. 3. The patient on a prednisone taper of 20 mg p.o. daily x 3 days, then 10 mg p.o. daily x 3 days, then stop. 4. Vitamin D3, 5000 units p.o. daily. 5. Coumadin 2.5 mg p.o. daily on Sunday, Sunday, , Sunday as well as 5 mg p.o. daily on Sunday, Sunday and Sunday. 6. Gabapentin 600 mg p.o. b.i.d. 7. Allopurinol 300 mg in the morning and 200 mg in the evening. 8. Lovaza, 1 g p.o. b.i.d. 9. Lasix 20 mg every two days orally. 10. Fenofibrate 160 mg p.o. daily. 11. Coreg 25 mg p.o. b.i.d. 12. Cymbalta 60 mg p.o. daily 13. Vitamin B12 100 mcg p.o. daily. 14. The patient will be continued on his glucagon emergency kit. 15. Tessalon Perles 200 mg p.o. t.i.d. to finish out the next few days left on his course. 16. ProAir HFA, 1 puff inhaled q.4h. p.r.n. shortness of air/wheezing. 17. Flomax 0.4 mg p.o. daily. 18. Crestor 40 mg p.o. q.h.s. 19. Zofran ODT 4 mg orally q.8h. p.r.n. nausea/vomiting. 20. Telmisartan/hydrochlorothiazide 80/25 (also known as Micardis HCT 80/25). Take one tablet p.o. daily. 21. Advair 100/50, 1 puff b.i.d. DISCHARGE DIET Diabetic, cardiac. The patient will use a front-wheeled walker for the next few days after discharge to help increase his strength. As noted above, a scrip was given for a shower chair and the patient instructed to use this at all times while bathing. He did verbalize understanding of all this. WOUND CARE The patient was instructed that if any of his IV sites become red, painful, irritated, swollen or start draining he will let us know immediately. The patient was instructed to watch for increase in bleeding due to being on a blood thinner as well. ADDITIONAL INSTRUCTIONS 1. Patient was instructed that if any issues worsen and/or new ones occur he will be seen immediately. 2. The patient was instructed to continue the same dose as scheduled of Coumadin and recheck his INRs with his home INR machine as he has been. He is very compliant with this and does a good job and INRs have generally been in range. 3. Patient instructed to check his blood sugars before meals and at bedtime and he will keep a log. Patient instructed to call provider for any blood sugars above 250 and/or less than 80. The patient was told this is especially important while on the steroids. 4. Patient was reconsulted again on the shower chair and front-wheeled walker instructions noted above. EXPECTED SIGNS/SYMPTOMS Patient instructed that his weakness, cough, diarrhea should continue to improve and eventually resolve. These were essentially resolved by discharge anyway. NUMBERS GIVEN The patient was further instructed to notify physician and return to care immediately if any fevers, chills, abdominal pain, chest pain, shortness of breath should occur. Patient instructed that if diarrhea occurs again, then he should be seen right then. The patient told that if the weakness worsens and stops improving that he will be seen right then as well. The patient will follow up with provider for pending labs and testing for which there are none currently. KANQUIT This is not applicable as the patient does not smoke or use tobacco currently. FOLLOWUP The patient will follow up with Dr. Gee in one week with a CBC and CMP done the day before and sent to him. PERTINENT LABORATORY RESULTS The patient's white blood cell count was in the low 12s while here. Hemoglobin and hematocrit were generally unremarkable as were platelets. The rest of the differential was generally unremarkable. Given the patient's profound clinical improvement it was still decided to discharge the patient on the day of discharge and follow a CBC as an outpatient. The patient's INRs were therapeutic while here and both of them were between 2 and 3. PTT on admission was just a little above normal at 37.6. In regards to chemistries, the patient's sodiums, potassiums, chlorides, acid base status were all unremarkable. Creatinine on admission in the clinic was about 2.4. On the day of discharge it was 1.3. EGFRs were in the 50s by discharge. Blood sugars ranged anywhere from the 80s to 300s while here. He did not have any low blood sugars or low blood sugar symptoms. Uric acid was 7.6 while here and will be followed further as an outpatient in hopes that this improves as his kidney function does. Liver functions tests were normal while here throughout as were troponins x 3. Brain atretic peptide on admission was unremarkable. Lactic acids were normal here as was the patient's procalcitonin and TSH. Urinalysis on admission showed a trace amount of protein and 1+ blood. Fractional excretion of urea was not clinically applicable here given the patient's improvement in creatinine. Respiratory PCR panel was unremarkable. The urine random urea nitrogen is still officially pending. As noted, this is not likely to be clinically significant given the patient's resolution of the elevated creatinine with the current therapy. PERTINENT MICROBIOLOGY WHILE HERE The patient's blood cultures x 2 are negative to date. PERTINENT REPORTS Chest x-ray PA and lateral on admission was generally unremarkable, showing only the mild chronic changes he has had for quite a while and no issues. EKG done the day of admission in clinic showed diffuse T-wave inversions in multiple vascular beds. He had these in the lateral leads chronically and the ones in the precordials were new. This was followed the next day after therapy and these did improve. These will be followed and discussed further as an outpatient. The patient does see Cardiology as an outpatient. As noted, repeat EKG was improved. The patient was chest pain-free throughout and had no cardiovascular symptomatology. PERTINENT PHYSICAL EXAM FINDINGS WHILE HERE On admission the patient was noted to have some modest bibasilar end expiratory wheezes which had resolved by discharge. The patient noted at least a 75% resolution of his fatigue after therapy and his other symptoms that he presented with on admission had resolved. HISTORY OF PRESENT ILLNESS/HOSPITAL COURSE This is a pleasant 77-year-old male known to our clinic. He has a history of type 2 diabetes and baseline chronic kidney disease as well as morbid obesity. He was in his usual state of health until about one week ago. At that time he started with runny nose and sinus congestion and this developed into a productive cough with yellow sputum. The cough was rather intense. He was seen in our clinic by a separate provider and put on Augmentin and otherwise managed conservatively but his symptoms persisted. He gradually had worsening appetite and had not been eating or drinking well previous to admission. He had developed several episodes of normal-appearing diarrhea over the days previous to admission since starting the Augmentin. Upon routine labs the patient was noted to have a creatinine up to about 2.4 which was considerably above his baseline of about 1.4 to 1.5. On top of this he was quite dehydrated and rather weak. Based on the above it was opted to admit the patient for IV rehydration and observation. The vitals were generally stable throughout. The patient was put on DuoNebs as well as oral prednisone, Tessalon Perles and incentive spirometry. His Augmentin was changed to doxycycline by discharge. An extensive imaging and laboratory evaluation was undertaken as noted above. Chest x-ray was benign as was the patient's respiratory PCR. Blood culture and sepsis workup was unremarkable and there was no evidence of sepsis in general throughout. By discharge the patient was markedly better in regards to his cough and upper respiratory tract infection. He notes, in fact, that the symptoms had completely resolved. He was converted to the above medications on discharge. He will follow up in the clinic as noted above. After IV fluids the patient's creatinine dropped to 1.3 which is actually better than his usual baseline. He will continue to follow with his electronic instrument trades worker as an outpatient as well. In regards to diarrhea from the Augmentin, once the Augmentin was stopped his diarrhea resolved and he had no problems with this throughout the rest of the stay. A stool PCR, white blood cell and culture were ordered but could not be obtained as the diarrhea resolved. He had no other abdominal symptoms or issues during this stay. This will be followed further as an outpatient. In regards to that the diffuse T-wave inversions on the EKG on admission, this was likely related to demand from his acute illness. His troponins were negative any he never had any cardiovascular symptoms otherwise. We will follow this further as an outpatient and the patient will continue to follow with appliance mechanic as scheduled. In regards to the patient's dehydration, this resolved with IV fluids. In regards to the patient's mild leukocytosis, this remained stable but given the patient's clinical improvement we opted to send home with the above instructions, therapy and workup. The patient was noted to be generally weak secondary to the above illness. With IV fluids this resolved. Physical Therapy and Occupational Therapy saw the patient with the recommendations as noted above. The patient is a type 2 diabetic. He does have rather labile blood sugars as noted above. These were overall stable while here. He will continue to follow with Dr. Still of Endocrinology as an outpatient. The patient did have some mild microscopic hematuria while here. We will follow this further as we go down the road. The patient does have a history of gout. We will continue the allopurinol as noted above. The uric acid was a little high while here but given his acute renal issues this is not surprising. Before altering any medicines we will likely follow this further as an outpatient. In regards to the patient's history of repeated deep vein thromboses, he will continue on his current dose of Coumadin and his INRs have been therapeutic and he has done very well with this as an outpatient as well. All other medical conditions are stable and no other changes to plan of care at this time. For DVT prophylaxis the patient was continued on his home Coumadin. For GI prophylaxis the patient was given an oral diet as noted. The patient was a FULL CODE while here. DISPOSITION He is discharged to home today in stable and good condition. Certainly, all details from hospitalization cannot be summarized completely in this note so please review progress notes and records from the EMR as well. FRANKY
== END 2018-02-14 18:15 | disposition home or self-care (01) ==
LOC: MED 11:58 → INTOOBSV 11:58
PROVIDERS: ADMIT Internal Medicine; ATTEND Internal Medicine